=== PATIENT | male | born 1955 | race Caucasian/White ===

== ENCOUNTER 2021-04-14 18:17 | Inpatient (IN) | payer MEDICARE, SELFPAY ==
[2021-04-14] VITALS (7 sets, daily range): BP systolic 141–147; BP diastolic 74–88; PULSE 77–90; RESP 22–26; TEMP 36.5–37.1; O2SAT 83–94; BMI 32.3; BMI 31.9
--- NOTE | 2021-04-14 18:33 | ECG_ITS ---
APPROVED REPORT Exam: Resting ECG HR:87 bpm ECG Measurements Heart Rate 87 AXES RI 142 P 44 QRSd 100 QRS 6 QT 348 T -5 QTc 418 Conclusion Normal sinus rhythm Possible Left atrial enlargement T wave abnormality, consider inferior ischemia Abnormal ECG Electronically signed by : Cirilo Carrasquillo MD 04/18/2021 13:52:42
--- NOTE | 2021-04-14 18:51 | XR_ITS ---
PROCEDURE INFORMATION: Exam: XR Chest Exam date and time: 04/14/2021 6:51 PM Age: 65 years old Clinical indication: Cough and shortness of breath; Patient HX: Cough, congestion, shortness of breath, R/O covid 19. ; Additional info: SOA TECHNIQUE: Imaging protocol: XR of the chest. Views: 1 view. COMPARISON: No relevant prior studies available. FINDINGS: Lungs: Patchy left lung infiltrate peripherally, predominantly ground-glass, characteristic of COVID-19 pneumonitis. Pleural spaces: Unremarkable. No pleural effusion. No pneumothorax. Heart/Mediastinum: Unremarkable. No cardiomegaly. Bones/joints: Unremarkable. IMPRESSION: Patchy left lung infiltrate peripherally, predominantly ground-glass, characteristic of COVID-19 pneumonitis.
[2021-04-14 18:57] LABS: Influenza A, PCR Not Detected (NotDetected); Influenza B, PCR Not Detected (NotDetected)
--- NOTE | 2021-04-14 18:57 | HMH.EDGENADL ---
ED Disposition Clinical Impression: Pneumonia due to COVID-19 virus Respiratory failure with hypoxia Qualifiers: Chronicity: acute Qualified Code(s): J96.01 - Acute respiratory failure with hypoxia Pulmonary embolism Qualifiers: Pulmonary embolism type: single subsegmental (without acute cor pulmonale) Qualified Code(s): I26.93 - Single subsegmental pulmonary embolism without acute cor pulmonale Disposition: Admitted As Inpatient Condition on Discharge: Serious Referrals: Leroy Montero MD [Primary Care Provider] - - Critical Care Critical Care Time: Yes Attestation: On 04/14/21, the high probability of a clinically significant, sudden or life threatening deterioration of the following system(s) required my full and direct attention, intervention and personal management. The time I documented below is in addition to time spent performing reported procedures but includes the following listed in this critical care notation. Total Critical Care Time: 30 Vital system(s) involved:: Respiratory Failure My critical care processes included: Assessment & monitoring of V/S, Initial and Re-exams, Data Review/Interpretation, Coordinating Care, Medication Orders and management, Documentation Medical Decision Making - Joel Inquiry Pt receiving controlled substance: No Vital Signs: 04/14/21 18:18 04/14/21 18:19 04/14/21 18:22 Temperature 97.7 F Temperature Source Oral Pulse Rate Pulse Rate [Left Radial] 88 Respiratory Rate 26 H Blood Pressure [Right Arm] 142/74 H Blood Pressure Mean [Right Arm] 96 Blood Pressure Source [Right Arm] Automatic Cuff Blood Pressure Position [Right Arm] Sitting 02 Sat by Pulse Oximetry 83 L 86 L 91 L Oxygen Delivery Method Room Air Nasal Cannula Non-Rebreather Oxygen Flow Rate (LPM) 6 15 04/14/21 18:30 Temperature Temperature Source Pulse Rate 90 Pulse Rate [Left Radial] Respiratory Rate Blood Pressure [Right Arm] Blood Pressure Mean [Right Arm] Blood Pressure Source [Right Arm] Blood Pressure Position [Right Arm] 02 Sat by Pulse Oximetry 92 L Oxygen Delivery Method Oxygen Flow Rate (LPM) - Lab Data Lab Results 04/14/21 18:40: WBC 11.2 H, RBC 5.58, Hgb 17.2, Hct 51.5, MCV 92.4, MCH 30.7, MCHC 33.3, RDW 13.1, Plt Count 269, MPV 8.6, Neut % (Auto) 86.7 H, Lymph % (Auto) 10.6, [place] % (Auto) 1.9, Eos % (Auto) 0.0 L, Baso % (Auto) 0.8, Neut # (Auto) 9.7 H, Lymph # (Auto) 1.2, [place] # (Auto) 0.2, Eos # (Auto) 0.0, Baso # (Auto) 0.1, Total Counted 100, Neutrophils % (Manual) 82 H, Band Neutrophils % 8.0, Lymphocytes % (Manual) 10, Platelet Estimate Normal, RBC Morphology Normal 04/14/21 18:40: Sodium 133 L, Potassium 4.2, Chloride 94 L, Carbon Dioxide 30, Anion Gap 13.2, BUN 15, Creatinine 0.80, Estimated Creat Clear 113, Estimated GFR 96, Est GFR ( Amer) 117, Glucose 243 H, Calcium 8.8, Total Bilirubin 0.9, AST 74 H, ALT 66, Alkaline Phosphatase 89, Troponin I < 0.01, Total Protein 8.1, Albumin 3.9, Globulin 4.2 H, Albumin/Globulin Ratio 0.9 L 04/14/21 18:40: Lactate 2.2 H 04/14/21 18:40: SARS-CoV-2 (PCR) Detected A, Influenza A Untype (PCR) Not detected, Influenza Type B (PCR) Not detected 04/14/21 18:40: D-Dimer 0.92 H 04/14/21 18:40: ESR 7 04/14/21 18:40: Ferritin 305, C-Reactive Protein 140.5 H, Procalcitonin 0.243 04/14/21 19:11: Specimen Source R/r, O2 % 100, ABG pH 7.44, ABG pCO2 33.8 L, ABG pO2 67.7 L, ABG HCO3 22.3, ABG Total CO2 23.3, ABG O2 Saturation 95, ABG Base Excess -1.9, Willian Test Y Result diagrams: 04/14/21 18:40 04/14/21 18:40 Orders (Tests/Meds): ED MEDICATIONS Generic Name Dose Route Start Last Admin Trade Name Freq PRN Reason Stop Dose Admin Enoxaparin Sodium 110 mg 04/14/21 20:15 04/14/21 20:15 Enoxaparin 100mg/Ml Syringe 1 mg/kg (110 mg) 05/14/21 20:14 110 mg SQ Administration Q12H [facility] Ceftriaxone Sodium 1 gm/ 50 mls @ 100 mls/hr 04/14/21 19:15 04/14/21 20:00 Sodium Chloride IV 04/28/21 19:14 1
[2021-04-14 19:03] LABS: Basophils # 0.1 K/mm3 (0-0.2); Basophils % 0.8 % (0.1-2.0); Hematocrit 51.5 % (42.0-52.0); Hemoglobin 17.2 g/dL (14.1-18.0); Lymphocytes # 1.2 K/mm3 (0.7-4.5); Lymphocytes % 10.6 % (10-50); Mean Corpuscular HGB Conc 33.3 g/dL (31.8-35.4); Mean Corpuscular Hemoglobin 30.7 pg (27.0-31.2); Mean Corpuscular Volume 92.4 fl (80-94); Mean Platelet Volume 8.6 fl (7.4-10.4); Monocytes # 0.2 K/mm3 (0.1-1.0); Monocytes % 1.9 % (1.7-9.3); Neutrophils # 9.7 K/mm3 (1.8-7.8); Neutrophils % 86.7 % (37.0-80.0); Platelet Count 269 K/mm3 (142-424); Red Blood Count 5.58 M/mm3 (4.60-6.20); Red Cell Distribution Width 13.1 % (11.5-17.5); White Blood Count 11.2 K/mm3 (4.8-10.8)
[2021-04-14 19:05] LABS: MANUAL DIFFERENTIAL MANUAL DIFFERENTIAL (MANUAL DIFF)
[2021-04-14 19:09] LABS: Alanine Aminotransferase 66 U/L (12-78); Albumin Level 3.9 g/dl (3.5-5.0); Albumin/Globulin Ratio 0.9 (1.1-1.8); Alkaline Phosphatase 89 U/L (38-126); Anion Gap 13.2 mEq/L (5-15); Aspartate Amino Transferase 74 U/L (17-59); Bilirubin,Total 0.9 mg/dl (0.2-1.3); Blood Urea Nitrogen 15 mg/dl (9-20); Calcium 8.8 mg/dl (8.4-10.2); Carbon Dioxide 30 mmol/L (22.0-30.0); Chloride 94 mmol/L (98-107); Creatinine Clearance Estimated 113 mL/min (50-200); Estimated Glomerular Filt Rate 96 ml/min (>60); GFR (African American) 117 ML/MIN (>60); Globulin 4.2 g/dL (1.3-3.2); Glucose 243 mg/dl (74-100); Potassium 4.2 mmoL/L (3.5-5.1); Sodium 133 mmol/L (136-145); Total Protein,Serum 8.1 g/dl (6.3-8.2)
[2021-04-14 19:11] LABS: Lactic Acid 2.2 mmol/L (0.7-2.1)
--- NOTE | 2021-04-14 19:11 | CT_ITS ---
PROCEDURE INFORMATION: Exam: CTA Chest With Contrast Exam date and time: 04/14/2021 7:11 PM Age: 65 years old Clinical indication: Shortness of breath; Patient HX: Nonsmoker; Additional info: Covid, hypoxia TECHNIQUE: Imaging protocol: Computed tomographic angiography of the chest with contrast. 3D rendering (Not supervised by radiologist): MIP and/or 3D reconstructed images were created by the technologist. Radiation optimization: All CT scans at this facility use at least one of these dose optimization techniques: automated exposure control; mA and/or kV adjustment per patient size (includes targeted exams where dose is matched to clinical indication); or iterative reconstruction. Contrast material: ISO 370; Contrast volume: 70 ml; Contrast route: INTRAVENOUS (IV); COMPARISON: CR XR CHEST PORTABLE 04/14/2021 6:54 PM FINDINGS: Pulmonary arteries: Normal. No pulmonary emboli. Aorta: Unremarkable. No aortic aneurysm. No aortic dissection. Lungs: Posterior segment right lower lobe embolus. Bibasilar dependent atelectasis. Ground-glass peripheral infiltrates bilaterally characteristic of COVID-19 pneumonitis. Pleural spaces: Unremarkable. No pneumothorax. No pleural effusion. Heart: Unremarkable. No cardiomegaly. No pericardial effusion. Lymph nodes: Unremarkable. No enlarged lymph nodes. Liver: Fatty liver. Bones/joints: Unremarkable. No acute fracture. Soft tissues: Unremarkable. IMPRESSION: 1. Ground-glass peripheral infiltrates bilaterally characteristic of COVID-19 pneumonitis. 2. Posterior segment right lower lobe embolus. 3. Bibasilar dependent atelectasis. 4. Fatty liver.
[2021-04-14 19:14] LABS: Lymphocytes % 10 % (10-50); Neutrophils % 82 % (42-76); Platelet Estimate Normal; RBC Morphology Normal; Total Cells Counted 100
[2021-04-14 19:24] LABS: Coronavirus 19, PCR Detected (NotDetected)
[2021-04-14 19:25] LABS: C-Reactive Protein 140.5 mg/L (0-4)
[2021-04-14 19:28] LABS: D-Dimer 0.92 ug/mL (0.0-0.5)
[2021-04-14 19:29] LABS: Troponin I < 0.01 ng/ml (0.00-0.034)
[2021-04-14 19:39] LABS: Erythrocyte Sedimentation Rate 7 mm/hr (0-20)
[2021-04-14 19:57] LABS: Ferritin 305 ng/ml (17.9-464)
[2021-04-14 20:09] LABS: Procalcitonin 0.243 ng/mL (0.0-2.0)
[2021-04-14 20:09] LABS: ABG Base Excess -1.9 mmol/L (-2.4-2.3); ABG HCO3 22.3 mmhg (22.0-26.0); ABG Oxygen Saturation 95 % (90-100); ABG PCO2 33.8 mmhg (35.0-45.0); ABG PH 7.44 mmol/L (7.35-7.45); ABG PO2 67.7 mmhg (80-100); ABG TCO2 23.3 mmhg (23-27)
[2021-04-14 20:10] LABS: Allen's Test Y; Oxygen 100 %; Source R/R
--- NOTE | 2021-04-14 20:21 | PC.NURSE ---
pt states he does not see a family dr, cici Casey change pt pcp from Dr. Montero to Provider referral.
--- NOTE | 2021-04-14 20:24 | PC.NURSE ---
password setup as Oumar
--- NOTE | 2021-04-14 21:15 | PC.NURSE ---
patient up to floor via wheelchair @ this time.
[2021-04-14 21:30] LABS: Reflex Lactic Add Lactic Reflex
[2021-04-14 22:10] LABS: Lactate Dehydrogenase 435 U/L (313-618)
[2021-04-14 22:35] LABS: Lactic Acid Follow Up (RFLX 1) 1.2 mmol/L (0.7-2.1)
[2021-04-15] VITALS (8 sets, daily range): BP systolic 117–166; BP diastolic 58–86; PULSE 60–88; RESP 16–20; TEMP 36.5–36.9; O2SAT 90–96
--- NOTE | 2021-04-15 07:00 | CA_ITS ---
APPROVED REPORT EXAM: Comprehensive 2D, Doppler, and color-flow Echocardiogram [employer] Engineer: Rebecca Fong CRT Ht: 6 ft 0 in Wt: 241lbs BSA: 2.31 BP: 142/74 mmHg Indications: Covid 19 +, on vapotherm, PE 2D Dimensions LVOT 2.09 cm (M/F) 1.5-2.5 LA Volume 65.00 mL LA Volume Index 28.10 mL/m2 (M/F) 16-34 M-Mode Dimensions RVDd 2.71 cm (0.9-2.6) LA Diam 3.75 cm (1.9-4.0) LVDd 5.69 cm (3.5-5.7) Ao Diam 3.87 cm (2.0-3.7) LVDs 4.03 cm (3.5-5.7) IVSd 1.75 cm (0.6-1.1) PWd 1.08 cm (0.6-1.1) EF (Teich) 55.30% FS 29.20% EDV (Teich) 159.40 mL TAPSE 2.70 (<1.7) ESV (Teich) 71.30 mL LV Diastology E Decel Time 197.00 (160-240 msec) E/A Ratio 1.12 MED E' 3.90 (< 7 cm/sec) MED A' 6.80 cm/s E'/MED E' Ratio 29.82 (>14) LAT E' 12.30 (<10 cm/sec) LAT A' 5.20 cm/s E/LAT E' Ratio 9.46 (>14) Aortic Valve AO Peak GR. 8.10 mmHg Mitral Valve MV E Max Prashanth. 116.00 (40-130 cm/s) MV A Velocity 103.00 (40-130 cm/s) E/A Ratio 1.12 MV Decel. Time 197.00 (160-240 ms) MV PHT 58.00 ms Tricuspid Valve TR P. Velocity 110.00 cm/s RAP Estimate 10.00 mmHg RVSP 14.80 mmHg Left Ventricle Left atrium is mildly enlarged, left ventricle is normal size, there is no concentric left ventricular hypertrophy, visually estimated ejection fraction 55% with no regional wall motion abnormality, diastolic parameters are inconclusive. Right Ventricle Right atrium and right ventricle are mildly left with normal contractility. Aortic Valve Aortic valve is grossly normal, there is no aortic stenosis or aortic insufficiency. Mitral Valve Multiple leaflets are minimally thickened, there is mild-moderate regurgitation. Tricuspid Valve Tricuspid valve is grossly normal, there is trace tricuspid regurgitation, tricuspid regurgitation jet velocity is inadequate for calculation of the right ventricular systolic pressure. Pulmonic Valve Pulmonic valve is poorly visualized. Great Vessels Aortic root is normal size. Inferior vena cava is not well visualized. Pericardium No significant pericardial effusion noted. Conclusion 1. Mild biatrial enlargement, normal left ventricular size, visually estimated ejection fraction 55% with no regional wall motion abnormality, diastolic parameters are inconclusive. 2. Mildly enlarged right ventricle with normal contractility. 3. Trace mitral and tricuspid regurgitation. 4. No significant pericardial effusion noted. 5. Inferior vena cava is poorly visualized. Electronically signed by : Roger Miranda MD 04/15/2021 13:36:58
--- NOTE | 2021-04-15 07:40 | HMH.PHAVTE ---
[facility] Pharmacy VTE Monitoring - Patient Demographics Admission date: 04/15/21 Report Date: 04/15/21 Time: 07:40 Allergies/Adverse Reactions: Patient Allergies No Known Allergies Allergy (Verified 04/14/21 18:51) Height: 1.85 m Weight: 109.406 kg Patient Problems: Current Active Problems Pneumonia due to COVID-19 virus (Acute) Respiratory failure with hypoxia (Acute) Pulmonary embolism (Acute) - VTE Risk Labs: VTE Related Lab Results Hgb 17.2 g/dL (14.1-18.0) 04/14/21 18:40 Hct 51.5 % (42.0-52.0) 04/14/21 18:40 Plt Count 269 K/mm3 (142-424) 04/14/21 18:40 BUN 15 mg/dl (9-20) 04/14/21 18:40 Creatinine 0.80 mg/dl (0.66-1.25) 04/14/21 18:40 Estimated Creat Clear 113 mL/min (50-200) 04/14/21 18:40 VTE Score: 2 Clinical Trial Participant: No - Prophylaxis VTE Prophylaxis Ordered?: Yes Types of VTE Prophylaxis: TEDS Knee High, Pharmacological Pharmacologic Type: Enoxaparin
--- NOTE | 2021-04-15 08:38 | PC.NURSE ---
Pt has been pleasant and cooperative since arriving to floor. Pt is tolerating 30L, 100% O2 via Vapotherm well with sats >90%. No complaints have been voiced to staff. Call light within reach.
--- NOTE | 2021-04-15 09:17 | HMH.HP ---
*Admission Date: 04/15/21 *Chief complaint: Shortness of breath *History of present illness: 65-year-old male patient presents to the [facility] emergency department with reports of increasing shortness of breath, fatigue, nonproductive cough for approximately 11 days. He reports he has had fever/chills/body aches and Waiting to get better and shortness of breath to decrease when shortness of breath increased he decided to go to the emergency department. 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 He does not have a primary care provider denies any medication and does not have any chronic medical conditions, he also reports he is a non-smoker 04/14/21 CXR: FINDINGS: Lungs: Patchy left lung infiltrate peripherally, predominantly ground-glass, characteristic of COVID-19 pneumonitis. Pleural spaces: Unremarkable. No pleural effusion. No pneumothorax. Heart/Mediastinum: Unremarkable. No cardiomegaly. Bones/joints: Unremarkable. IMPRESSION: Patchy left lung infiltrate peripherally, predominantly ground-glass, characteristic of COVID-19 pneumonitis. Electronically signed by Tomas Lopez MD 04/14/21 Chest CTA: FINDINGS: Pulmonary arteries: Normal. No pulmonary emboli. Aorta: Unremarkable. No aortic aneurysm. No aortic dissection. Lungs: Posterior segment right lower lobe embolus. Bibasilar dependent atelectasis. Ground-glass peripheral infiltrates bilaterally characteristic of COVID-19 pneumonitis. Pleural spaces: Unremarkable. No pneumothorax. No pleural effusion. Heart: Unremarkable. No cardiomegaly. No pericardial effusion. Lymph nodes: Unremarkable. No enlarged lymph nodes. Liver: Fatty liver. Bones/joints: Unremarkable. No acute fracture. Soft tissues: Unremarkable. IMPRESSION: 1. Ground-glass peripheral infiltrates bilaterally characteristic of COVID-19 pneumonitis. 2. Posterior segment right lower lobe embolus. 3. Bibasilar dependent atelectasis. 4. Fatty liver. Addendum Dictated By: Tomas Lopez MD 65-year-old male patient resting in bed quietly denies any increased shortness of breath during the night current oxygenation 94% on 30 L 100% Vapotherm. [facility] History *Have you ever received a pneumonia vaccine?: No *Have you received a flu vaccine this season?: No - *Social History Last grade of school completed: Some college Smoking Status: Never smoker Alcohol Intake: never *Occupational Status:: employed Household Members: spouse *Travel in the last 8 weeks: None Family Hx:: No significant family history Review of Systems - Review of Systems Review of systems:: pertinent systems reviewed and negative unless documented below - Constitutional Reports body ache(s), Reports chills, Reports fatigue, Reports fever(s) - Eyes Denies change in vision, Denies double vision - ENT Denies difficulty swallowing, Denies headache(s) - *Cardiovascular Reports shortness of breath, Reports shortness of breath with activity, Denies chest pain - *Respiratory Reports chest congestion, Reports cough, Reports shortness of breath, Reports shortness of breath with activity, Denies coughing up blood - *Gastrointestinal Denies abdominal pain, Denies change in stools - *Musculoskeletal Denies abnormal walking, Denies back pain - Integumentary/Breasts Denies hair loss, Denies non-healing lesions - *Neurologic Reports weakness, Denies abnormal walking, Denies abnormal speech - Psychiatric Denies lack of enjoyment, Denies behavioral changes - Endocrine Denies cold intolerance, Denies excessive sweating - Hematologic/Lymphatic Denies easy bleeding, Denies easy bruising - Allergic/Immunologic Denies GI upset with certain foods, Denies itchy eyes Meds Home Medications Medication Instructions Recorded Confirmed Type No Known Home Medications 04/14/21 04/14/21 History
--- NOTE | 2021-04-15 09:30 | HMH.PULMCON ---
*Admission Date: 04/15/21 *Reason for consult:: Acute hypoxic respiratory failure, COVID-19 pneumonia *History of present illness: Mr. Donald is a 65-year-old no significant prior respiratory complaints, no smoking history, not yet vaccinated for COVID-19 pneumonia presented to the hospital with worsening respiratory status and found to be having Covid important was called for further management. 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 He is not sure where he has contracted COVID-19 from. [facility] History *Have you ever received a pneumonia vaccine?: No *Have you received a flu vaccine this season?: No - *Social History Last grade of school completed: Some college Smoking Status: Never smoker Alcohol Intake: never *Occupational Status:: employed Household Members: spouse *Travel in the last 8 weeks: None Family Hx:: No significant family history ROS - Cons Reports body ache(s), Reports chills, Reports lack of energy, Reports malaise - Eyes Denies change in vision - ENT Denies bleeding gums - Card Reports shortness of breath, Reports shortness of breath with activity - Resp Respiratory: Reports change in phlegm color, Reports chest congestion, Reports cough, Reports excessive phlegm production, Reports cough with sputum production, Denies wheezing - GI Gastrointestingal: Denies: abdominal pain - Psych Denies thoughts of hurting/killing others, Denies thoughts of hurting/killing yourself Meds Home Medications Medication Instructions Recorded Confirmed Type No Known Home Medications 04/14/21 04/14/21 History Allergies Allergy/AdvReac Type Severity Reaction Status Date / Time No Known Allergies Allergy Verified 04/14/21 18:51 Exam - Constitutional Constitutional:: Absent: no acute distress, comfortable - HENMT Exam HENMT: Present: normocephalic, atraumatic - Eye Exam Eyes:: Present: normal appearance both eyes and related structures - Neck Exam Neck:: Present: normal visual inspection - Respiratory Exam Respiratory:: Present: able to speak in complete sentences, respiratory distress, rales. Absent: accessory muscle use, wheezing - Cardiovascular Exam Cardiac:: Present: S1, S2 - GI Exam GI:: Present: soft - Skin Exam Skin: Present: warm, no rash - Neurological Exam Neurological: Present: alert, awake, normal cognition - Extremities Exam Extremities: Present: no cyanosis, no clubbing, no edema Internal Medicine - CN: Reslt - Labs CBC & Chem 7: 04/14/21 18:40 04/14/21 18:40 Labs: Short CBC 04/14/21 Range/Units 18:40 WBC 11.2 H (4.8-10.8) K/mm3 Hgb 17.2 (14.1-18.0) g/dL Hct 51.5 (42.0-52.0) % Plt Count 269 (142-424) K/mm3 BMP 04/14/21 18:40 Sodium 133 L Potassium 4.2 Chloride 94 L Carbon Dioxide 30 BUN 15 Creatinine 0.80 Glucose 243 H Calcium 8.8 Cardiac Enzymes 04/14/21 Range/Units 18:40 Troponin I < 0.01 (0.00-0.034) ng/ml Liver Function 04/14/21 Range/Units 18:40 Total Bilirubin 0.9 (0.2-1.3) mg/dl AST 74 H (17-59) U/L ALT 66 (12-78) U/L Alkaline Phosphatase 89 (38-126) U/L Albumin 3.9 (3.5-5.0) g/dl - ABG Interpretation ABG results: 04/14/21 19:11 ABG pH 7.44 ABG pCO2 33.8 L ABG pO2 67.7 L ABG HCO3 22.3 ABG Total CO2 23.3 ABG O2 Saturation 95 ABG Base Excess -1.9 Assessment and Plan - Assessment and plan all Dx Assessment and Plan for all problems:: #Acute hypoxic respiratory failure #COVID-19 pneumonia: 65-year-old male, no significant prior respiratory complaints, no significant smoking history. Not yet vaccinated for COVID-19 pneumonia. Present with worsening fatigue malaise and respiratory distress. CRP elevated at 140. D-dimer at 0.92. CTA revealed no pulmonary embolism showed bilateral diffuse groundglass opacities along with
--- NOTE | 2021-04-15 15:02 | PC.NURSE ---
RESP CARE NOTE: Pt expectorated moderate amount of thick yellow sputum, specimen sent to lab.
--- NOTE | 2021-04-15 19:15 | PC.NURSE ---
no acute changes this shift. remains on vapotherm 30\100. tolerating well. appetite fair. no c/o this shift.
[2021-04-16] VITALS (14 sets, daily range): BP systolic 115–158; BP diastolic 50–79; PULSE 48–64; RESP 18–22; TEMP 36.1–36.9; O2SAT 86–97; BMI 31.8
[2021-04-16 07:13] LABS: Alanine Aminotransferase 45 U/L (12-78); Albumin Level 3.3 g/dl (3.5-5.0); Albumin/Globulin Ratio 0.9 (1.1-1.8); Alkaline Phosphatase 79 U/L (38-126); Anion Gap 13.8 mEq/L (5-15); Aspartate Amino Transferase 52 U/L (17-59); Bilirubin,Total 0.6 mg/dl (0.2-1.3); Blood Urea Nitrogen 26 mg/dl (9-20); Calcium 8.2 mg/dl (8.4-10.2); Carbon Dioxide 25 mmol/L (22.0-30.0); Chloride 104 mmol/L (98-107); Creatinine Clearance Estimated 110 mL/min (50-200); Estimated Glomerular Filt Rate 112 ml/min (>60); GFR (African American) 136 ML/MIN (>60); Globulin 3.5 g/dL (1.3-3.2); Glucose 269 mg/dl (74-100); Potassium 3.8 mmoL/L (3.5-5.1); Sodium 139 mmol/L (136-145); Total Protein,Serum 6.8 g/dl (6.3-8.2)
--- NOTE | 2021-04-16 09:24 | P.PN_ITS ---
Internal Medicine - PN: Subj *Date: 04/16/21 *Time: 11:40 Interval history: Patient respiratory status remained relatively stable since yesterday. Denies any worsening respiratory symptoms. Exam - Constitutional Constitutional:: Present: no acute distress, comfortable - HENMT Exam HENMT: Present: normocephalic, atraumatic - Eye Exam Eyes:: Present: normal appearance both eyes and related structures - Neck Exam Neck:: Present: normal visual inspection - Respiratory Exam Respiratory:: Present: able to speak in complete sentences, respiratory distress, rales. Absent: accessory muscle use, wheezing - Cardiovascular Exam Cardiac:: Present: S1, S2 - GI Exam GI:: Present: soft - Skin Exam Skin: Present: warm, no rash - Neurological Exam Neurological: Present: alert, awake, normal cognition - Extremities Exam Extremities: Present: no cyanosis, no clubbing, no edema Assessment and Plan - Assessment and plan all Dx Assessment and Plan for all problems:: #Acute hypoxic respiratory failure #COVID-19 pneumonia: 65-year-old male, no significant prior respiratory complaints, no significant smoking history. Not yet vaccinated for COVID-19 pneumonia. Present with worsening fatigue malaise and respiratory distress. CRP elevated at 140. D-dimer at 0.92. CTA revealed no pulmonary embolism showed bilateral diffuse groundglass opacities along with lower lobe patchy consolidation/atelectasis. Interval update: Respiratory status remains stable. Sputum culture less than 10 WBC, gram- positive cocci, yeast and hyphae. Echocardiogram, normal EF with inconclusive diastolic parameters. Plan: -Initiate proning protocol, discussed with the nursing staff to ensure compliance -Continue high flow nasal cannula to maintain O2 saturation goal of 88% -Continue ceftriaxone azithromycin for total of 5 days, blood cultures pending. -Continue remdesivir, dexamethasone and baricitinib. -Combivent every 6 as needed. Thank for involving pulmonary in this patient care. We will continue to follow.
--- NOTE | 2021-04-16 09:26 | P.PN_ITS ---
Internal Medicine - PN: Subj *Date: 04/16/21 *Time: 09:26 Interval history: 65-year-old male patient lying in bed resting quietly, he denies any increased respiratory distress during the night and reports he feels slightly better today than yesterday. Oxygenation 93% on 30 L 100% Vapotherm Exam Vital signs and Labs for Last 24 Hours: Temp Pulse Resp BP Pulse Ox 97.9 F 50 L 19 141/56 H 97 04/16/21 08:00 04/16/21 08:00 04/16/21 08:00 04/16/21 08:00 04/16/21 08:00 Laboratory Results - last 24 hr 04/16/21 06:14: Sodium 139, Potassium 3.8, Chloride 104, Carbon Dioxide 25, Anion Gap 13.8, BUN 26 H D, Creatinine 0.70, Estimated Creat Clear 110, Estimated GFR 112, Est GFR ( Amer) 136, Glucose 269 H, Calcium 8.2 L, Tot al Bilirubin 0.6, AST 52 D, ALT 45 D, Alkaline Phosphatase 79, Total Protein 6.8, Albumin 3.3 L D, Globulin 3.5 H, Albumin/Globulin Ratio 0.9 L I & O for Last 24 hours: Intake & Output 04/13/21 04/14/21 04/15/21 04/16/21 23:59 23:59 23:59 23:59 Intake Total 360 / 360 Output Total 1800 / 2350 950 / 950 Balance -1440 / -1990 -950 / -950 Weight 241 lb 3.2 oz 240 lb 3.2 oz Microbiology Reports for the Last 24 Hours: Microbiology 04/15/21 09:18 Sputum - Expectorated Sputum Gram Stain - Final - Constitutional no acute distress - *Routine HEENT Exam Head: Present: normocephalic Eye: Present: EOMI ENT: Present: mucous membranes moist - *Routine Neck Exam Present: trachea midline. Absent: tracheal deviation - *Routine Respiratory Exam Present: crackles. Absent: accessory muscle use - *Routine Cardiovascular Exam Present: RRR - *Routine Abdominal Exam Present: soft, normoactive bowel sounds. Absent: tenderness, firm - *Routine Extremities Exam Present: full ROM, pulses intact. Absent: cyanosis, clubbing, calf tenderness - *Routine Skin Exam Present: intact, dry. Absent: cyanosis, erythema - *Routine Neurological Exam Present: alert, oriented X3. Absent: motor deficit - Routine Psychiatric Exam Present: normal affect, normal thought process. Absent: visual hallucinations Assessment and Plan - Assessment and plan all Dx Assessment and Plan for all problems:: Rounded with Dr. Maxwell, all orders per Dr. Recio: 1. Continue to wean oxygen as tolerated 2. Continue current medical regimen 3. Pulmonology following
--- NOTE | 2021-04-16 11:38 | PC.NURSE ---
spoke with dr peters who stated he wanted patient placed into stepdown. orders will be placed.
--- NOTE | 2021-04-16 12:38 | PC.NURSE ---
Report received from Ameya Glover RN
--- NOTE | 2021-04-16 12:59 | PC.NURSE ---
Pt just transferred to 216 per Kyle Morales, SRNA
--- NOTE | 2021-04-16 15:49 | PC.NURSE ---
Pt is alert and oriented x4. He remains on vapotherm 30L/100% with O2 sats mostly > 88%. It occasionally drops as low 84% but he rebounds fairly quickly. He's been sinus cristela on telemetry. He uses a urinal at the bedside independently. Appetite is OK. No complaints verbalized.
[2021-04-17] VITALS (14 sets, daily range): BP systolic 109–167; BP diastolic 54–80; PULSE 45–63; RESP 23–38; TEMP 36.3–36.9; O2SAT 88–97; BMI 31.4; BMI 31.5
--- NOTE | 2021-04-17 03:16 | PC.NURSE ---
1445 dr lynch was notified regarding pt with bradycardia on monitor, no heart block seen, pt arousable and b/p stable, pt with no complaints at this time, dr. lynch stated to continue to monitor, no orders or changes given at this time.
[2021-04-17 06:29] LABS: Basophils # 0.1 K/mm3 (0-0.2); Basophils % 0.4 % (0.1-2.0); Hematocrit 47.1 % (42.0-52.0); Hemoglobin 15.3 g/dL (14.1-18.0); Lymphocytes # 1.1 K/mm3 (0.7-4.5); Lymphocytes % 8.1 % (10-50); Mean Corpuscular HGB Conc 32.5 g/dL (31.8-35.4); Mean Corpuscular Hemoglobin 30.3 pg (27.0-31.2); Mean Corpuscular Volume 93.2 fl (80-94); Monocytes # 0.4 K/mm3 (0.1-1.0); Neutrophils # 12.6 K/mm3 (1.8-7.8); Neutrophils % 88.5 % (37.0-80.0); Platelet Count 360 K/mm3 (142-424); Red Blood Count 5.05 M/mm3 (4.60-6.20); Red Cell Distribution Width 13.2 % (11.5-17.5); White Blood Count 14.2 K/mm3 (4.8-10.8)
[2021-04-17 06:32] LABS: Alanine Aminotransferase 43 U/L (12-78); Albumin Level 3.2 g/dl (3.5-5.0); Albumin/Globulin Ratio 0.9 (1.1-1.8); Alkaline Phosphatase 82 U/L (38-126); Anion Gap 9.7 mEq/L (5-15); Aspartate Amino Transferase 54 U/L (17-59); Bilirubin,Total 0.4 mg/dl (0.2-1.3); Blood Urea Nitrogen 24 mg/dl (9-20); Calcium 7.8 mg/dl (8.4-10.2); Carbon Dioxide 26 mmol/L (22.0-30.0); Chloride 106 mmol/L (98-107); Creatinine Clearance Estimated 110 mL/min (50-200); Estimated Glomerular Filt Rate 112 ml/min (>60); GFR (African American) 136 ML/MIN (>60); Globulin 3.5 g/dL (1.3-3.2); Glucose 235 mg/dl (74-100); Potassium 3.7 mmoL/L (3.5-5.1); Sodium 138 mmol/L (136-145); Total Protein,Serum 6.7 g/dl (6.3-8.2)
[2021-04-17 06:51] LABS: MANUAL DIFFERENTIAL MANUAL DIFFERENTIAL (MANUAL DIFF)
--- NOTE | 2021-04-17 07:09 | PC.NURSE ---
pt noted with bradycardia through the night, HR 43 to 49, pt asymptomatic, pt has been on vapotherm most of night at 30/100; pt had episode when ambulating sats dropped to 78, pt wanted up in chair and non rebreather placed as it was taking more effort for sats to get to 88%. pt remains on non-rebreather with sats 88-90.
[2021-04-17 08:48] LABS: Lymphocytes % 8 % (10-50); Neutrophils % 92 % (42-76); Platelet Estimate Normal; Total Cells Counted 100
[2021-04-17 08:49] LABS: RBC Morphology Normal
--- NOTE | 2021-04-17 09:32 | P.PN_ITS ---
Internal Medicine - PN: Subj *Date: 04/17/21 *Time: 13:37 Interval history: No acute respiratory events overnight. Patient oxygenation requirements continue to worsen. He denies any worsening respiratory symptoms. Exam - Constitutional Constitutional:: Present: no acute distress, comfortable - HENMT Exam HENMT: Present: normocephalic, atraumatic - Eye Exam Eyes:: Present: normal appearance both eyes and related structures - Neck Exam Neck:: Present: normal visual inspection - Respiratory Exam Respiratory:: Present: able to speak in complete sentences, respiratory distress, rales - Cardiovascular Exam Cardiac:: Present: S1, S2 - GI Exam GI:: Present: soft - Skin Exam Skin: Present: warm, no rash - Neurological Exam Neurological: Present: alert, awake, normal cognition - Extremities Exam Extremities: Present: no cyanosis, no clubbing, no edema Assessment and Plan - Assessment and plan all Dx Assessment and Plan for all problems:: #Acute hypoxic respiratory failure #COVID-19 pneumonia: #Pulmonary embolus: 65-year-old male, no significant prior respiratory complaints, no significant smoking history. Not yet vaccinated for COVID-19 pneumonia. Present with worsening fatigue malaise and respiratory distress. CRP elevated at 140. D-dimer at 0.92. CTA showed right lower lobe pulmonary emboli showed bilateral diffuse groundglass opacities along with lower lobe patchy consolidation/atelectasis. Sputum culture less than 10 WBC, gram-positive cocci, yeast and hyphae. Echocardiogram, normal EF with inconclusive diastolic parameters. Interval update: Patient respiratory status remain critical needing high oxygen requirements. Patient saturating 89 to 90% on high flow nasal cannula this morning. He is not compliant with proning protocol. I have discussed with the patient regarding the importance of proning protocol. And also discussed with the family regarding the management options and possible outcomes along with associated mor bidity mortality Slight worsening leukocytosis. Renal function stable. Plan: -Continue proning protocol, patient reiterated the need for proning again today -Continue high flow nasal cannula to maintain O2 saturation goal of 88% -Continue ceftriaxone azithromycin for total of 5 days, blood cultures no growth 48 hours. Follow-up with nasal MRSA PCR -Continue remdesivir, dexamethasone and baricitinib. -Continue Lovenox twice daily for PE -Combivent every 6 as needed. Thank for involving pulmonary in this patient care. We will continue to follow.
--- NOTE | 2021-04-17 10:31 | HMH.ACPN2 ---
Internal Medicine - PN: Subj *Date: 04/17/21 *Time: 09:15 Interval history: pt states soa, has been moving around in room, states he did not eat breakfast but he has been eating snack cakes Exam Vital signs and Labs for Last 24 Hours: Temp Pulse Resp BP Pulse Ox 98.1 F 48 L 26 H 161/80 H 88 L 04/17/21 08:00 04/17/21 10:00 04/17/21 10:00 04/17/21 10:00 04/17/21 10:00 Laboratory Results - last 24 hr 04/17/21 05:39: WBC 14.2 H D, RBC 5.05, Hgb 15.3, Hct 47.1, MCV 93.2, MCH 30.3, MCHC 32.5, RDW 13.2, Plt Count 360 D, MPV 9.0, Neut % (Auto) 88.5 H, Lymph % (Auto) 8.1 L, [place] % (Auto) 3.0, Eos % (Auto) 0.0 L, Baso % (Auto) 0.4, Neut # (Auto) 12.6 H, Lymph # (Auto) 1.1, [place] # (Auto) 0.4, Eos # (Auto) 0.0, Baso # (Auto) 0.1, Total Counted 100, Neutrophils % (Manual) 92 H, Lymphocytes % (Manual) 8 L, Platelet Estimate Normal, RBC Morphology Normal 04/17/21 05:39: Sodium 138, Potassium 3.7, Chloride 106, Carbon Dioxide 26, Anion Gap 9.7, BUN 24 H, Creatinine 0.70, Estimated Creat Clear 110, Estimated GFR 112, Est GFR ( Amer) 136, Glucose 235 H, Calcium 7.8 L, Total Bilirubin 0.4, AST 54, ALT 43, Alkaline Phosphatase 82, Total Protein 6.7, Albumin 3.2 L, Globulin 3.5 H, Albumin/Globulin Ratio 0.9 L I & O for Last 24 hours: Intake & Output 04/14/21 04/15/21 04/16/21 04/17/21 11:59 11:59 11:59 11:59 Intake Total 240 / 240 120 / 120 2181 / 2181 Output Total 300 / 300 2450 / 2925 2575 / 2575 Balance -60 / -60 -2330 / -2805 -394 / -394 Weight 241 lb 3.2 oz 240 lb 3.2 oz 237 lb 3.2 oz Microbiology Reports for the Last 24 Hours: Microbiology 04/15/21 09:18 Sputum - Expectorated Sputum Gram Stain - Final 04/15/21 09:18 Sputum - Expectorated Sputum Sputum Culture - Preliminary 04/14/21 18:52 Blood Blood Culture - Preliminary NO GROWTH AFTER 48 HOURS 04/14/21 18:52 Blood Blood Culture - Preliminary NO GROWTH AFTER 48 HOURS - Constitutional no acute distress - *Routine HEENT Exam Head: Present: normocephalic Eye: Present: PERRL ENT: Present: mucous membranes moist - *Routine Neck Exam Present: supple. Absent: lymphadenopathy - *Routine Respiratory Exam Present: rhonchi, diminished air movement - *Routine Cardiovascular Exam Present: RRR - *Routine Abdominal Exam Present: soft, normoactive bowel sounds. Absent: tenderness - *Routine Extremities Exam Absent: cyanosis, clubbing, edema - *Routine Skin Exam Present: warm. Absent: rash - *Routine Neurological Exam Present: alert, oriented X3 Assessment and Plan (1) Pneumonia due to COVID-19 virus Status: Acute Category: Medical Code(s): U07.1 - COVID-19; J12.82 - Pneumonia due to coronavirus disease 2019 (2) Pulmonary embolism Status: Acute Qualifiers: Pulmonary embolism type: single subsegmental (without acute cor pulmonale) Qualified Code(s): I26.93 - Single subsegmental pulmonary embolism without acute cor pulmonale Category: Medical Code(s): I26.99 - Other pulmonary embolism without acute cor pulmonale (3) Respiratory failure with hypoxia Status: Acute Qualifiers: Chronicity: acute Qualified Code(s): J96.01 - Acute respiratory failure with hypoxia Category: Medical Code(s): J96.91 - Respiratory failure, unspecified with hypoxia - Assessment and plan all Dx Assessment and Plan for all problems:: rounded with dr zurita all orders per dr zurita pulm consult
--- NOTE | 2021-04-17 17:09 | PC.NURSE ---
Pt alert and oriented x 4. Lungs clear but diminished. He remains on 40L/100% vapotherm and NRB. O2 sats have been 82-88% but renee as high as 98% when pt laid on his side/stomach. He was unable to lay completely flat on his stomach but tolerated his side/stomach for 5 hours so far. Appetite has been poor today, he mainly wanted to sleep but was encouraged to get up to the chair and eat. He has been sinus cristela w/prolonged qt on telemetry. HR as low as 40's. I've spoken with multiple family members multiple times today and they have been updated on pt's condition and poc.
[2021-04-18] VITALS (14 sets, daily range): BP systolic 116–187; BP diastolic 61–117; PULSE 50–88; RESP 20–40; TEMP 36.3–36.7; O2SAT 90–99; BMI 31.5
--- NOTE | 2021-04-18 05:51 | PC.NURSE ---
pt resltless through the night, pt remains on vapotherm with use of non rebreather on occassion, pt sats 90-94%, pt would not completely prone through the night and would lay on side to side only, pt stated his back and hip hurt when he lays pronem VSS
[2021-04-18 06:37] LABS: Basophils # 0.1 K/mm3 (0-0.2); Basophils % 0.4 % (0.1-2.0); Eosinophils % 0.1 % (0.1-12.0); Hematocrit 44.3 % (42.0-52.0); Hemoglobin 14.8 g/dL (14.1-18.0); Lymphocytes # 0.7 K/mm3 (0.7-4.5); Mean Corpuscular HGB Conc 33.5 g/dL (31.8-35.4); Mean Corpuscular Hemoglobin 30.3 pg (27.0-31.2); Mean Corpuscular Volume 90.4 fl (80-94); Mean Platelet Volume 8.9 fl (7.4-10.4); Monocytes # 0.2 K/mm3 (0.1-1.0); Neutrophils % 91.5 % (37.0-80.0); Platelet Count 358 K/mm3 (142-424); Red Blood Count 4.89 M/mm3 (4.60-6.20); Red Cell Distribution Width 13.3 % (11.5-17.5)
[2021-04-18 06:45] LABS: MANUAL DIFFERENTIAL MANUAL DIFFERENTIAL (MANUAL DIFF)
[2021-04-18 06:52] LABS: Alanine Aminotransferase 42 U/L (12-78); Albumin Level 3.2 g/dl (3.5-5.0); Albumin/Globulin Ratio 0.9 (1.1-1.8); Alkaline Phosphatase 85 U/L (38-126); Anion Gap 12.6 mEq/L (5-15); Aspartate Amino Transferase 62 U/L (17-59); Bilirubin,Total 0.8 mg/dl (0.2-1.3); Blood Urea Nitrogen 15 mg/dl (9-20); Calcium 7.8 mg/dl (8.4-10.2); Carbon Dioxide 23 mmol/L (22.0-30.0); Chloride 105 mmol/L (98-107); Creatinine Clearance Estimated 110 mL/min (50-200); Estimated Glomerular Filt Rate 134 ml/min (>60); GFR (African American) 163 ML/MIN (>60); Globulin 3.5 g/dL (1.3-3.2); Glucose 178 mg/dl (74-100); Potassium 3.6 mmoL/L (3.5-5.1); Sodium 137 mmol/L (136-145); Total Protein,Serum 6.7 g/dl (6.3-8.2)
[2021-04-18 07:43] LABS: Lymphocytes % 6 % (10-50); Monocytes % 3 % (2-9); Neutrophils % 91 % (42-76); Platelet Estimate Normal; RBC Morphology Normal; Total Cells Counted 100
--- NOTE | 2021-04-18 09:18 | HMH.ACPN2 ---
Internal Medicine - PN: Subj *Date: 04/18/21 *Time: 09:18 Interval history: 65-year-old male patient sitting up in chair in no respiratory distress. Current oxygenation 92% on 30 L 100% Vapotherm with 100% nonrebreather occasionally. Explained importance of pronation the patient he verbalizes understanding and reports he does have a painful lower back, explained we will prescribe pain medicine and he will attempt to pronate more often. Long discussion with and 2 sons regarding patient medical condition all are in agreement with intubation. If necessary Exam Vital signs and Labs for Last 24 Hours: Temp Pulse Resp BP Pulse Ox 98.1 F 58 L 40 H 160/80 H 93 L 04/18/21 02:00 04/18/21 06:00 04/18/21 06:00 04/18/21 06:00 04/18/21 06:00 Laboratory Results - last 24 hr 04/18/21 05:34: WBC 12.0 H, RBC 4.89, Hgb 14.8, Hct 44.3, MCV 90.4, MCH 30.3, MCHC 33.5, RDW 13.3, Plt Count 358, MPV 8.9, Neut % (Auto) 91.5 H, Lymph % (Auto) 6.0 L, [place] % (Auto) 2.0, Eos % (Auto) 0.1, Baso % (Auto) 0.4, Neut # (Auto) 11.0 H, Lymph # (Auto) 0.7, [place] # (Auto) 0.2, Eos # (Auto) 0.0, Baso # (Auto) 0.1, Total Counted 100, Neutrophils % (Manual) 91 H, Lymphocytes % (Manual) 6 L, Monocytes % (Manual) 3, Platelet Estimate Normal, RBC Morphology Normal 04/18/21 05:34: Sodium 137, Potassium 3.6, Chloride 105, Carbon Dioxide 23, Anion Gap 12.6, BUN 15 D, Creatinine 0.60 L, Estimated Creat Clear 110, Estimated GFR 134, Est GFR ( Amer) 163, Glucose 178 H D, Calcium 7.8 L, Total Bilirubin 0.8, AST 62 H, ALT 42, Alkaline Phosphatase 85, Total Protein 6.7, Albumin 3.2 L, Globulin 3.5 H, Albumin/Globulin Ratio 0.9 L I & O for Last 24 hours: Intake & Output 01/10/22 01/11/22 01/12/22 01/13/22 23:59 23:59 23:59 23:59 Intake Total 360 / 360 600 / 600 2762 / 3744 982 / 982 Output Total 1800 / 2350 2650 / 3025 1375 / 1775 400 / 400 Balance -1440 / -1989 -0 / -2424 1387 / 1969 582 / 582 Weight 240 lb 3.2 oz 238 lb 1.588 oz 238 lb 1.588 oz Microbiology Reports for the Last 24 Hours: Microbiology 04/15/21 09:18 Sputum - Expectorated Sputum Gram Stain - Final 04/15/21 09:18 Sputum - Expectorated Sputum Sputum Culture - Preliminary - Constitutional no acute distress - *Routine HEENT Exam Head: Present: normocephalic Eye: Present: EOMI ENT: Present: mucous membranes moist - *Routine Neck Exam Present: trachea midline. Absent: tracheal deviation - *Routine Respiratory Exam Present: crackles. Absent: accessory muscle use - *Routine Cardiovascular Exam Present: RRR - *Routine Abdominal Exam Present: soft, normoactive bowel sounds. Absent: tenderness, firm - *Routine Extremities Exam Present: edema, full ROM, pulses intact. Absent: cyanosis, clubbing - *Routine Skin Exam Present: intact, dry. Absent: cyanosis, erythema - *Routine Neurological Exam Present: alert, oriented X3. Absent: motor deficit - Routine Psychiatric Exam Present: normal affect, normal thought process. Absent: visual hallucinations Assessment and Plan - Assessment and plan all Dx Assessment and Plan for all problems:: Rounded with Dr. Marcum, all orders per Dose: 1. Continue current medical regimen 2. Wean O2 as tolerated 3. Increased pronation 4. [place] 5 every 6 as needed pain
--- NOTE | 2021-04-18 09:21 | PC.NURSE ---
Addendum entered by Rena Dumont RN 04/18/21 09:27: Notified Nursing Staff, Dredge Pumper, and Case Management of visitation exception. Mikey Dumont RN, CNO Original Note: Notified per Case Management of family desire to visit patient. Chart reviewed per myself. Spoke to directly via phone. Notified (Lise) that she could visit patient daily for short interval, no greater than 3 hours. Educated in detail that she must remain at bedside with mask in use. Notified that if patient condition changed or deteriorated, would re-evaluate visitation restrictions. Notified in detail that non-compliance would result in forefiture of visitation exception. Will follow up as needed. Alfred Dumont RN, CNO
--- NOTE | 2021-04-18 09:32 | HMH.PULMPN ---
Internal Medicine - PN: Subj *Date: 04/18/21 *Time: 11:45 Interval history: No acute respiratory events overnight. Patient denies any improvement with symptoms. Exam - Constitutional Constitutional:: Present: no acute distress, comfortable - HENMT Exam HENMT: Present: normocephalic, atraumatic - Eye Exam Eyes:: Present: normal appearance both eyes and related structures - Neck Exam Neck:: Present: normal visual inspection - Respiratory Exam Respiratory:: Present: respiratory distress, rales. Absent: able to speak in complete sentences, wheezing - Cardiovascular Exam Cardiac:: Present: S1, S2 - GI Exam GI:: Present: soft, no hepatosplenomegaly - Skin Exam Skin: Present: warm, no rash - Neurological Exam Neurological: Present: alert, awake, normal cognition - Extremities Exam Extremities: Present: no cyanosis, no clubbing, no edema - Psychiatric Exam Psychiatric: Present: normal affect Assessment and Plan - Assessment and plan all Dx Assessment and Plan for all problems:: #Acute hypoxic respiratory failure #COVID-19 pneumonia: #Pulmonary embolus: 65-year-old male, no significant prior respiratory complaints, no significant smoking history. Not yet vaccinated for COVID-19 pneumonia. Present with worsening fatigue malaise and respiratory distress. CRP elevated at 140. D-dimer at 0.92. CTA showed right lower lobe pulmonary emboli showed bilateral diffuse groundglass opacities along with lower lobe patchy consolidation/atelectasis. Sputum culture less than 10 WBC, gram-positive cocci, yeast and hyphae, yeast ID request place on 04/18/21 Echocardiogram, normal EF with inconclusive diastolic parameters. Interval update: Stable leukocytosis. Renal function stable. No improvement in respiratory status. Remains critical on high O2 requirements. at bedside. Admits compliance with proning protocol. Saturating 89 to 92% while prone on 100% FiO2 Plan: -Continue proning protocol -Continue high flow nasal cannula to maintain O2 saturation goal of 88% -Continue ceftriaxone azithromycin for total of 5 days, blood cultures no growth 48 hours. Follow-up with nasal MRSA PCR -Continue remdesivir, dexamethasone and baricitinib. -Continue Lovenox twice daily for PE -Combivent every 6 as needed. Thank for involving pulmonary in this patient care. We will continue to follow.
--- NOTE | 2021-04-18 11:19 | P.PN_ITS ---
Internal Medicine - PN: Subj *Date: 04/18/21 *Time: 11:19 Exam Vital signs and Labs for Last 24 Hours: Temp Pulse Resp BP Pulse Ox 97.8 F 58 L 40 H 160/80 H 93 L 04/18/21 08:00 04/18/21 06:00 04/18/21 06:00 04/18/21 06:00 04/18/21 06:00 Laboratory Results - last 24 hr 04/18/21 05:34: WBC 12.0 H, RBC 4.89, Hgb 14.8, Hct 44.3, MCV 90.4, MCH 30.3, MCHC 33.5, RDW 13.3, Plt Count 358, MPV 8.9, Neut % (Auto) 91.5 H, Lymph % (Auto) 6.0 L, [place] % (Auto) 2.0, Eos % (Auto) 0.1, Baso % (Auto) 0.4, Neut # (Auto) 11.0 H, Lymph # (Auto) 0.7, [place] # (Auto) 0.2, Eos # (Auto) 0.0, Baso # (Auto) 0.1, Total Counted 100, Neutrophils % (Manual) 91 H, Lymphocytes % (Manual) 6 L, Monocytes % (Manual) 3, Platelet Estimate Normal, RBC Morphology Normal 04/18/21 05:34: Sodium 137, Potassium 3.6, Chloride 105, Carbon Dioxide 23, Anion Gap 12.6, BUN 15 D, Creatinine 0.60 L, Estimated Creat Clear 110, Estimated GFR 134, Est GFR ( Amer) 163, Glucose 178 H D, Calcium 7.8 L, Total Bilirubin 0.8, AST 62 H, ALT 42, Alkaline Phosphatase 85, Total Protein 6.7, Albumin 3.2 L, Globulin 3.5 H, Albumin/Globulin Ratio 0.9 L I & O for Last 24 hours: Intake & Output 04/15/21 04/16/21 04/17/21 04/18/21 23:59 23:59 23:59 23:59 Intake Total 360 / 360 600 / 600 2762 / 3744 1222 / 1222 Output Total 1800 / 2350 2650 / 3025 1375 / 1775 675 / 675 Balance -144 / -2049 / 1387 / 1969 547 / 547 Weight 108.953 kg 108 kg 108 kg Microbiology Reports for the Last 24 Hours: Microbiology 04/15/21 09:18 Sputum - Expectorated Sputum Gram Stain - Final 04/15/21 09:18 Sputum - Expectorated Sputum Sputum Culture - Final Yeast The patient's infection will respond to the chosen ABx?: Yes Is the patient receiving the right drug, dose, and route?: Yes Could a more targeted ABx be ordered?: No
--- NOTE | 2021-04-18 16:35 | PC.NURSE ---
PT IS SITTING UP IN THE CHAIR. ALERT AND ORIENTED X4. EATING AND DRINKING FAIR. 02 SATURATION HAS MAINTAINED 90-95% ON VAPOTHERM 40 L 100% FIO2. PT HAS PRONED OFF AND ON T/O THE SHIFT AND TOLERATED WELL. NOTIFIED CELIO ABOUT PT'S ELEVATED BP (CLONIDINE 0.1 ORDERED). LUNG SOUNDS DIMINISHED WITH BILATERAL CRACKLES. ABDOMEN SOFT/NON TENDER WITH ACTIVE BOWEL SOUNDS. PT STATED HE VOIDED A FEW TIMES WHILE HIS WAS HERE VISITING AND SHE EMPTIED HIS URINAL. WILL CONTINUE TO MONITOR.
[2021-04-19] VITALS (12 sets, daily range): BP systolic 156–182; BP diastolic 63–83; PULSE 50–70; RESP 20–30; TEMP 36.4–36.9; O2SAT 89–98; BMI 31.4
--- NOTE | 2021-04-19 04:34 | PC.NURSE ---
pt has rested well this shift, has remained on vapotherm 40L, 100%, no complaints of SOA or pain this shift, has remained on left side or prone t/o shift, O2 sats 90-97% this shift, using urinal independently
--- NOTE | 2021-04-19 06:00 | XR_ITS ---
PROCEDURE INFORMATION: Exam: XR Chest Exam date and time: 04/19/2021 6:00 AM Age: 65 years old Clinical indication: Condition or disease; Lung condition and disease; Pneumonia; Other: Covid; Additional info: Covid pna TECHNIQUE: Imaging protocol: XR of the chest. Views: 1 view. COMPARISON: CR XR CHEST PORTABLE 04/14/2021 6:54 PM FINDINGS: Lungs: There are increased diffuse ground-glass opacities with consolidation compared to the prior. Pleural spaces: No pleural effusion. No pneumothorax. Heart/Mediastinum: Stable. Bones/joints: Unremarkable. IMPRESSION: Increased bilateral lung opacities and consolidations consistent with diffuse pneumonia.
[2021-04-19 07:29] LABS: Basophils # 0.1 K/mm3 (0-0.2); Basophils % 0.4 % (0.1-2.0); Eosinophils # 0.1 K/mm3 (0.0-0.4); Eosinophils % 0.6 % (0.1-12.0); Hematocrit 44.6 % (42.0-52.0); Hemoglobin 14.6 g/dL (14.1-18.0); Lymphocytes % 8.4 % (10-50); Mean Corpuscular HGB Conc 32.8 g/dL (31.8-35.4); Mean Corpuscular Hemoglobin 30.4 pg (27.0-31.2); Mean Corpuscular Volume 92.9 fl (80-94); Mean Platelet Volume 8.5 fl (7.4-10.4); Monocytes # 0.2 K/mm3 (0.1-1.0); Monocytes % 1.9 % (1.7-9.3); Neutrophils # 10.5 K/mm3 (1.8-7.8); Neutrophils % 88.8 % (37.0-80.0); Platelet Count 397 K/mm3 (142-424); Red Cell Distribution Width 13.3 % (11.5-17.5); White Blood Count 11.9 K/mm3 (4.8-10.8)
[2021-04-19 07:31] LABS: MANUAL DIFFERENTIAL MANUAL DIFFERENTIAL (MANUAL DIFF)
[2021-04-19 07:36] LABS: Alanine Aminotransferase 38 U/L (12-78); Albumin Level 3.1 g/dl (3.5-5.0); Albumin/Globulin Ratio 0.9 (1.1-1.8); Alkaline Phosphatase 89 U/L (38-126); Anion Gap 9.6 mEq/L (5-15); Aspartate Amino Transferase 54 U/L (17-59); Bilirubin,Total 0.6 mg/dl (0.2-1.3); Blood Urea Nitrogen 14 mg/dl (9-20); Calcium 7.7 mg/dl (8.4-10.2); Carbon Dioxide 26 mmol/L (22.0-30.0); Chloride 104 mmol/L (98-107); Creatinine Clearance Estimated 109 mL/min (50-200); Estimated Glomerular Filt Rate 134 ml/min (>60); GFR (African American) 163 ML/MIN (>60); Globulin 3.6 g/dL (1.3-3.2); Glucose 136 mg/dl (74-100); Potassium 3.6 mmoL/L (3.5-5.1); Sodium 136 mmol/L (136-145); Total Protein,Serum 6.7 g/dl (6.3-8.2)
[2021-04-19 08:01] LABS: Lymphocytes % 8 % (10-50); Monocytes % 4 % (2-9); Neutrophils % 86 % (42-76); Platelet Estimate Normal; RBC Morphology Normal; Total Cells Counted 100
--- NOTE | 2021-04-19 09:20 | HMH.PULMPN ---
Internal Medicine - PN: Subj *Date: 04/19/21 *Time: 14:43 Interval history: No acute respiratory events overnight. Patient admits improvement in his status. Exam - Constitutional Constitutional:: Present: no acute distress, comfortable - HENMT Exam HENMT: Present: normocephalic, atraumatic - Eye Exam Eyes:: Present: normal appearance both eyes and related structures - Neck Exam Neck:: Present: normal visual inspection - Respiratory Exam Respiratory:: Present: able to speak in complete sentences, respiratory distress, rales - Cardiovascular Exam Cardiac:: Present: S1, S2 - GI Exam GI:: Present: soft - Skin Exam Skin: Present: warm, no rash - Neurological Exam Neurological: Present: alert, awake, normal cognition - Extremities Exam Extremities: Present: no cyanosis, no clubbing, no edema Assessment and Plan - Assessment and plan all Dx Assessment and Plan for all problems:: #Acute hypoxic respiratory failure #COVID-19 pneumonia: #Pulmonary embolus: 65-year-old male, no significant prior respiratory complaints, no significant smoking history. Not yet vaccinated for COVID-19 pneumonia. Present with worsening fatigue malaise and respiratory distress. CRP elevated at 140. D-dimer at 0.92. CTA showed right lower lobe pulmonary emboli showed bilateral diffuse groundglass opacities along with lower lobe patchy consolidation/atelectasis. Sputum culture less than 10 WBC, gram-positive cocci, yeast and hyphae, yeast ID request place on 04/18/21 Echocardiogram, normal EF with inconclusive diastolic parameters. Interval update: Stable leukocytosis. Renal function stable. Slight improvement in respiratory status. Saturating 95 to 98% on high flow. FiO2 decreased to 90%. We will continue to wean as tolerated. Compliant with proning protocol. Plan: -Continue proning protocol -Continue high flow nasal cannula to maintain O2 saturation goal of 88% -Continue ceftriaxone azithromycin for total of 5 days, blood cultures no growth 48 hours. Follow-up with nasal MRSA PCR -Continue remdesivir, dexamethasone and baricitinib. -Continue Lovenox twice daily for PE -Combivent every 6 as needed. -Hypertension management as per primary team. Thank for involving pulmonary in this patient care. We will continue to follow.
--- NOTE | 2021-04-19 09:56 | HMH.ACPN2 ---
Internal Medicine - PN: Subj *Date: 04/19/21 *Time: 08:50 Interval history: pt sitting up in chair, on vapertherm only, states he did not eat breakfast due to being proned states will eat snack. Exam Vital signs and Labs for Last 24 Hours: Temp Pulse Resp BP Pulse Ox 98 F 53 L 28 H 179/80 H 98 04/19/21 08:00 04/19/21 06:00 04/19/21 06:00 04/19/21 06:00 04/19/21 06:00 Laboratory Results - last 24 hr 04/19/21 06:50: Sodium 136, Potassium 3.6, Chloride 104, Carbon Dioxide 26, Anion Gap 9.6, BUN 14, Creatinine 0.60 L, Estimated Creat Clear 109, Estimated GFR 134, Est GFR ( Amer) 163, Glucose 136 H, Calcium 7.7 L, Total Bilirubin 0.6, AST 54, ALT 38, Alkaline Phosphatase 89, Total Protein 6.7, Albumin 3.1 L, Globulin 3.6 H, Albumin/Globulin Ratio 0.9 L 04/19/21 07:03: WBC 11.9 H, RBC 4.80, Hgb 14.6, Hct 44.6, MCV 92.9, MCH 30.4, MCHC 32.8, RDW 13.3, Plt Count 397, MPV 8.5, Neut % (Auto) 88.8 H, Lymph % (Auto) 8.4 L, [place] % (Auto) 1.9, Eos % (Auto) 0.6, Baso % (Auto) 0.4, Neut # (Auto) 10.5 H, Lymph # (Auto) 1.0, [place] # (Auto) 0.2, Eos # (Auto) 0.1, Baso # (Auto) 0.1, Total Counted 100, Neutrophils % (Manual) 86 H, Band Neutrophils % 2.0, Lymphocytes % (Manual) 8 L, Monocytes % (Manual) 4, Platelet Estimate Normal, RBC Morphology Normal I & O for Last 24 hours: Intake & Output 04/16/21 04/17/21 04/18/21 04/19/21 11:59 11:59 11:59 11:59 Intake Total 120 / 120 2181 / 2181 2403 / 2403 3112 / 3112 Output Total 2450 / 2925 2775 / 2775 975 / 975 1050 / 1050 Balance -2330 / -2805 -594 / -594 1428 / 1428 2062 / 2062 Weight 240 lb 3.2 oz 237 lb 3.2 oz 238 lb 1.588 oz 237 lb 6.582 oz Microbiology Reports for the Last 24 Hours: Microbiology 04/15/21 09:18 Sputum - Expectorated Sputum Gram Stain - Final 04/15/21 09:18 Sputum - Expectorated Sputum Sputum Culture - Final Yeast - Constitutional mild distress - *Routine HEENT Exam Head: Present: normocephalic Eye: Present: PERRL ENT: Present: mucous membranes moist - *Routine Neck Exam Present: supple. Absent: lymphadenopathy - *Routine Respiratory Exam Present: decreased breath sounds, rhonchi - *Routine Cardiovascular Exam Present: RRR - *Routine Abdominal Exam Present: soft, normoactive bowel sounds. Absent: tenderness - *Routine Extremities Exam Absent: cyanosis, clubbing, edema - *Routine Skin Exam Present: warm. Absent: rash - *Routine Neurological Exam Present: alert, oriented X3 Assessment and Plan (1) Pneumonia due to COVID-19 virus Status: Acute Category: Medical Code(s): U07.1 - COVID-19; J12.82 - Pneumonia due to coronavirus disease 2019 (2) Pulmonary embolism Status: Acute Qualifiers: Pulmonary embolism type: single subsegmental (without acute cor pulmonale) Qualified Code(s): I26.93 - Single subsegmental pulmonary embolism without acute cor pulmonale Category: Medical Code(s): I26.99 - Other pulmonary embolism without acute cor pulmonale (3) Respiratory failure with hypoxia Status: Acute Qualifiers: Chronicity: acute Qualified Code(s): J96.01 - Acute respiratory failure with hypoxia Category: Medical Code(s): J96.91 - Respiratory failure, unspecified with hypoxia - Assessment and plan all Dx Assessment and Plan for all problems:: rounded with neus all order per neus pulm consult labs xray
[2021-04-20] VITALS (14 sets, daily range): BP systolic 135–184; BP diastolic 71–85; PULSE 49–94; RESP 17–38; TEMP 36.4–36.8; O2SAT 88–96; BMI 31.5
--- NOTE | 2021-04-20 04:31 | PC.NURSE ---
pt has rested well t/o shift, has remained on vapotherm, is currently on 40l/80%, O2 sats have been 88-90% on this setting, no complaints of SOA, using urinal independently with 2700 mL out so far, has had very few episodes of desat
[2021-04-20 06:44] LABS: Basophils % 0.5 % (0.1-2.0); Eosinophils % 0.1 % (0.1-12.0); Hematocrit 45.4 % (42.0-52.0); Hemoglobin 14.7 g/dL (14.1-18.0); Lymphocytes # 0.5 K/mm3 (0.7-4.5); Lymphocytes % 5.7 % (10-50); Mean Corpuscular HGB Conc 32.4 g/dL (31.8-35.4); Mean Corpuscular Hemoglobin 30.3 pg (27.0-31.2); Mean Corpuscular Volume 93.5 fl (80-94); Mean Platelet Volume 8.8 fl (7.4-10.4); Monocytes # 0.3 K/mm3 (0.1-1.0); Monocytes % 3.4 % (1.7-9.3); Neutrophils # 8.1 K/mm3 (1.8-7.8); Neutrophils % 90.4 % (37.0-80.0); Platelet Count 440 K/mm3 (142-424); Red Blood Count 4.86 M/mm3 (4.60-6.20); Red Cell Distribution Width 13.4 % (11.5-17.5)
[2021-04-20 06:45] LABS: MANUAL DIFFERENTIAL MANUAL DIFFERENTIAL (MANUAL DIFF)
[2021-04-20 06:59] LABS: Lymphocytes % 6 % (10-50); Monocytes % 4 % (2-9); Neutrophils % 86 % (42-76); Platelet Estimate Slight Increase; RBC Morphology Normal; Total Cells Counted 100
[2021-04-20 07:51] LABS: Chloride 107 mmol/L (98-107); Potassium 4.4 mmoL/L (3.5-5.1); Sodium 139 mmol/L (136-145)
[2021-04-20 07:54] LABS: Alanine Aminotransferase 33 U/L (12-78); Albumin Level 2.9 g/dl (3.5-5.0); Albumin/Globulin Ratio 0.8 (1.1-1.8); Alkaline Phosphatase 121 U/L (38-126); Anion Gap 10.4 mEq/L (5-15); Aspartate Amino Transferase 52 U/L (17-59); Bilirubin,Total 0.5 mg/dl (0.2-1.3); Blood Urea Nitrogen 14 mg/dl (9-20); Carbon Dioxide 26 mmol/L (22.0-30.0); Creatinine Clearance Estimated 109 mL/min (50-200); Estimated Glomerular Filt Rate 134 ml/min (>60); GFR (African American) 163 ML/MIN (>60); Globulin 3.8 g/dL (1.3-3.2); Total Protein,Serum 6.7 g/dl (6.3-8.2)
[2021-04-20 07:55] LABS: Calcium 8.2 mg/dl (8.4-10.2); Glucose 187 mg/dl (74-100)
--- NOTE | 2021-04-20 14:06 | HMH.ACPN2 ---
Internal Medicine - PN: Subj *Date: 04/20/21 *Time: 14:11 Interval history: Patient has had a fairly uneventful night. He remains on Vapotherm at 40, saturations 88-94. X-ray shows increased opacities consistent with pneumonia. He remains on Rocephin azithromycin remdesivir dexamethasone and baricitinib. Pulmonary consultation notes are reviewed. His is present in the room at the time of exam, he is alert and bright eyed. Spoke with respiratory therapy she has no new concerns. Exam Vital signs and Labs for Last 24 Hours: Temp Pulse Resp BP Pulse Ox 97.7 F 75 26 H 172/85 H 94 L 04/20/21 04:00 04/20/21 06:00 04/20/21 06:00 04/20/21 06:00 04/20/21 06:00 Laboratory Results - last 24 hr 04/20/21 06:05: WBC 9.0, RBC 4.86, Hgb 14.7, Hct 45.4, MCV 93.5, MCH 30.3, MCHC 32.4, RDW 13.4, Plt Count 440 H, MPV 8.8, Neut % (Auto) 90.4 H, Lymph % (Auto) 5.7 L, [place] % (Auto) 3.4, Eos % (Auto) 0.1, Baso % (Auto) 0.5, Neut # (Auto) 8.1 H, Lymph # (Auto) 0.5 L, [place] # (Auto) 0.3, Eos # (Auto) 0.0, Baso # (Auto) 0.0, Total Counted 100, Neutrophils % (Manual) 86 H, Band Neutrophils % 4.0, Lymphocytes % (Manual) 6 L, Monocytes % (Manual) 4, Platelet Estimate Slight increase, RBC Morphology Normal 04/20/21 06:05: Sodium 139, Potassium 4.4 D, Chloride 107, Carbon Dioxide 26, Anion Gap 10.4, BUN 14, Creatinine 0.60 L, Estimated Creat Clear 109, Estimated GFR 134, Est GFR ( Amer) 163, Glucose 187 H D, Calcium 8.2 L, Total Bilirubin 0.5, AST 52, ALT 33, Alkaline Phosphatase 121, Total Protein 6.7, Albumin 2.9 L, Globulin 3.8 H, Albumin/Globulin Ratio 0.8 L I & O for Last 24 hours: Intake & Output 04/17/21 04/18/21 04/19/21 04/20/21 23:59 23:59 23:59 23:59 Intake Total 2762 / 3744 3001 / 3001 1573 / 1573 1564 / 1564 Output Total 1375 / 1775 1175 / 1425 2250 / 2250 1400 / 1400 Balance 1387 / 1969 1826 / 1576 -677 / -677 164 / 164 Weight 238 lb 1.588 oz 238 lb 1.588 oz 237 lb 6.582 oz 238 lb Microbiology Reports for the Last 24 Hours: Microbiology 04/14/21 18:52 Blood Blood Culture - Final NO GROWTH AFTER 5 DAYS 04/14/21 18:52 Blood Blood Culture - Final NO GROWTH AFTER 5 DAYS 04/15/21 09:18 Sputum - Expectorated Sputum - Final Not Reportable 04/15/21 09:18 Sputum - Expectorated Sputum Gram Stain - Final 04/15/21 09:18 Sputum - Expectorated Sputum Sputum Culture - Final Yeast 04/17/21 13:39 Nose - Nasal MRSA Culture - Final Negative - Constitutional no acute distress, disheveled, cooperative - *Routine HEENT Exam Head: Present: normocephalic Eye: Present: EOMI, PERRL ENT: Present: mucous membranes moist - *Routine Neck Exam Present: supple. Absent: lymphadenopathy - *Routine Respiratory Exam Present: crackles. Absent: accessory muscle use, wheezes - *Routine Cardiovascular Exam Present: RRR - *Routine Abdominal Exam Present: soft, normoactive bowel sounds. Absent: tenderness - *Routine Extremities Exam Absent: cyanosis, clubbing, edema - *Routine Skin Exam Present: warm. Absent: rash - *Routine Neurological Exam Present: alert, oriented X3, vision grossly intact. Absent: hearing grossly intact Assessment and Plan (1) Pneumonia due to COVID-19 virus Status: Acute Category: Medical Code(s): U07.1 - COVID-19; J12.82 - Pneumonia due to coronavirus disease 2019 (2) Respiratory failure with hypoxia Status: Acute Qualifiers: Chronicity: acute Qualified Code(s): J96.01 - Acute respiratory failure with hypoxia Category: Medical Code(s): J96.91 - Respiratory failure, unspecified with hypoxia (3) Pulmonary embolism Status: Acute Qualifiers: Pulmonary embolism type: single subsegmental (without acute cor pulmonale) Qualified Code(s): I26.93 - Single subsegmental pulmonary embolism without acute cor pul
--- NOTE | 2021-04-20 18:33 | PC.NURSE ---
Pt has been stable this shift. Pt has been up to the chair majority of the day, but if pt is in bed he is lying prone. Pt remains 40L/100% on vapotherm. No other acute changes.
[2021-04-21] VITALS (14 sets, daily range): BP systolic 153–191; BP diastolic 68–90; PULSE 53–80; RESP 22–40; TEMP 36.6–36.7; O2SAT 86–98; BMI 31.5; BMI 31.4
[2021-04-21 06:36] LABS: Basophils % 0.3 % (0.1-2.0); Eosinophils # 0.1 K/mm3 (0.0-0.4); Eosinophils % 0.6 % (0.1-12.0); Hematocrit 48.7 % (42.0-52.0); Lymphocytes # 0.7 K/mm3 (0.7-4.5); Lymphocytes % 5.5 % (10-50); Mean Corpuscular HGB Conc 32.8 g/dL (31.8-35.4); Mean Corpuscular Hemoglobin 30.4 pg (27.0-31.2); Mean Corpuscular Volume 92.6 fl (80-94); Mean Platelet Volume 8.9 fl (7.4-10.4); Monocytes # 0.3 K/mm3 (0.1-1.0); Monocytes % 2.1 % (1.7-9.3); Neutrophils # 11.3 K/mm3 (1.8-7.8); Neutrophils % 91.5 % (37.0-80.0); Platelet Count 517 K/mm3 (142-424); Red Blood Count 5.26 M/mm3 (4.60-6.20); Red Cell Distribution Width 13.3 % (11.5-17.5); White Blood Count 12.3 K/mm3 (4.8-10.8)
[2021-04-21 06:42] LABS: MANUAL DIFFERENTIAL MANUAL DIFFERENTIAL (MANUAL DIFF)
[2021-04-21 07:01] LABS: Lymphocytes % 5 % (10-50); Monocytes % 4 % (2-9); Neutrophils % 86 % (42-76); Platelet Estimate Slight Increase; RBC Morphology Normal; Total Cells Counted 100
[2021-04-21 07:11] LABS: Alanine Aminotransferase 47 U/L (12-78); Albumin Level 3.5 g/dl (3.5-5.0); Albumin/Globulin Ratio 0.8 (1.1-1.8); Alkaline Phosphatase 169 U/L (38-126); Anion Gap 11.9 mEq/L (5-15); Aspartate Amino Transferase 56 U/L (17-59); Bilirubin,Total 0.6 mg/dl (0.2-1.3); Blood Urea Nitrogen 14 mg/dl (9-20); Calcium 8.7 mg/dl (8.4-10.2); Carbon Dioxide 30 mmol/L (22.0-30.0); Chloride 101 mmol/L (98-107); Creatinine Clearance Estimated 109 mL/min (50-200); Estimated Glomerular Filt Rate 112 ml/min (>60); GFR (African American) 136 ML/MIN (>60); Globulin 4.3 g/dL (1.3-3.2); Glucose 187 mg/dl (74-100); Potassium 3.9 mmoL/L (3.5-5.1); Sodium 139 mmol/L (136-145); Total Protein,Serum 7.8 g/dl (6.3-8.2)
--- NOTE | 2021-04-21 13:45 | HMH.ACPN2 ---
Internal Medicine - PN: Subj *Date: 04/21/21 *Time: 13:45 Interval history: Nursing staff reports that patient has been stable overnight. Saturations have ranged between 86 and 93%. He is on Vapotherm at 40 with a nonrebreather. The nonrebreather is often not in place. Patient is hard of hearing voices no new complaints. His is present at the time of exam Exam Vital signs and Labs for Last 24 Hours: Temp Pulse Resp BP Pulse Ox 98.1 F 73 22 153/86 H 93 L 04/21/21 12:00 04/21/21 12:00 04/21/21 12:00 04/21/21 12:00 04/21/21 12:00 Laboratory Results - last 24 hr 04/21/21 05:43: WBC 12.3 H D, RBC 5.26, Hgb 16.0, Hct 48.7, MCV 92.6, MCH 30.4, MCHC 32.8, RDW 13.3, Plt Count 517 H, MPV 8.9, Neut % (Auto) 91.5 H, Lymph % (Auto) 5.5 L, [place] % (Auto) 2.1, Eos % (Auto) 0.6, Baso % (Auto) 0.3, Neut # (Auto) 11.3 H, Lymph # (Auto) 0.7, [place] # (Auto) 0.3, Eos # (Auto) 0.1, Baso # (Auto) 0.0, Total Counted 100, Neutrophils % (Manual) 86 H, Band Neutrophils % 5.0, Lymphocytes % (Manual) 5 L, Monocytes % (Manual) 4, Platelet Estimate Slight increase, RBC Morphology Normal 04/21/21 05:43: Sodium 139, Potassium 3.9, Chloride 101, Carbon Dioxide 30, Anion Gap 11.9, BUN 14, Creatinine 0.70, Estimated Creat Clear 109, Estimated GFR 112, Est GFR ( Amer) 136, Glucose 187 H, Calcium 8.7, Total Bilirubin 0.6, AST 56, ALT 47 D, Alkaline Phosphatase 169 H, Total Protein 7.8, Albumin 3.5 D, Globulin 4.3 H, Albumin/Globulin Ratio 0.8 L I & O for Last 24 hours: Intake & Output 04/18/21 04/19/21 04/20/21 04/21/21 23:59 23:59 23:59 23:59 Intake Total 3001 / 3001 1573 / 1573 2164 / 2925 761 / 761 Output Total 1175 / 1425 2250 / 2250 1400 / 1900 500 / 500 Balance 1826 / 1576 -677 / -677 764 / 1025 261 / 261 Weight 238 lb 1.588 oz 237 lb 6.582 oz 238 lb 237 lb 9.6 oz - Constitutional no acute distress, cooperative - *Routine HEENT Exam Head: Present: normocephalic Eye: Present: EOMI, PERRL ENT: Present: mucous membranes moist - *Routine Neck Exam Present: supple. Absent: lymphadenopathy - *Routine Respiratory Exam Present: crackles. Absent: accessory muscle use, respiratory distress, wheezes - *Routine Cardiovascular Exam Present: RRR - *Routine Abdominal Exam Present: soft, normoactive bowel sounds. Absent: tenderness - *Routine Extremities Exam Absent: cyanosis, clubbing, edema - *Routine Skin Exam Present: warm. Absent: rash - *Routine Neurological Exam Present: alert, oriented X3, vision grossly intact. Absent: hearing grossly intact Assessment and Plan (1) Pneumonia due to COVID-19 virus Status: Acute Category: Medical Code(s): U07.1 - COVID-19; J12.82 - Pneumonia due to coronavirus disease 2019 (2) Respiratory failure with hypoxia Status: Acute Qualifiers: Chronicity: acute Qualified Code(s): J96.01 - Acute respiratory failure with hypoxia Category: Medical Code(s): J96.91 - Respiratory failure, unspecified with hypoxia (3) Pulmonary embolism Status: Acute Qualifiers: Pulmonary embolism type: single subsegmental (without acute cor pulmonale) Qualified Code(s): I26.93 - Single subsegmental pulmonary embolism without acute cor pulmonale Category: Medical Code(s): I26.99 - Other pulmonary embolism without acute cor pulmonale - Assessment and plan all Dx Assessment and Plan for all problems:: We will continue current course. Following with the pulmonary service. Urged the patient to keep Therm and nonrebreather in place, up in the chair and mobilize.
--- NOTE | 2021-04-21 14:23 | PC.NURSE ---
Spoke to transfer center, no beds available at this time
--- NOTE | 2021-04-21 18:27 | PC.NURSE ---
Pt has rested majority of this shift. Pt has required NRB on top of vapotherm for the greater part of the shift. Pt states that he feels the best (he) has felt since admission . Pt has remained side-lying or prone majority of the shift. Active bowel sounds in all 4 quads, no BM noted. IV remains patent and is infusing NS @ 100mL/hr. All other VSS. No other acute changes or complaints, will continue to monitor.
[2021-04-22] VITALS (15 sets, daily range): BP systolic 132–202; BP diastolic 58–92; PULSE 60–90; RESP 26–38; TEMP 36.6–37.6; O2SAT 89–96; BMI 31.1
--- NOTE | 2021-04-22 03:17 | PC.NURSE ---
dr moreno called at 225am for pt b/p noted to be elevated at 2400 197/96 with recheck 187/90, b/p now 198/96 with manual check of 202/80, order for clonidine 0.1mg po given x1 dose. will continue to monitor.
[2021-04-22 05:42] LABS: Basophils # 0.1 K/mm3 (0-0.2); Basophils % 0.6 % (0.1-2.0); Eosinophils # 0.1 K/mm3 (0.0-0.4); Eosinophils % 0.8 % (0.1-12.0); Hematocrit 48.1 % (42.0-52.0); Hemoglobin 15.3 g/dL (14.1-18.0); Lymphocytes # 0.5 K/mm3 (0.7-4.5); Lymphocytes % 3.4 % (10-50); Mean Corpuscular HGB Conc 31.8 g/dL (31.8-35.4); Mean Corpuscular Hemoglobin 29.7 pg (27.0-31.2); Mean Corpuscular Volume 93.3 fl (80-94); Mean Platelet Volume 8.8 fl (7.4-10.4); Monocytes # 0.6 K/mm3 (0.1-1.0); Neutrophils # 12.9 K/mm3 (1.8-7.8); Neutrophils % 91.1 % (37.0-80.0); Platelet Count 448 K/mm3 (142-424); Red Blood Count 5.16 M/mm3 (4.60-6.20); Red Cell Distribution Width 13.4 % (11.5-17.5); White Blood Count 14.1 K/mm3 (4.8-10.8)
[2021-04-22 05:43] LABS: MANUAL DIFFERENTIAL MANUAL DIFFERENTIAL (MANUAL DIFF)
[2021-04-22 05:52] LABS: Alanine Aminotransferase 37 U/L (12-78); Albumin Level 3.2 g/dl (3.5-5.0); Albumin/Globulin Ratio 0.8 (1.1-1.8); Alkaline Phosphatase 171 U/L (38-126); Anion Gap 7.9 mEq/L (5-15); Aspartate Amino Transferase 49 U/L (17-59); Bilirubin,Total 0.7 mg/dl (0.2-1.3); Blood Urea Nitrogen 11 mg/dl (9-20); Calcium 7.9 mg/dl (8.4-10.2); Carbon Dioxide 30 mmol/L (22.0-30.0); Chloride 100 mmol/L (98-107); Creatinine Clearance Estimated 108 mL/min (50-200); Estimated Glomerular Filt Rate 112 ml/min (>60); GFR (African American) 136 ML/MIN (>60); Globulin 3.9 g/dL (1.3-3.2); Glucose 158 mg/dl (74-100); Potassium 3.9 mmoL/L (3.5-5.1); Sodium 134 mmol/L (136-145); Total Protein,Serum 7.1 g/dl (6.3-8.2)
[2021-04-22 05:59] LABS: Hypochromasia 1+; Lymphocytes % 5 % (10-50); Neutrophils % 85 % (42-76); Platelet Estimate Slight Increase; Total Cells Counted 100
--- NOTE | 2021-04-22 06:00 | XR_ITS ---
FINAL REPORT CLINICAL HISTORY: covid COMPARISON: April 19, 2021 FINDINGS: The heart size is normal. The mediastinum is normal. There are persistent bilateral pulmonary opacities consistent with bilateral pneumonia with slight improvement in the aeration. There are no pleural effusions. There is no pneumothorax. There is no osseous abnormality. IMPRESSION: Bilateral pneumonia with slight improved aeration. Reviewed, Interpreted and Dictated by Damian Valdovinos III, MD Transcribed by Rosalio Muñoz Authenticated by Damian Valdovinos III, MD on 04/22/2021 07:24:48 AM [facility]
--- NOTE | 2021-04-22 09:40 | P.PN_ITS ---
Internal Medicine - PN: Subj *Date: 04/22/21 *Time: 13:58 Interval history: No acute respiratory events over the weekend. Denies any worsening respiratory symptoms Exam - Constitutional Constitutional:: Present: no acute distress, comfortable - HENMT Exam HENMT: Present: normocephalic, atraumatic - Eye Exam Eyes:: Present: normal appearance both eyes and related structures - Neck Exam Neck:: Present: normal visual inspection - Respiratory Exam Respiratory:: Present: able to speak in complete sentences, respiratory distress, rales. Absent: accessory muscle use, wheezing - Cardiovascular Exam Cardiac:: Present: S1, S2 - GI Exam GI:: Present: soft, no hepatosplenomegaly - Skin Exam Skin: Present: warm - Neurological Exam Neurological: Present: alert, awake, normal cognition - Extremities Exam Extremities: Present: no cyanosis, no clubbing, edema - Psychiatric Exam Psychiatric: Present: normal affect Assessment and Plan (1) Pneumonia due to COVID-19 virus Status: Acute Category: Medical Code(s): U07.1 - COVID-19; J12.82 - Pneumonia due to coronavirus disease 2019 (2) Respiratory failure with hypoxia Status: Acute Qualifiers: Chronicity: acute Qualified Code(s): J96.01 - Acute respiratory failure with hypoxia Category: Medical Code(s): J96.91 - Respiratory failure, unspecified with hypoxia (3) Pulmonary embolism Status: Acute Qualifiers: Pulmonary embolism type: single subsegmental (without acute cor pulmonale) Qualified Code(s): I26.93 - Single subsegmental pulmonary embolism without acute cor pulmonale Category: Medical Code(s): I26.99 - Other pulmonary embolism without acute cor pulmonale - Assessment and plan all Dx Assessment and Plan for all problems:: #Acute hypoxic respiratory failure #COVID-19 pneumonia: #Pulmonary embolus: 65-year-old male, no significant prior respiratory complaints, no significant smoking history. Not yet vaccinated for COVID-19 pneumonia. Present with worsening fatigue malaise and respiratory distress. CRP elevated at 140. D-dimer at 0.92. CTA showed right lower lobe pulmonary emboli showed bilateral diffuse groundglass opacities along with lower lobe patchy consolidation/atelectasis. Sputum culture less than 10 WBC, gram-positive cocci, yeast and hyphae, yeast ID request place on 04/18/21 Echocardiogram, normal EF with inconclusive diastolic parameters. Interval update: Slight worsening leukocytosis. Renal function stable. Chest x-ray relatively stable with slight improvement. Patient denies any worsening respiratory symptoms however patient's oxygen saturations worsen from Thursday, he currently needing high flow nasal cannula along with nonrebreather to maintain his saturations at 90% and above. His clinical status remain critical with guarded prognosis, will closely watch his clinical status. Plan: - Lasix 40mg IV once -Continue proning protocol -Continue high flow nasal cannula to maintain O2 saturation goal of 88% -He is on day 7 for ceftriaxone (will discontinue after 7 days). Completed 5- day course of azithromycin. Sputum cultures no growth along with blood cultures. Nasal MRSA PCR negative. -Continue remdesivirx 10 days , dexamethasonex 10 days and [id number] days -Continue Lovenox twice daily for PE -Combivent every 6 as needed. -Hypertension management as per primary team. Thank for involving pulmonary in this patient care. We will continue to follow.
--- NOTE | 2021-04-22 09:43 | HMH.ACPN2 ---
Internal Medicine - PN: Subj *Date: 04/22/21 *Time: 09:15 Interval history: pt states he is feeling better Exam Vital signs and Labs for Last 24 Hours: Temp Pulse Resp BP Pulse Ox 98.6 F 90 30 H 178/92 H 89 L 04/22/21 08:00 04/22/21 08:00 04/22/21 08:00 04/22/21 08:00 04/22/21 08:00 Laboratory Results - last 24 hr 04/22/21 05:25: WBC 14.1 H, RBC 5.16, Hgb 15.3, Hct 48.1, MCV 93.3, MCH 29.7, MCHC 31.8, RDW 13.4, Plt Count 448 H, MPV 8.8, Neut % (Auto) 91.1 H, Lymph % (Auto) 3.4 L, [place] % (Auto) 4.0, Eos % (Auto) 0.8, Baso % (Auto) 0.6, Neut # (Auto) 12.9 H, Lymph # (Auto) 0.5 L, [place] # (Auto) 0.6, Eos # (Auto) 0.1, Baso # (Auto) 0.1, Total Counted 100, Neutrophils % (Manual) 85 H, Band Neutrophils % 10.0 H, Lymphocytes % (Manual) 5 L, Platelet Estimate Slight increase, Hypochromasia 1+ 04/22/21 05:25: Sodium 134 L, Potassium 3.9, Chloride 100, Carbon Dioxide 30, Anion Gap 7.9, BUN 11, Creatinine 0.70, Estimated Creat Clear 108, Estimated GFR 112, Est GFR ( Amer) 136, Glucose 158 H, Calcium 7.9 L, Total Bilirubin 0.7, AST 49, ALT 37, Alkaline Phosphatase 171 H, Total Protein 7.1, Albumin 3.2 L, Globulin 3.9 H, Albumin/Globulin Ratio 0.8 L I & O for Last 24 hours: Intake & Output 04/19/21 04/20/21 04/21/21 04/22/21 11:59 11:59 11:59 11:59 Intake Total 3112 / 3112 1804 / 1804 1361 / 1361 2505 / 2505 Output Total 1450 / 1450 2700 / 2700 500 / 500 600 / 600 Balance 1662 / 1662 -896 / -896 861 / 861 1905 / 1905 Weight 237 lb 6.582 oz 238 lb 237 lb 9.6 oz 235 lb 8 oz - Constitutional no acute distress - *Routine HEENT Exam Head: Present: normocephalic Eye: Present: PERRL ENT: Present: mucous membranes moist - *Routine Neck Exam Present: supple. Absent: lymphadenopathy - *Routine Respiratory Exam Present: decreased breath sounds, rhonchi - *Routine Cardiovascular Exam Present: RRR - *Routine Abdominal Exam Present: soft, normoactive bowel sounds. Absent: tenderness - *Routine Extremities Exam Absent: cyanosis, clubbing, edema - *Routine Skin Exam Present: warm. Absent: rash - *Routine Neurological Exam Present: alert, oriented X3 Assessment and Plan (1) Pneumonia due to COVID-19 virus Status: Acute Category: Medical Code(s): U07.1 - COVID-19; J12.82 - Pneumonia due to coronavirus disease 2019 (2) Respiratory failure with hypoxia Status: Acute Qualifiers: Chronicity: acute Qualified Code(s): J96.01 - Acute respiratory failure with hypoxia Category: Medical Code(s): J96.91 - Respiratory failure, unspecified with hypoxia (3) Pulmonary embolism Status: Acute Qualifiers: Pulmonary embolism type: single subsegmental (without acute cor pulmonale) Qualified Code(s): I26.93 - Single subsegmental pulmonary embolism without acute cor pulmonale Category: Medical Code(s): I26.99 - Other pulmonary embolism without acute cor pulmonale - Assessment and plan all Dx Assessment and Plan for all problems:: rounded with dr lynch all orders per dr lynch continue all care follow with pulm
--- NOTE | 2021-04-22 10:58 | HMH.PTEV ---
Physical Therapy Evaluation Rehab PT IP Evaluation Start: 04/21/21 13:52 Freq: ONCE Status: Active Protocol: Document 04/22/21 10:51 MAKSIM (Rec: 04/22/21 10:58 MAKSIM [id number]) Subjective/History History History Patient is a 65 year old male admitted to [facility] 04/15/21 secondary to shortness of breath. Diagnosed with COVID pneumonia. Patient previously lived at home with his . Fully independent with transfers and ambulation. Patient did not previously require eric AD's prior to admittance. Subjective Subjective I feel alright. I just get real short of breath still. Rehab PT IP Eval Objective Appearance Patient Behavior Appropriate,Cooperative Patient Orientation Person,Place,Birthday Difficulty following instructions none Speech Pattern Clear,Appropriate Ambulation Patient Able to Ambulate Yes Ambulation Observation Ambulation Distance (feet) 5 Ambulation Assistive Device None Ambulation Ability Contact Guard/Hand Hold Balance Ability to Arise Able, uses arms to help Sitting Balance Steady, safe Standing Balance Steady, wide stance Dynamic Sitting Balance Ability Normal Dynamic Standing Balance Ability Normal Transfers Bed Transfer Ability Independent Chair Transfer Ability Independent Sit to Stand Bed Transfer Ability Independent ROM All Extremities PT ROM Status WFL MMT All Extremities PT MMT WFL Rehab PT IP prob,goals,plan Problems Date of Evaluation: 04/22/20 PT IP Problems Gait,Balance,Self care,Safety Rehab Potential Rehab Potential Fair Equipment Needs Assistive Devices None / NA Plan PT Intervention Plan Gait,Balance,Self care,Safety, Therapeutic Exercise PT Plan Frequency BID Duration LOS Discharge Goals Bed Transfer Ability Independent Sit to Stand Chair Transfer Ability Independent Ambulation Assistive Device None Ambulation Distance (feet) 20 Discharge Plan PT Discharge Plan PT to see patient BID LOS to improve standing/ambulatory endurance. Patient to discharge home with once MD deems medically stable. Anjel
--- NOTE | 2021-04-22 19:05 | PC.NURSE ---
0.1 mg po clonidine given at 1900. Verified with Kylah Vogel RN
--- NOTE | 2021-04-22 19:20 | PC.NURSE ---
Have also requested swish and swallow for pt, as he appears to have bharat on tongue. Awaiting response at this time. Will make primary RN cheo aware.
[2021-04-23] VITALS (21 sets, daily range): BP systolic 119–190; BP diastolic 51–94; PULSE 70–130; RESP 24–36; TEMP 36.5–37.3; O2SAT 87–99; BMI 30.8
[2021-04-23 06:15] LABS: Basophils # 0.1 K/mm3 (0-0.2); Basophils % 0.4 % (0.1-2.0); Eosinophils # 0.1 K/mm3 (0.0-0.4); Eosinophils % 0.2 % (0.1-12.0); Hematocrit 48.2 % (42.0-52.0); Hemoglobin 15.8 g/dL (14.1-18.0); Lymphocytes # 0.5 K/mm3 (0.7-4.5); Lymphocytes % 2.4 % (10-50); Mean Corpuscular HGB Conc 32.8 g/dL (31.8-35.4); Mean Corpuscular Hemoglobin 30.8 pg (27.0-31.2); Mean Platelet Volume 9.1 fl (7.4-10.4); Monocytes # 0.4 K/mm3 (0.1-1.0); Monocytes % 2.1 % (1.7-9.3); Neutrophils # 18.8 K/mm3 (1.8-7.8); Neutrophils % 94.8 % (37.0-80.0); Platelet Count 446 K/mm3 (142-424); Red Blood Count 5.13 M/mm3 (4.60-6.20); Red Cell Distribution Width 13.7 % (11.5-17.5); White Blood Count 19.8 K/mm3 (4.8-10.8)
--- NOTE | 2021-04-23 06:17 | PC.NURSE ---
pt has been prone or on side t/o shift, vaportherm 40L, 100% with non rebreather, does desat with any exertion, drops to high 70's, O2 while resting is 89-93%, takes several minutes for recovery, has been using urinal independently with 1400 mL out so far this shift, HR has remained 62-82
[2021-04-23 06:24] LABS: Alanine Aminotransferase 36 U/L (12-78); Albumin Level 3.4 g/dl (3.5-5.0); Albumin/Globulin Ratio 0.8 (1.1-1.8); Alkaline Phosphatase 231 U/L (38-126); Anion Gap 12.9 mEq/L (5-15); Aspartate Amino Transferase 54 U/L (17-59); Bilirubin,Total 0.9 mg/dl (0.2-1.3); Blood Urea Nitrogen 13 mg/dl (9-20); Calcium 8.4 mg/dl (8.4-10.2); Carbon Dioxide 30 mmol/L (22.0-30.0); Chloride 95 mmol/L (98-107); Creatinine Clearance Estimated 107 mL/min (50-200); Estimated Glomerular Filt Rate 134 ml/min (>60); GFR (African American) 163 ML/MIN (>60); Globulin 4.2 g/dL (1.3-3.2); Glucose 166 mg/dl (74-100); Potassium 3.9 mmoL/L (3.5-5.1); Sodium 134 mmol/L (136-145); Total Protein,Serum 7.6 g/dl (6.3-8.2)
[2021-04-23 06:37] LABS: MANUAL DIFFERENTIAL MANUAL DIFFERENTIAL (MANUAL DIFF)
--- NOTE | 2021-04-23 08:33 | HMH.ACPN2 ---
Internal Medicine - PN: Subj *Date: 04/23/21 *Time: 08:58 Interval history: 65-year-old male patient lying in bed resting quietly awakens to verbal stimuli. Current oxygenation 90% on 40 L per Vapotherm and nonrebreather. He reports he is pronating and using I-S per instruction, encouraged to pronate more often. Exam Vital signs and Labs for Last 24 Hours: Temp Pulse Resp BP Pulse Ox 99.2 F 82 26 H 139/82 90 L 04/23/21 04:00 04/23/21 06:00 04/23/21 06:00 04/23/21 06:00 04/23/21 06:00 Laboratory Results - last 24 hr 04/23/21 05:10: WBC 19.8 H D, RBC 5.13, Hgb 15.8, Hct 48.2, MCV 94.0, MCH 30.8, MCHC 32.8, RDW 13.7, Plt Count 446 H, MPV 9.1, Neut % (Auto) 94.8 H, Lymph % (Auto) 2.4 L, [place] % (Auto) 2.1, Eos % (Auto) 0.2, Baso % (Auto) 0.4, Neut # (Auto) 18.8 H, Lymph # (Auto) 0.5 L, [place] # (Auto) 0.4, Eos # (Auto) 0.1, Baso # (Auto) 0.1 04/23/21 05:10: Sodium 134 L, Potassium 3.9, Chloride 95 L, Carbon Dioxide 30, Anion Gap 12.9, BUN 13, Creatinine 0.60 L, Estimated Creat Clear 107, Estimated GFR 134, Est GFR ( Amer) 163, Glucose 166 H, Calcium 8.4, Total Bilirubin 0.9, AST 54, ALT 36, Alkaline Phosphatase 231 H, Total Protein 7.6, Albumin 3.4 L, Globulin 4.2 H, Albumin/Globulin Ratio 0.8 L I & O for Last 24 hours: Intake & Output 04/20/21 04/21/21 04/22/21 04/23/21 23:59 23:59 23:59 23:59 Intake Total 2164 / 2925 2417 / 2417 1509 / 1509 290 / 290 Output Total 1400 / 1900 500 / 500 1500 / 2500 1400 / 1400 Balance 764 / 1025 1917 / 1917 9 / -991 -1110 / -1110 Weight 238 lb 237 lb 9.6 oz 235 lb 8 oz 232 lb 7 oz - Constitutional no acute distress - *Routine HEENT Exam Head: Present: normocephalic Eye: Present: EOMI ENT: Present: mucous membranes moist - *Routine Neck Exam Present: trachea midline. Absent: tracheal deviation - *Routine Respiratory Exam Present: crackles. Absent: accessory muscle use - *Routine Cardiovascular Exam Present: RRR - *Routine Abdominal Exam Present: soft, normoactive bowel sounds. Absent: tenderness, firm - *Routine Extremities Exam Present: full ROM, pulses intact. Absent: cyanosis, clubbing, edema - *Routine Skin Exam Present: intact, dry. Absent: cyanosis, erythema - *Routine Neurological Exam Present: alert, oriented X3. Absent: motor deficit, altered mental status - Routine Psychiatric Exam Present: normal affect, normal thought process. Absent: visual hallucinations Assessment and Plan (1) Pneumonia due to COVID-19 virus Status: Acute Category: Medical Code(s): U07.1 - COVID-19; J12.82 - Pneumonia due to coronavirus disease 2019 (2) Respiratory failure with hypoxia Status: Acute Qualifiers: Chronicity: acute Qualified Code(s): J96.01 - Acute respiratory failure with hypoxia Category: Medical Code(s): J96.91 - Respiratory failure, unspecified with hypoxia (3) Pulmonary embolism Status: Acute Qualifiers: Pulmonary embolism type: single subsegmental (without acute cor pulmonale) Qualified Code(s): I26.93 - Single subsegmental pulmonary embolism without acute cor pulmonale Category: Medical Code(s): I26.99 - Other pulmonary embolism without acute cor pulmonale - Assessment and plan all Dx Assessment and Plan for all problems:: Rounded with Dr. Recio, all orders per Dr. Recio: 1. Continue current medical regimen 2. Wean O2 as tolerated 3. Pulmonology following
[2021-04-23 08:40] LABS: Lymphocytes % 5 % (10-50); Monocytes % 1 % (2-9); Neutrophils % 89 % (42-76); Total Cells Counted 100
[2021-04-23 08:41] LABS: Platelet Estimate Slight Increase; RBC Morphology Normal
--- NOTE | 2021-04-23 09:31 | HMH.PULMPN ---
Internal Medicine - PN: Subj *Date: 04/23/21 *Time: 11:30 Interval history: Worsening respiratory distress. Patient admits worsening respiratory symptoms Exam - Constitutional Constitutional:: Absent: no acute distress, comfortable - HENMT Exam HENMT: Present: normocephalic - Eye Exam Eyes:: Present: normal appearance both eyes and related structures - Neck Exam Neck:: Present: normal visual inspection - Respiratory Exam Respiratory:: Present: respiratory distress, rales. Absent: able to speak in complete sentences, wheezing - Cardiovascular Exam Cardiac:: Present: S1, S2 - GI Exam GI:: Present: soft - Skin Exam Skin: Present: warm, no rash - Neurological Exam Neurological: Present: alert, awake, normal cognition - Extremities Exam Extremities: Present: no cyanosis, no clubbing, no edema Assessment and Plan (1) Pneumonia due to COVID-19 virus Status: Acute Category: Medical Code(s): U07.1 - COVID-19; J12.82 - Pneumonia due to coronavirus disease 2019 (2) Respiratory failure with hypoxia Status: Acute Qualifiers: Chronicity: acute Qualified Code(s): J96.01 - Acute respiratory failure with hypoxia Category: Medical Code(s): J96.91 - Respiratory failure, unspecified with hypoxia (3) Pulmonary embolism Status: Acute Qualifiers: Pulmonary embolism type: single subsegmental (without acute cor pulmonale) Qualified Code(s): I26.93 - Single subsegmental pulmonary embolism without acute cor pulmonale Category: Medical Code(s): I26.99 - Other pulmonary embolism without acute cor pulmonale - Assessment and plan all Dx Assessment and Plan for all problems:: #Acute hypoxic respiratory failure #COVID-19 pneumonia: #Pulmonary embolus: 65-year-old male, no significant prior respiratory complaints, no significant smoking history. Not yet vaccinated for COVID-19 pneumonia. Present with worsening fatigue malaise and respiratory distress. CRP elevated at 140. D-dimer at 0.92. CTA showed right lower lobe pulmonary emboli showed bilateral diffuse groundglass opacities along with lower lobe patchy consolidation/atelectasis. Sputum culture less than 10 WBC, gram-positive cocci, yeast and hyphae, yeast ID request place on 04/18/21 Echocardiogram, normal EF with inconclusive diastolic parameters. Interval update: Received 40 IV Lasix yesterday. Lower extremity edema improved. Respiratory status continued to worsen patient barely saturating 88% on high flow & nonrebreather. Appeared to be tachypneic. Blood gas showed worsening hypoxic respiratory failure. Given his worsening respiratory status and impending respiratory failure the plan was made to proceed with intubation and mechanical ventilatory support. Discussed with the patient and the patient's . Low-grade febrile episodes. Worsening leukocytosis. Completed 7 days of ceftriaxone and 5 days of azithromycin. Sputum cultures no growth along with blood cultures. Nasal MRSA PCR negative. Plan: -Continue proning protocol -Intubation and mechanical ventilatory support -Continue remdesivirx 10 days , dexamethasonex 10 days and [id number] days -Continue Lovenox twice daily for PE -Combivent every 6 as needed. -Hypertension management as per primary team. Thank for involving pulmonary in this patient care. We will continue to follow.
--- NOTE | 2021-04-23 09:32 | XR_ITS ---
FINAL REPORT CLINICAL HISTORY: hypxoia COMPARISON: April 22, 2021 FINDINGS: The heart size is normal. The mediastinum is normal. There are persistent, diffuse bilateral pulmonary opacities consistent with bilateral pneumonia. There are no pleural effusions. There is no pneumothorax. There is no osseous abnormality. IMPRESSION: Persistent bilateral pneumonia, stable. Reviewed, Interpreted and Dictated by Damian Valdovinos III, MD Transcribed by Rosalio Muñoz Authenticated by Damian Valdovinos III, MD on 04/23/2021 11:29:12 AM [facility]
[2021-04-23 10:14] LABS: ABG Base Excess -11.2 mmol/L (-2.4-2.3); ABG HCO3 13.6 mmhg (22.0-26.0); ABG Oxygen Saturation 88 % (90-100); ABG PCO2 22.6 mmhg (35.0-45.0); ABG PO2 52.7 mmhg (80-100); ABG TCO2 14.3 mmhg (23-27)
[2021-04-23 10:20] LABS: Allen's Test ACCEPTABLE; Oxygen 100 %; Source Right Radial
[2021-04-23 10:21] LABS: Lactate Arterial 2.4 mmol/L (0.4-2.0)
--- NOTE | 2021-04-23 10:54 | DIET.NUTRFU ---
Chart review inidcated possible thrush with nystatin started, showing slight decline in meal intake. Will start Ensure BID to help meet nutritional needs.
--- NOTE | 2021-04-23 12:15 | XR_ITS ---
FINAL REPORT CLINICAL HISTORY: post intubation stat covid pneumonia og tube also FINDINGS: SINGLE VIEW CHEST. There is a new endotracheal tube with the tip in the midthoracic trachea. A nasogastric tube is present with the tip not well visualized but appears to be below the diaphragm. The heart is normal in size. The mediastinum is unremarkable. There are persistent, diffuse pulmonary opacities consistent with pneumonia. There is no pneumothorax. IMPRESSION: New endotracheal tube with tip in the midthoracic trachea. Persistent diffuse pulmonary opacities consistent with pneumonia. Reviewed, Interpreted and Dictated by Damian Valdovinos III, MD Transcribed by Dana Gillespie Authenticated by Damian Valdovinos III, MD on 04/23/2021 01:07:09 PM [facility]
[2021-04-23 14:50] LABS: Microscopic, Urine URINE MICROSCOPIC (MICROSCOPIC)
[2021-04-23 15:16] LABS: Appearance,Urine CLEAR (Clear); Bilirubin,Urine Negative (Negative); Blood, Urine 2+ (Negative); Color,Urine YELLOW (Yellow); Glucose,Urine (UA) 3+ (Negative); Ketones,Urine 3+ (Negative); Leukocyte Esterase,Urine Negative (Negative); Nitrate,Urine Negative (Negative); PH,Urine 5.5 (5.0-8.5); Protein,Urine 2+ (Negative); Specific Gravity, Urine >= 1.030 (1.005-1.030); Urobilinogen,Urine 0.2 EU/dl (0.2)
--- NOTE | 2021-04-23 15:16 | PC.WOUNDNOTE ---
Initial skin assessment post intubation
[2021-04-23 16:06] LABS: WBC,Urine Occasional #/hpf (0-3)
--- NOTE | 2021-04-23 17:14 | PC.NURSE ---
1200- Patient intubated at this time per anesthesiology with 8.0 ETT 21@lip, 16F OG placed @70, placement of ETT and OG tube confirmed via cxr.
--- NOTE | 2021-04-23 17:59 | PC.NURSE ---
Notified Dr Rosado that patient has had a fair amount of bloody residual from his OG tube. Received new order for CBC, PT/PTT, D-dimer, Fibrinogen, orders placed at this time.
--- NOTE | 2021-04-23 18:07 | PC.NURSE ---
Patient intubated this shift after being unable to maintain o2 saturations greater than 85% despite being on vapotherm at 100% with NRB in place, was intubated with 8.0 ETT 22@lip midline, current vent settings AC mode, FiO2 100%, RR 26, Peep 14, TV 440. Patient is sedated with versed and fentanyl with a goal of deep sedation, NSR/ST per telemetry, lung sounds diminished t/o, HR reg, abd soft with hypoactive bowel sounds in all quads, OG tube in place, placed to suction after getting bloody residual, MD notified awaiting results of stat labwork ordered per MD, FC patent and draining clear yellow urine at bedside, peripheral pulses 2+, no edema noted, perrla, RASS -3, CPOT 0, no s/s of distress noted, vss.
[2021-04-23 18:51] LABS: Basophils # 0.1 K/mm3 (0-0.2); Basophils % 0.3 % (0.1-2.0); Hematocrit 44.6 % (42.0-52.0); Hemoglobin 14.6 g/dL (14.1-18.0); Lymphocytes # 0.4 K/mm3 (0.7-4.5); Lymphocytes % 1.7 % (10-50); MANUAL DIFFERENTIAL MANUAL DIFFERENTIAL (MANUAL DIFF); Mean Corpuscular HGB Conc 32.7 g/dL (31.8-35.4); Mean Corpuscular Volume 91.9 fl (80-94); Mean Platelet Volume 8.7 fl (7.4-10.4); Monocytes # 0.6 K/mm3 (0.1-1.0); Monocytes % 2.4 % (1.7-9.3); Neutrophils % 95.5 % (37.0-80.0); Platelet Count 361 K/mm3 (142-424); Red Blood Count 4.85 M/mm3 (4.60-6.20); Red Cell Distribution Width 13.4 % (11.5-17.5)
[2021-04-23 19:11] LABS: Activated Partial Thrombo Time 32.5 seconds (22.8-30.6); INR 1.13 (0.9-1.1); Prothrombin Time 12.7 seconds (10.1-12.5)
--- NOTE | 2021-04-23 19:24 | PC.NURSE ---
1345- Spoke with Rena LYLES about visitation, patient is allowed to have visit for 30 minutes per day during visiting hours, visitation with only no other family members. Spoke with patients family about visitation and they verbalized understanding and were agreeable.
[2021-04-23 19:25] LABS: Lymphocytes % 5 % (10-50); Monocytes % 1 % (2-9); Neutrophils % 93 % (42-76); Platelet Estimate Normal; RBC Morphology Normal; Total Cells Counted 100
[2021-04-23 21:00] LABS: Fibrinogen 860 mg/dL (229.9-363.5)
--- NOTE | 2021-04-23 21:15 | PC.NURSE ---
Lab values reported to MD Rosado.
[2021-04-24] VITALS (27 sets, daily range): BP systolic 115–163; BP diastolic 68–92; PULSE 86–112; RESP 14–33; TEMP 36.6–37.5; O2SAT 94–99; BMI 31.0
--- NOTE | 2021-04-24 00:55 | PC.NURSE ---
Spoke with [facility] and updated on them on pt status. No bed available at this time.
--- NOTE | 2021-04-24 05:22 | PC.NURSE ---
Vent settings are as follows: AC, FiO2 100%, TV 440, R 26, PEEP 14. Pt has been over breathing vent at times this shift. Pt is moderately to deeply sedated. VSS. Versed gtt is infusing @ 0.15 mg/kg/hr. Fentanyl @ 100 mcg/hr. F/C draining to bedside with clear, yellow urine. Output has been good this shift. OG noted to have blood tinged drainage. Placement confirmed. No BM this shift. Oral care provided. Pt turned Q2 hr. Bed bath provided this shift. Will continue to monitor.
--- NOTE | 2021-04-24 06:00 | XR_ITS ---
PROCEDURE INFORMATION: Exam: XR Chest Exam date and time: 04/24/2021 6:00 AM Age: 65 years old Clinical indication: Device placement; Ett placement (vent status); Patient HX: Covid +; Additional info: Follow up intubation TECHNIQUE: Imaging protocol: XR of the chest. Views: 1 view. COMPARISON: CR XR CHEST PORTABLE 04/23/2021 12:29 PM FINDINGS: Tubes, catheters and devices: Nasogastric tube extending below the diaphragm. Endotracheal tube at the level of clavicular heads, approximately 7.7 cm above the tami. Lungs: Bilateral scattered heterogeneous pulmonary opacities, infectious/inflammatory and/or pulmonary edema. Pleural spaces: No pleural effusion. No pneumothorax. Heart/Mediastinum: Unremarkable cardiomediastinal silhouette. Bones/joints: No acute osseous findings. IMPRESSION: Bilateral scattered heterogeneous pulmonary opacities, infectious/inflammatory and/or pulmonary edema. Recommend imaging follow-up until complete resolution.
[2021-04-24 06:49] LABS: Alanine Aminotransferase 29 U/L (12-78); Albumin/Globulin Ratio 0.8 (1.1-1.8); Alkaline Phosphatase 215 U/L (38-126); Anion Gap 9.9 mEq/L (5-15); Aspartate Amino Transferase 44 U/L (17-59); Bilirubin,Total 0.4 mg/dl (0.2-1.3); Blood Urea Nitrogen 22 mg/dl (9-20); Calcium 8.1 mg/dl (8.4-10.2); Carbon Dioxide 28 mmol/L (22.0-30.0); Chloride 100 mmol/L (98-107); Creatinine Clearance Estimated 108 mL/min (50-200); Estimated Glomerular Filt Rate 96 ml/min (>60); GFR (African American) 117 ML/MIN (>60); Globulin 3.9 g/dL (1.3-3.2); Glucose 180 mg/dl (74-100); Potassium 3.9 mmoL/L (3.5-5.1); Sodium 134 mmol/L (136-145); Total Protein,Serum 6.9 g/dl (6.3-8.2)
[2021-04-24 06:52] LABS: C-Reactive Protein 142.8 mg/L (0-4)
[2021-04-24 07:00] LABS: Basophils % 0.1 % (0.1-2.0); Hematocrit 44.3 % (42.0-52.0); Hemoglobin 14.4 g/dL (14.1-18.0); Lymphocytes # 0.5 K/mm3 (0.7-4.5); Lymphocytes % 2.3 % (10-50); Mean Corpuscular HGB Conc 32.5 g/dL (31.8-35.4); Mean Corpuscular Hemoglobin 30.9 pg (27.0-31.2); Mean Corpuscular Volume 94.9 fl (80-94); Monocytes # 0.6 K/mm3 (0.1-1.0); Monocytes % 2.9 % (1.7-9.3); Neutrophils # 21.1 K/mm3 (1.8-7.8); Neutrophils % 94.7 % (37.0-80.0); Platelet Count 371 K/mm3 (142-424); Red Blood Count 4.66 M/mm3 (4.60-6.20); Red Cell Distribution Width 13.5 % (11.5-17.5); White Blood Count 22.3 K/mm3 (4.8-10.8)
[2021-04-24 07:12] LABS: MANUAL DIFFERENTIAL MANUAL DIFFERENTIAL (MANUAL DIFF)
[2021-04-24 07:46] LABS: Lactate Arterial 1.7 mmol/L (0.4-2.0)
[2021-04-24 07:49] LABS: ABG Base Excess -2.9 mmol/L (-2.4-2.3); ABG HCO3 23.6 mmhg (22.0-26.0); ABG Oxygen Saturation 94 % (90-100); ABG PCO2 49.5 mmhg (35.0-45.0); ABG TCO2 25.1 mmhg (23-27); Allen's Test ACCEPTABLE; Oxygen 100 %; PEEP 14; Source R RADIAL; Tidal Volume 440; Vent Rate 26
[2021-04-24 09:13] LABS: Lymphocytes % 1 % (10-50); Monocytes % 1 % (2-9); Neutrophils % 98 % (42-76); Platelet Estimate Normal; Total Cells Counted 100
[2021-04-24 09:14] LABS: RBC Morphology Normal
--- NOTE | 2021-04-24 10:01 | XR_ITS ---
FINAL REPORT CLINICAL HISTORY: subcu air noted to neck and upper chest COMPARISON: One day prior FINDINGS: ET and NG tubes remain in place. The heart size is normal. There is pneumomediastinum, new from prior. Soft tissue air is again seen in the neck bilaterally. There are persistent bilateral pulmonary opacities consistent with bilateral pneumonia. IMPRESSION: Bilateral pneumonia. Soft tissue air in the neck bilaterally with new pneumomediastinum. Reviewed, Interpreted and Dictated by Damian Valdovinos III, MD Transcribed by Rosalio Muñoz Authenticated by Damian Valdovinos III, MD on 04/24/2021 11:52:54 AM [facility]
--- NOTE | 2021-04-24 10:07 | DIET.NUTRFU ---
RD rounded with physicians this morning. Pt NPO, NG tube in place and intubated. TF is needed but not appropriate d/t pt having coffee ground black emesis. When appropriate to start TF, goal rate of Pulmocare will provide 1767 kcals, 110 g protein, and 1390 mL h2o. Flush with
--- NOTE | 2021-04-24 10:14 | DIET.NUTRFU ---
RD rounded with physicians this morning. Pt NPO, NG tube in place and intubated. TF is needed but not appropriate d/t pt having coffee ground black emesis. When appropriate to start TF, goal rate of 80 mL/hr of Pulmocare will provide 2790 kcals, 115 g protein, and 1444 mL h2o. Flush with 150 cc q4h = 2290 cc in order to meet pt fluid needs. Pt receiving some fluid through IVF sodium chloride. Used current bw of 106kg. Reviewed labs today, Na 134L, K 3.9, BUN 22H, Cr 0.80, glucose 180H, Alk phos 215H. Propofol has been DIC.
--- NOTE | 2021-04-24 10:34 | HMH.PHAHEP ---
[facility] Heparin Dosing - Demographic Data Admission date:: 04/14/21 Date: 04/24/21 Time: 10:35 Allergies/Adverse Reactions: Allergies Allergy/AdvReac Type Severity Reaction Status Date / Time No Known Allergies Allergy Verified 04/14/21 18:51 Height: 1.85 m Weight: 106.2 kg - Indication Medication therapy:: Heparin Patient Problems: Current Active Problems Pneumonia due to COVID-19 virus (Acute) Respiratory failure with hypoxia (Acute) Pulmonary embolism (Acute) Subcutaneous air (Acute) Pneumothorax (Acute) Tachycardia (Acute) Abnormal chest x-ray (Acute) CVA?: No Bleeding problem?: No Kidney disease?: No MO?: No Desired PTT range:: Other (50-75) - Labs Anticoagulation Lab Results:: 04/23/21 04/24/21 18:30 05:39 Hgb 14.6 14.4 Hct 44.6 44.3 Plt Count 361 371 - Monitoring Dose Monitor 1 Date: 04/24/21 Time: 10:30 Infusion Rate:: 38 ML/HR (1,900 UNITS/HR) Comment:: 8,500 UNIT HEPARIN BOLUS Dose Monitor 2 Date: 04/24/21 Time: 15:00 PTT Result:: 82.6 Infusion Rate:: 1,900 UNITS/HR Dose Monitor 3 Date: 04/24/21 Time: 17:00 PTT Result:: 74.0 Infusion Rate:: 1,900 UNITS/HR Dose Monitor 4 Date: 04/25/21 Time: 00:27 PTT Result:: 59.2 Infusion Rate:: 1,900 UNITS/HR Dose Monitor 5 Date: 04/25/21 Time: 07:45 PTT Result:: 60.9 Infusion Rate:: 1,900 UNITS/HR Comment:: [id number] Dose Monitor 6 Date: 04/25/21 Time: 15:00 PTT Result:: 42.2 Infusion Rate:: INCREASE RATE TO 2,100 UNITS/HR Comment:: 3,000 UNIT BOLUS Dose Monitor 7 Date: 04/25/21 Time: 22:30 PTT Result:: 74.8 Infusion Rate:: 2,100 UNITS/HR Dose Monitor 8 Date: 04/26/21 Time: 05:30 PTT Result:: 54.1 Infusion Rate:: 2,100 UNITS/HR Comment:: [id number] Dose Monitor 9 Date: 04/26/21 Time: 14:00 PTT Result:: 52.5 Infusion Rate:: 2,100 UNITS/HR Dose Monitor 10 Date: 04/26/21 Time: 21:00 PTT Result:: 61.1 Infusion Rate:: 2,100 UNITS/HR Dose Monitor 11 Date: 04/27/21 Time: 06:00 PTT Result:: 78.7 Infusion Rate:: DECREASE RATE TO 2,000 UNITS/HR Comment:: [id number] Dose Monitor 12 Date: 04/27/21 Time: 13:00 PTT Result:: 83.1 Infusion Rate:: DECREASE RATE TO 1,900 UNITS/HR Dose Monitor 13 Date: 04/27/21 Time: 20:30 PTT Result:: 65.6 Infusion Rate:: 1,900 UNITS/HR Dose Monitor 14 Date: 04/28/21 Time: 04:22 PTT Result:: 68.3 Infusion Rate:: 1,900 UNITS/HR Comment:: [id number] Dose Monitor 15 Date: 04/29/21 Time: 06:00 PTT Result:: 49.0 Infusion Rate:: INCREASE RATE TO 2,100 UNITS/HR Comment:: 3,000 UNIT BOLUS [id number] Dose Monitor 16 Date: 04/29/21 Time: 15:00 PTT Result:: 100.5 Infusion Rate:: DECREASE RATE TO 2,000 UNITS/HR Dose Monitor 17 Date: 04/29/21 Time: 21:00 PTT Result:: 105 Infusion Rate:: DECREASE RATE TO 1,700 UNITS/HR Dose Monitor 18 Date: 04/30/21 Time: 03:30 PTT Result:: 88.0 Infusion Rate:: DECREASE RATE TO 1,500 UNITS/HR Comment:: [id number] Dose Monitor 19 Date: 04/30/21 Time: 10:20 PTT Result:: 67.3 Infusion Rate:: 1,500 UNITS/HR Comment:: [id number] Dose Monitor 20 Date: 04/30/21 Time: 18:00 PTT Result:: 57.8 Infusion Rate:: 1,500 UNITS/HR Dose Monitor 21 Date: 05/01/21 Time: 06:50 PTT Result:: 47.9 Infusion Rate:: INCREASE RATE TO 1,700 UNITS/HR Comment:: [id number] 3,000 UNIT BOLUS Dose Monitor 22 Date: 05/01/21 Time: 14:10 PTT Result:: 80.9 Infusion Rate:: DECREASE RATE TO 1,600 UNITS/HR Dose Monitor 23 Date: 05/01/21 Time: 21:00 PTT Result:: 85.2 Infusion Rate:: DECREASE RATE TO 1,500 UNITS/HR Dose Monitor 24 Date: 05/02/21 Time: 05:40 PTT Result:: 98.9 Infusion Rate:: DECREASE RATE TO 1,350 UNITS/HR Dose Monitor 25 Date: 05/02/21 Time: 18:51 PTT Result:: 64.3
--- NOTE | 2021-04-24 10:54 | HMH.ACPN2 ---
Internal Medicine - PN: Subj *Date: 04/24/21 *Time: 09:00 Interval history: intubated, sq air present, coffee ground emisis in suction Exam Vital signs and Labs for Last 24 Hours: Temp Pulse Resp BP Pulse Ox 98.7 F 104 H 28 H 137/78 94 L 04/24/21 08:00 04/24/21 10:00 04/24/21 10:00 04/24/21 10:00 04/24/21 10:00 Laboratory Results - last 24 hr 04/23/21 12:30: Urine Color Yellow, Urine Appearance Clear, Urine pH 5.5, Ur Specific [place] >= 1.030, Urine Protein 2+, Urine Glucose (UA) 3+, Urine Ketones 3+, Urine Blood 2+, Urine Nitrate Negative, Urine Bilirubin Negative, Urine Urobilinogen 0.2, Ur Leukocyte Esterase Negative, Urine RBC 5-10, Urine WBC Occasional, Ur Squamous Epith Cells 3-5, Urine Bacteria None 04/23/21 18:30: WBC 23.0 H*, RBC 4.85, Hgb 14.6, Hct 44.6, MCV 91.9, MCH 30.0, MCHC 32.7, RDW 13.4, Plt Count 361, MPV 8.7, Neut % (Auto) 95.5 H, Lymph % (Auto) 1.7 L, [place] % (Auto) 2.4, Eos % (Auto) 0.0 L, Baso % (Auto) 0.3, Neut # (Auto) 22.0 H, Lymph # (Auto) 0.4 L, [place] # (Auto) 0.6, Eos # (Auto) 0.0, Baso # (Auto) 0.1, Total Counted 100, Neutrophils % (Manual) 93 H, Band Neutrophils % 1.0, Lymphocytes % (Manual) 5 L, Monocytes % (Manual) 1 L, Platelet Estimate Normal, RBC Morphology Normal 04/23/21 18:30: D-Dimer 2.60 H 04/23/21 18:30: PT 12.7 H, INR 1.13 H, APTT 32.5 H 04/23/21 18:30: Fibrinogen 860 H 04/24/21 05:39: WBC 22.3 H*, RBC 4.66, Hgb 14.4, Hct 44.3, MCV 94.9 H, MCH 30.9, MCHC 32.5, RDW 13.5, Plt Count 371, MPV 9.0, Neut % (Auto) 94.7 H, Lymph % (Auto) 2.3 L, [place] % (Auto) 2.9, Eos % (Auto) 0.0 L, Baso % (Auto) 0.1, Neut # (Auto) 21.1 H, Lymph # (Auto) 0.5 L, [place] # (Auto) 0.6, Eos # (Auto) 0.0, Baso # (Auto) 0.0, Total Counted 100, Neutrophils % (Manual) 98 H, Lymphocytes % (Manual) 1 L, Monocytes % (Manual) 1 L, Platelet Estimate Normal, RBC Morphology Normal 04/24/21 05:39: C-Reactive Protein 142.8 H 04/24/21 05:39: Sodium 134 L, Potassium 3.9, Chloride 100, Carbon Dioxide 28, Anion Gap 9.9, BUN 22 H D, Creatinine 0.80 D, Estimated Creat Clear 108, Estimated GFR 96, Est GFR ( Amer) 117 D, Glucose 180 H, Calcium 8.1 L, Total Bilirubin 0.4, AST 44, ALT 29, Alkaline Phosphatase 215 H, Total Protein 6.9, Albumin 3.0 L D, Globulin 3.9 H, Albumin/Globulin Ratio 0.8 L 04/24/21 06:00: ABG Lactate 1.7 04/24/21 07:48: Specimen Source R radial, O2 % 100, ABG pH 7.30 L, ABG pCO2 49.5 H, ABG pO2 74.0 L, ABG HCO3 23.6, ABG Total CO2 25.1, ABG O2 Saturation 94, ABG Base Excess -2.9 L, [place] Test Acceptable, Vent Rate 26, Tidal Volume 440, PEEP 14 I & O for Last 24 hours: Intake & Output 04/21/21 04/22/21 04/23/21 04/24/21 11:59 11:59 11:59 11:59 Intake Total 1361 / 1361 2745 / 2745 830 / 830 1543.625 / 1543.625 Output Total 500 / 500 600 / 600 2300 / 2300 2240 / 2240 Balance 861 / 861 2145 / 2145 -1470 / -1470 -696.375 / -696.375 Weight 237 lb 9.6 oz 235 lb 8 oz 232 lb 7 oz 234 lb 2.095 oz Microbiology Reports for the Last 24 Hours: Microbiology 04/23/21 12:20 Sputum - Endotracheal Tube Aspirate Gram Stain - Final - Constitutional no acute distress - *Routine HEENT Exam Head: Present: normocephalic Eye: Present: PERRL ENT: Present: mucous membranes moist - *Routine Neck Exam Present: supple. Absent: lymphadenopathy Comments: sq air in neck and upper shoulders - *Routine Respiratory Exam Present: patient mechanically ventilated - *Routine Cardiovascular Exam Present: RRR - *Routine Abdominal Exam Present: soft, normoactive bowel sounds. Absent: tenderness - *Routine Extremities Exam Absent: cyanosis, clubbing, edema - *Routine Skin Exam Present: warm. Absent: rash - *Routine Neurological Exam sedated Assessment and Plan (1) Pneumonia due to COVID-19 virus Status: Acute Category: Medical Code(s): U07.1 - COVID-19; J12.82 - Pneumonia due to coronavirus disease 2019 (2) Respiratory failure with hypoxia Status: Acute Qualifiers: Chronicity: acu
[2021-04-24 11:09] LABS: PTT Heparin (inpatient only) 28.8 Seconds (23.6-34.0)
--- NOTE | 2021-04-24 13:34 | HMH.GSCON ---
*Admission Date: 04/14/21 *Reason for consult:: Bloody nasogastric tube aspirate *History of present illness: This is a 65-year-old gentleman with severe hypoxic respiratory failure secondary to COVID-pneumonia. What was described as coffee ground bloody nasogastric aspirate has been noted per nursing. Review of Systems - Review of Systems Review of systems:: unable to obtain - *Neurologic Reports weakness, Denies abnormal walking, Denies abnormal speech, Denies behavioral changes, Denies headache(s) [facility] History *Have you ever received a pneumonia vaccine?: No *Have you received a flu vaccine this season?: No - *Social History Last grade of school completed: Some college Smoking Status: Never smoker Alcohol Intake: never *Occupational Status:: employed Household Members: spouse *Travel in the last 8 weeks: None Family Hx:: No significant family history Meds Home Medications Medication Instructions Recorded Confirmed Type No Known Home Medications 04/14/21 04/14/21 History Allergies Allergy/AdvReac Type Severity Reaction Status Date / Time No Known Allergies Allergy Verified 04/14/21 18:51 Exam Vital signs and Labs for Last 24 Hours: Temp Pulse Resp BP Pulse Ox 99.3 F 110 H 28 H 124/74 95 04/24/21 12:00 04/24/21 12:00 04/24/21 12:00 04/24/21 12:00 04/24/21 12:00 Laboratory Results - last 24 hr 04/23/21 12:30: Urine Color Yellow, Urine Appearance Clear, Urine pH 5.5, Ur Specific [place] >= 1.030, Urine Protein 2+, Urine Glucose (UA) 3+, Urine Ketones 3+, Urine Blood 2+, Urine Nitrate Negative, Urine Bilirubin Negative, Urine Urobilinogen 0.2, Ur Leukocyte Esterase Negative, Urine RBC 5-10, Urine WBC Occasional, Ur Squamous Epith Cells 3-5, Urine Bacteria None 04/23/21 18:30: WBC 23.0 H*, RBC 4.85, Hgb 14.6, Hct 44.6, MCV 91.9, MCH 30.0, MCHC 32.7, RDW 13.4, Plt Count 361, MPV 8.7, Neut % (Auto) 95.5 H, Lymph % (Auto) 1.7 L, [place] % (Auto) 2.4, Eos % (Auto) 0.0 L, Baso % (Auto) 0.3, Neut # (Auto) 22.0 H, Lymph # (Auto) 0.4 L, [place] # (Auto) 0.6, Eos # (Auto) 0.0, Baso # (Auto) 0.1, Total Counted 100, Neutrophils % (Manual) 93 H, Band Neutrophils % 1.0, Lymphocytes % (Manual) 5 L, Monocytes % (Manual) 1 L, Platelet Estimate Normal, RBC Morphology Normal 04/23/21 18:30: D-Dimer 2.60 H 04/23/21 18:30: PT 12.7 H, INR 1.13 H, APTT 32.5 H 04/23/21 18:30: Fibrinogen 860 H 04/24/21 05:39: WBC 22.3 H*, RBC 4.66, Hgb 14.4, Hct 44.3, MCV 94.9 H, MCH 30.9, MCHC 32.5, RDW 13.5, Plt Count 371, MPV 9.0, Neut % (Auto) 94.7 H, Lymph % (Auto) 2.3 L, [place] % (Auto) 2.9, Eos % (Auto) 0.0 L, Baso % (Auto) 0.1, Neut # (Auto) 21.1 H, Lymph # (Auto) 0.5 L, [place] # (Auto) 0.6, Eos # (Auto) 0.0, Baso # (Auto) 0.0, Total Counted 100, Neutrophils % (Manual) 98 H, Lymphocytes % (Manual) 1 L, Monocytes % (Manual) 1 L, Platelet Estimate Normal, RBC Morphology Normal 04/24/21 05:39: C-Reactive Protein 142.8 H 04/24/21 05:39: Sodium 134 L, Potassium 3.9, Chloride 100, Carbon Dioxide 28, Anion Gap 9.9, BUN 22 H D, Creatinine 0.80 D, Estimated Creat Clear 108, Estimated GFR 96, Est GFR ( Amer) 117 D, Glucose 180 H, Calcium 8.1 L, Total Bilirubin 0.4, AST 44, ALT 29, Alkaline Phosphatase 215 H, Total Protein 6.9, Albumin 3.0 L D, Globulin 3.9 H, Albumin/Globulin Ratio 0.8 L 04/24/21 06:00: ABG Lactate 1.7 04/24/21 07:48: Specimen Source R radial, O2 % 100, ABG pH 7.30 L, ABG pCO2 49.5 H, ABG pO2 74.0 L, ABG HCO3 23.6, ABG Total CO2 25.1, ABG O2 Saturation 94, ABG Base Excess -2.9 L, [place] Test Acceptable, Vent Rate 26, Tidal Volume 440, PEEP 14 04/24/21 10:45: APTT 28.8 I & O for Last 24 hours: Intake & Output 04/22/21 04/23/21 04/24/21 04/25/21 11:59 11:59 11:59 11:59 Intake Total 2745 / 2745 830 / 830 1582.625 / 1618.625 36 / 36 Output Total 600 / 600 2300 / 2300 2315 / 2365 50 / 50 Balance 2145 / 2145 -1470 / -1470 -732.375 / -746.375 -14 / -14 Weight 235 lb 8 oz 232 lb 7 oz 234 lb 2.095 oz Microbiology Reports for t
--- NOTE | 2021-04-24 14:55 | HMH.PULMPN ---
Internal Medicine - PN: Subj *Date: 04/24/21 *Time: 14:55 Interval history: No acute respiratory events overnight. Patient can remain on high ventilator settings. Exam - Constitutional Constitutional:: Absent: no acute distress, comfortable - HENMT Exam HENMT: Present: normocephalic - Eye Exam Eyes:: Present: normal appearance both eyes and related structures - Neck Exam Comments: Worsening subcutaneous emphysema. - Respiratory Exam Respiratory:: Present: no respiratory distress, rales - Cardiovascular Exam Cardiac:: Present: S1, S2 - GI Exam GI:: Present: soft - Skin Exam Skin: Present: warm, no rash - Neurological Exam Neurological: Absent: alert, awake, normal cognition Intubated and sedated - Extremities Exam Extremities: Present: no cyanosis, no clubbing, edema Assessment and Plan (1) Pneumonia due to COVID-19 virus Status: Acute Category: Medical Code(s): U07.1 - COVID-19; J12.82 - Pneumonia due to coronavirus disease 2019 (2) Respiratory failure with hypoxia Status: Acute Qualifiers: Chronicity: acute Qualified Code(s): J96.01 - Acute respiratory failure with hypoxia Category: Medical Code(s): J96.91 - Respiratory failure, unspecified with hypoxia (3) Pulmonary embolism Status: Acute Qualifiers: Pulmonary embolism type: single subsegmental (without acute cor pulmonale) Qualified Code(s): I26.93 - Single subsegmental pulmonary embolism without acute cor pulmonale Category: Medical Code(s): I26.99 - Other pulmonary embolism without acute cor pulmonale - Assessment and plan all Dx Assessment and Plan for all problems:: #Acute hypoxic respiratory failure #COVID-19 pneumonia: #Pulmonary embolus: 65-year-old male, no significant prior respiratory complaints, no significant smoking history. Not yet vaccinated for COVID-19 pneumonia. Present with worsening fatigue malaise and respiratory distress. CRP elevated at 140. D-dimer at 0.92. CTA showed right lower lobe pulmonary emboli showed bilateral diffuse groundglass opacities along with lower lobe patchy consolidation/atelectasis. Sputum culture less than 10 WBC, gram-positive cocci, yeast and hyphae, yeast ID request place on 04/18/21 Echocardiogram, normal EF with inconclusive diastolic parameters. Completed 7 days of ceftriaxone and 5 days of azithromycin. Sputum cultures no growth along with blood cultures. Nasal MRSA PCR negative. Respiratory status continued to worsen and eventually intubated for mechanical ventilatory support on 04/23/2021. Interval update:- Respiratory status remained relatively stable post ex intubation. Continue to remain critical on high ventilator settings. Slight improvement in oxygenation. Noted to have upper GI bleeding. Subcutaneous emphysema noted, progressively getting worse. No obvious evidence of pneumothorax on chest x-ray. Plan: -Intubated and sedated. Continue Versed and fentanyl. Deep sedation. -Continue mechanical ventilatory support. X-ray from this morning relatively stable airspace disease. Worsening subcutaneous emphysema. No obvious evidence of pneumothorax. We will closely monitor. ET tube advanced by 2 cm. Blood gas improved, pH is 7.3, PCO2 49.5 and PO2 of 74. Continue to remain on PEEP of 14, 100% FiO2 and a rate of 26. Deeply sedated, intermittent asynchronous breathing. Tidal volume increased to 460. Flow decreased 2.7. Plateau pressure ranging around 30. Tracheal aspirate growing gram-positive cocci. Initiate Zosyn. Continue dexamethasone and baricitinib. Continue heparin drip for acute pulmonary embolism. Duo nebs Every 6 hours scheduled -Worsening leukocytosis. Initiated on Zosyn. Continue to monitor. -Hemodynamically stable. Not on any pressors. -Abdomen soft nontender. Will help hold off on initiating tube feeds. Bloody secretions from NG tube. Consult GI or surgery. We will change Lovenox to heparin drip. Hemoglobin stable. -Renal
[2021-04-24 15:50] LABS: PTT Heparin (inpatient only) 82.6 Seconds (23.6-34.0)
--- NOTE | 2021-04-24 17:34 | CT_ITS ---
PROCEDURE INFORMATION: Exam: CT Chest Without Contrast; Diagnostic Exam date and time: 04/24/2021 5:34 PM Age: 65 years old Clinical indication: Other: Possible pneumonthorax; Additional info: Subcutaneous air, possible pneumothorax TECHNIQUE: Imaging protocol: Diagnostic computed tomography of the chest without contrast. Radiation optimization: All CT scans at this facility use at least one of these dose optimization techniques: automated exposure control; mA and/or kV adjustment per patient size (includes targeted exams where dose is matched to clinical indication); or iterative reconstruction. COMPARISON: CT ANGIO CHEST PE PROTOCOL 04/14/2021 7:31 PM FINDINGS: Tubes, catheters and devices: NG tube in the stomach. ET tube in good position. Lungs: Bilateral lower lobe consolidation. Peripheral predominant ground-glass infiltrates characteristic of COVID-19 pneumonitis. Pleural spaces: Unremarkable. No pneumothorax. No pleural effusion. Heart: Unremarkable. No cardiomegaly. No pericardial effusion. Mediastinal space: Pneumomediastinum. Aorta: Unremarkable. No aortic aneurysm. Lymph nodes: Unremarkable. No enlarged lymph nodes. Bones/joints: Unremarkable. No acute fracture. Soft tissues: Extensive subcutaneous emphysema. IMPRESSION: 1. Pneumomediastinum. No pneumothorax. 2. Bilateral lower lobe consolidation. 3. Peripheral predominant ground-glass infiltrates characteristic of COVID-19 pneumonitis. 4. Extensive subcutaneous emphysema.
--- NOTE | 2021-04-24 20:27 | PC.NURSE ---
SPOKE WITH JARON DAVISON AND BARBRA DAVISON TO INFORM THEM I HAD SPOKE WITH [facility] AND TO NOTIFY THEM OF CHANGE IN PATIENT STATUS. INFORMED THEM ALL HOSPITAL CONTINUE TO HAVE HIM ON A WAITLIST WITH NO PROMISE OF TRANSFER ANYTIME SOON. FAMILY STATED THEY WOULD LIKE TO TRY [facility] OR [place] OR ANY [facility] THEY FEEL PATIENT WOULD BE BETTER SERVED WITH GREATER RESOURCES THAN WE CAN OFFER AT [facility]. PRIYA, DIESEL LOC[employer]IVE CRANE OPERATOR TO NOTIFY DR. VIVAR OF FAMILY WISHES. I ALSO NOTIFIED FAMILY TO BE HERE ON AM ROUNDS TO SPEAK TO PRIMARY CARE DOCTOR. FAMILY VERBALIZED UNDERSTANDING.
[2021-04-25] VITALS (35 sets, daily range): BP systolic 111–135; BP diastolic 62–78; PULSE 70–94; RESP 3–32; TEMP 36.7–37.2; O2SAT 96–100; BMI 30.7
[2021-04-25 00:47] LABS: PTT Heparin (inpatient only) 59.2 Seconds (23.6-34.0)
--- NOTE | 2021-04-25 00:56 | PC.NURSE ---
Addendum entered by Kiarra Alonso RN 04/25/21 02:07: nursing skin note/nursing wound note Original Note:
--- NOTE | 2021-04-25 01:53 | PC.NURSE ---
spoke with night watch about pt's aPTT of 59.2, no changes to heparin drip at this time (1900units/hr), night watch placing order for next aPTT in 6 hours
--- NOTE | 2021-04-25 06:00 | XR_ITS ---
PROCEDURE INFORMATION: Exam: XR Chest Exam date and time: 04/25/2021 6:00 AM Age: 65 years old Clinical indication: Device placement; Ett placement (vent status); Patient HX: Covid +; Additional info: Follow up intubation TECHNIQUE: Imaging protocol: XR of the chest. Views: 1 view. COMPARISON: CT CHEST WO CON 04/24/2021 5:53 PM FINDINGS: Tubes, catheters and devices: Endotracheal tube 4.8 cm above the tami. Lungs: Bilateral scattered heterogeneous pulmonary opacities, infectious/inflammatory and/or pulmonary edema. Pleural spaces: No pleural effusion. No pneumothorax. Heart/Mediastinum: Known pneumomediastinum and soft tissue emphysema. Bones/joints: No acute osseous findings. IMPRESSION: 1. Bilateral scattered heterogeneous pulmonary opacities, infectious/inflammatory and/or pulmonary edema. Recommend imaging follow-up until complete resolution. 2. Known pneumomediastinum and soft tissue emphysema.
[2021-04-25 06:35] LABS: Basophils % 0.1 % (0.1-2.0); Hematocrit 39.6 % (42.0-52.0); Hemoglobin 12.7 g/dL (14.1-18.0); Lymphocytes # 0.4 K/mm3 (0.7-4.5); Lymphocytes % 2.1 % (10-50); Mean Corpuscular HGB Conc 32.2 g/dL (31.8-35.4); Mean Corpuscular Hemoglobin 30.5 pg (27.0-31.2); Mean Platelet Volume 9.1 fl (7.4-10.4); Monocytes # 0.4 K/mm3 (0.1-1.0); Monocytes % 2.3 % (1.7-9.3); Neutrophils # 17.6 K/mm3 (1.8-7.8); Neutrophils % 95.4 % (37.0-80.0); Platelet Count 310 K/mm3 (142-424); Red Blood Count 4.17 M/mm3 (4.60-6.20); Red Cell Distribution Width 13.9 % (11.5-17.5); White Blood Count 18.5 K/mm3 (4.8-10.8)
--- NOTE | 2021-04-25 06:44 | HMH.GSPN ---
Subjective Narrative: Per nursing staff, the patient's SQ emphysema has improved dramatically overnight. Nursing also reports that his gastric aspirate has also cleared significantly over the last 12 hours. Progress Note: A&P (1) Pneumonia due to COVID-19 virus Status: Acute (2) Respiratory failure with hypoxia Status: Acute (3) Pulmonary embolism Status: Acute Assessment and Plan for All Diagnoses:: Bloody nasogastric aspirate appears to be clearing. SQ emphysema improving. No pneumothorax noted on CT scan or chest x-ray. Continue management as per Primary Care and the Critical Care Service. Exam Vital signs and Labs for Last 24 Hours: Temp Pulse Resp BP Pulse Ox 98.6 F 90 3 L 121/73 100 04/25/21 04:00 04/25/21 06:34 04/25/21 06:34 04/25/21 06:00 04/25/21 06:34 Laboratory Results - last 24 hr 04/24/21 05:39: WBC 22.3 H*, RBC 4.66, Hgb 14.4, Hct 44.3, MCV 94.9 H, MCH 30.9, MCHC 32.5, RDW 13.5, Plt Count 371, MPV 9.0, Neut % (Auto) 94.7 H, Lymph % (Auto) 2.3 L, [place] % (Auto) 2.9, Eos % (Auto) 0.0 L, Baso % (Auto) 0.1, Neut # (Auto) 21.1 H, Lymph # (Auto) 0.5 L, [place] # (Auto) 0.6, Eos # (Auto) 0.0, Baso # (Auto) 0.0, Total Counted 100, Neutrophils % (Manual) 98 H, Lymphocytes % (Manual) 1 L, Monocytes % (Manual) 1 L, Platelet Estimate Normal, RBC Morphology Normal 04/24/21 05:39: C-Reactive Protein 142.8 H 04/24/21 05:39: Sodium 134 L, Potassium 3.9, Chloride 100, Carbon Dioxide 28, Anion Gap 9.9, BUN 22 H D, Creatinine 0.80 D, Estimated Creat Clear 108, Estimated GFR 96, Est GFR ( Amer) 117 D, Glucose 180 H, Calcium 8.1 L, Total Bilirubin 0.4, AST 44, ALT 29, Alkaline Phosphatase 215 H, Total Protein 6.9, Albumin 3.0 L D, Globulin 3.9 H, Albumin/Globulin Ratio 0.8 L 04/24/21 06:00: ABG Lactate 1.7 04/24/21 07:48: Specimen Source R radial, O2 % 100, ABG pH 7.30 L, ABG pCO2 49.5 H, ABG pO2 74.0 L, ABG HCO3 23.6, ABG Total CO2 25.1, ABG O2 Saturation 94, ABG Base Excess -2.9 L, Willian Test Acceptable, Vent Rate 26, Tidal Volume 440, PEEP 14 04/24/21 10:45: APTT 28.8 04/24/21 14:54: APTT 82.6 H* 04/24/21 17:01: APTT 74.0 H* 04/25/21 00:27: APTT 59.2 H* I & O for Last 24 hours: Intake & Output 04/22/21 04/23/21 04/24/21 04/25/21 11:59 11:59 11:59 11:59 Intake Total 2745 / 2745 830 / 830 1582.625 / 5656.403 5607 / 1880 Output Total 600 / 600 2300 / 2300 2315 / 2365 2020 / 2020 Balance 2145 / 2145 -1470 / -1470 -732.375 / -746.375 -140 / -140 Weight 235 lb 8 oz 232 lb 7 oz 234 lb 2.095 oz 232 lb 2.348 oz Microbiology Reports for the Last 24 Hours: Microbiology 04/23/21 12:20 Sputum - Endotracheal Tube Aspirate Gram Stain - Final - Constitutional Comments: sadated - *Routine Respiratory Exam Present: patient mechanically ventilated
[2021-04-25 06:59] LABS: Anion Gap 7.1 mEq/L (5-15); Blood Urea Nitrogen 28 mg/dl (9-20); Calcium 7.8 mg/dl (8.4-10.2); Carbon Dioxide 31 mmol/L (22.0-30.0); Chloride 103 mmol/L (98-107); Creatinine Clearance Estimated 107 mL/min (50-200); Estimated Glomerular Filt Rate 75 ml/min (>60); GFR (African American) 90 ML/MIN (>60); Glucose 253 mg/dl (74-100); Potassium 4.1 mmoL/L (3.5-5.1); Sodium 137 mmol/L (136-145)
[2021-04-25 07:06] LABS: MANUAL DIFFERENTIAL MANUAL DIFFERENTIAL (MANUAL DIFF)
[2021-04-25 08:07] LABS: ABG Base Excess 1.6 mmol/L (-2.4-2.3); ABG HCO3 27.4 mmhg (22.0-26.0); ABG Oxygen Saturation 97 % (90-100); ABG PH 7.34 mmol/L (7.35-7.45); ABG PO2 87.8 mmhg (80-100); Allen's Test acceptable; Oxygen 100 %; PEEP 14; Source Left Radial; Tidal Volume 460; Vent Rate 26
[2021-04-25 08:08] LABS: ABG PCO2 52.1 mmhg (35.0-45.0)
[2021-04-25 08:10] LABS: Lactate Arterial 1.8 mmol/L (0.4-2.0)
--- NOTE | 2021-04-25 08:15 | PC.NURSE ---
received call from lab reporting PTT 60.9. Name and verified. Heparin gtt currently infusing @ 1900 units/hr. Notified pharmacy (Jessica Brenner). No new orders at this time.
[2021-04-25 08:16] LABS: PTT Heparin (inpatient only) 60.9 Seconds (23.6-34.0)
[2021-04-25 09:00] LABS: Lymphocytes % 3 % (10-50); Neutrophils % 97 % (42-76); Platelet Estimate Normal; Total Cells Counted 100
[2021-04-25 09:01] LABS: RBC Morphology Normal
--- NOTE | 2021-04-25 09:19 | HMH.PULMPN ---
Internal Medicine - PN: Subj *Date: 04/25/21 *Time: 11:27 Interval history: No acute respiratory events overnight Exam - Constitutional Constitutional:: Absent: no acute distress, comfortable - HENMT Exam HENMT: Present: normocephalic - Eye Exam Eyes:: Present: normal appearance both eyes and related structures - Neck Exam Comments: Subcutaneous emphysema noted, appeared to be slightly improved from yesterday. - Respiratory Exam Respiratory:: Present: respiratory distress, decreased breath sounds, rales. Absent: wheezing - Cardiovascular Exam Cardiac:: Present: S1, S2 - GI Exam GI:: Present: soft - Skin Exam Skin: Present: warm - Neurological Exam Neurological: Absent: alert, awake, normal cognition - Extremities Exam Extremities: Absent: no cyanosis, no clubbing, no edema Assessment and Plan (1) Pneumonia due to COVID-19 virus Status: Acute Category: Medical Code(s): U07.1 - COVID-19; J12.82 - Pneumonia due to coronavirus disease 2019 (2) Respiratory failure with hypoxia Status: Acute Qualifiers: Chronicity: acute Qualified Code(s): J96.01 - Acute respiratory failure with hypoxia Category: Medical Code(s): J96.91 - Respiratory failure, unspecified with hypoxia (3) Pulmonary embolism Status: Acute Qualifiers: Pulmonary embolism type: single subsegmental (without acute cor pulmonale) Qualified Code(s): I26.93 - Single subsegmental pulmonary embolism without acute cor pulmonale Category: Medical Code(s): I26.99 - Other pulmonary embolism without acute cor pulmonale - Assessment and plan all Dx Assessment and Plan for all problems:: #Acute hypoxic respiratory failure #COVID-19 pneumonia: #Pulmonary embolus: 65-year-old male, no significant prior respiratory complaints, no significant smoking history. Not yet vaccinated for COVID-19 pneumonia. Present with worsening fatigue malaise and respiratory distress. CRP elevated at 140. D-dimer at 0.92. CTA showed right lower lobe pulmonary emboli showed bilateral diffuse groundglass opacities along with lower lobe patchy consolidation/atelectasis. Sputum culture less than 10 WBC, gram-positive cocci, yeast and hyphae, yeast ID request place on 04/18/21 Echocardiogram, normal EF with inconclusive diastolic parameters. Completed 7 days of ceftriaxone and 5 days of azithromycin. Sputum cultures no growth along with blood cultures. Nasal MRSA PCR negative. Respiratory status continued to worsen and eventually intubated for mechanical ventilatory support on 04/23/2021. Interval update:- Respiratory status remained relatively stable post ex intubation. Continue to remain critical on high ventilator settings. Slight improvement in oxygenation. Noted to have upper GI bleeding. Subcutaneous emphysema noted, progressively getting worse. No obvious evidence of pneumothorax on chest x-ray. Plan: -Intubated and sedated. Continue Versed and fentanyl. Deep sedation. -Continue mechanical ventilatory support. Improvement in oxygenation. Continue to remain on PEEP of 14, tidal volume of 4 6100% FiO2. Plateau pressures remain stable 28-30. Will wean FiO2 as tolerated. CT chest from yesterday showed signs of subcutaneous emphysema along with pneumomediastinum and dense bilateral lower lobe consolidation also noted. No pneumothorax noted. Tracheal aspirate growing gram-positive cocci. Continue Zosyn. Continue dexamethasone and baricitinib. Continue heparin drip for acute pulmonary embolism. Duo nebs Every 6 hours scheduled -Stable leukocytosis, slight improvement. Continue Zosyn. Continue to monitor. -Hemodynamically stable. Not on any pressors. -Abdomen soft nontender. Slight drop in hemoglobin. No acute intervention needed at this point of time. Continue PPI drip and heparin drip. -Renal function stable. We will closely monitor. - Continue mechanical ventilatory support - Continue AnalgoSedation with Versed and Fentanyl w
--- NOTE | 2021-04-25 09:52 | DIET.NUTRFU ---
Pt able to begin TF. TF at goal rate of 80 mL/hr of [facility] will provide 2790 kcals, 115 g protein, and 1444 mL h2o. Flush with 150 cc q4h = 900 cc in order to meet pt fluid needs. Hydration WNL as of 04/25.
--- NOTE | 2021-04-25 10:39 | HMH.ACPN2 ---
Internal Medicine - PN: Subj *Date: 04/25/21 *Time: 19:02 Interval history: 65-year-old male patient resting in bed quietly mechanically ventilated and sedated. No respiratory distress noted last night and patient appears comfortable today. Family discussion with and 2 other family members regarding patient transfer to under the care of Dr. Haley. states bed is available at if physician will call and speak to Dr. Haley. Call placed to Dr. Haley through Nevaeh Fine reports there is a long extended waiting list for [facility] and talking to Dr. Haley will not make a difference and Rody verbalizes Mr. Donald is on waiting list already. Situation explained to and other family members that even after Dr. Rodriguez attempted to talk to Dr. Haley, Rody states there are no open beds available at [facility] and there is a lengthy waiting list. Rody states that [facility] will do daily updates and check for medical status changes daily. Family then requests Mr. Donald be transferred to [facility] for the [facility] in [facility]. Call placed to Sinan at [facility] he reports [facility] does not have a waiting list and are not excepting patients except for cerebral aneurysms, aortic aneurysms, possible PCI's, or extensive traumas. Call then placed to the [facility], spoke with Ella who reports the [facility] is not excepting any COVID patients at this time due to lack of beds and lack of staffing. Family was updated of calls to [facility] and at the [facility] and lack of beds and verbalized understanding. Exam Vital signs and Labs for Last 24 Hours: Temp Pulse Resp BP Pulse Ox 98.6 F 89 31 H 126/69 98 04/25/21 04:00 04/25/21 08:00 04/25/21 09:36 04/25/21 07:00 04/25/21 09:36 Laboratory Results - last 24 hr 04/24/21 10:45: APTT 28.8 04/24/21 14:54: APTT 82.6 H* 04/24/21 17:01: APTT 74.0 H* 04/25/21 00:27: APTT 59.2 H* 04/25/21 05:45: WBC 18.5 H, RBC 4.17 L, Hgb 12.7 L, Hct 39.6 L, MCV 95.0 H, MCH 30.5, MCHC 32.2, RDW 13.9, Plt Count 310, MPV 9.1, Neut % (Auto) 95.4 H, Lymph % (Auto) 2.1 L, [place] % (Auto) 2.3, Eos % (Auto) 0.0 L, Baso % (Auto) 0.1, Neut # (Auto) 17.6 H, Lymph # (Auto) 0.4 L, [place] # (Auto) 0.4, Eos # (Auto) 0.0, Baso # (Auto) 0.0, Total Counted 100, Neutrophils % (Manual) 97 H, Lymphocytes % (Manual) 3 L, Platelet Estimate Normal, RBC Morphology Normal 04/25/21 05:45: Sodium 137, Potassium 4.1, Chloride 103, Carbon Dioxide 31 H, Anion Gap 7.1, BUN 28 H D, Creatinine 1.00 D, Estimated Creat Clear 107, Estimated GFR 75, Est GFR ( Amer) 90 D, Glucose 253 H, Calcium 7.8 L 04/25/21 06:00: ABG Lactate 1.8 04/25/21 07:43: Specimen Source Left radial, O2 % 100, ABG pH 7.34 L, ABG pCO2 52.1 H, ABG pO2 87.8, ABG HCO3 27.4 H, ABG Total CO2 29.0 H, ABG O2 Saturation 97, ABG Base Excess 1.6, Willian Test acceptable, Vent Rate 26, Tidal Volume 460, PEEP 14 04/25/21 07:45: APTT 60.9 H* I & O for Last 24 hours: Intake & Output 04/22/21 04/23/21 04/24/21 04/25/21 23:59 23:59 23:59 23:59 Intake Total 1509 / 1509 1549.625 / 4286.913 5753 / 1787 615 / 615 Output Total 1500 / 2500 2887 / 3000 2022 / 217 1150 / 1150 Balance 9 / -991 -1337.375 / -1427.375 -315 / -386 -535 / -535 Weight 235 lb 8 oz 232 lb 5.875 oz 234 lb 2.095 oz 232 lb 2.348 oz Microbiology Reports for the Last 24 Hours: Microbiology 04/23/21 12:20 Sputum - Endotracheal Tube Aspirate Gram Stain - Final 04/23/21 12:20 Sputum - Endotracheal Tube Aspirate Sputum Culture - Preliminary - Constitutional no acute distress - *Routine HEENT Exam Head: Present: normocephalic Eye: Present: EOMI ENT: Present: mucous membranes moist - *Routine Neck Exam Present: trachea midline. Absent: tracheal deviation - *Routine Respiratory Exam Present: patient mechanically ventilated, rhonchi,
--- NOTE | 2021-04-25 14:00 | PC.NURSE ---
tubefeeds started @ 20mL/hr with goal of 80mL/hr.
[2021-04-25 15:34] LABS: PTT Heparin (inpatient only) 42.2 Seconds (23.6-34.0)
--- NOTE | 2021-04-25 16:12 | PC.NURSE ---
notified pharmacy that PTT is 42.2.
[2021-04-25 23:04] LABS: PTT Heparin (inpatient only) 74.8 Seconds (23.6-34.0)
--- NOTE | 2021-04-25 23:07 | PC.NURSE ---
Addendum entered by Kiarra Alonso RN 04/25/21 23:08: heparin drip currently running at 2100units/hr Original Note: notified night watch of pt's aptt result of 74.8, no change to heparin drip needed at this time, night watch will put in next aptt order as aptt's have been therapeutic
[2021-04-26] VITALS (28 sets, daily range): BP systolic 118–154; BP diastolic 62–86; PULSE 78–116; RESP 26–33; TEMP 37–37.2; O2SAT 95–99; BMI 31.0
--- NOTE | 2021-04-26 06:00 | XR_ITS ---
PROCEDURE INFORMATION: Exam: XR Chest Exam date and time: 04/26/2021 6:00 AM Age: 65 years old Clinical indication: Device placement; Ett placement (vent status); Patient HX: Covid +; Additional info: Follow up intubation TECHNIQUE: Imaging protocol: XR of the chest. Views: 1 view. COMPARISON: CR XR CHEST PORTABLE 04/25/2021 4:51 AM FINDINGS: Tubes, catheters and devices: The ET tube nasogastric tube are in good position. Lungs: Patchy bilateral predominantly peripheral airspace disease is noted not significantly changed. Pleural spaces: Unremarkable. No pleural effusion. No pneumothorax. Heart/Mediastinum: Unremarkable. No cardiomegaly. Bones/joints: Unremarkable. Soft tissues: Extensive subcutaneous emphysema is again noted. IMPRESSION: Stable bilateral peripheral infiltrates. Stable lines and tubes.
[2021-04-26 06:27] LABS: Basophils % 0.3 % (0.1-2.0); Hemoglobin 12.3 g/dL (14.1-18.0); Lymphocytes # 0.4 K/mm3 (0.7-4.5); Lymphocytes % 3.2 % (10-50); Mean Corpuscular HGB Conc 31.6 g/dL (31.8-35.4); Mean Corpuscular Hemoglobin 30.4 pg (27.0-31.2); Mean Corpuscular Volume 96.2 fl (80-94); Mean Platelet Volume 9.3 fl (7.4-10.4); Monocytes # 0.4 K/mm3 (0.1-1.0); Monocytes % 2.9 % (1.7-9.3); Neutrophils # 12.7 K/mm3 (1.8-7.8); Neutrophils % 93.6 % (37.0-80.0); Platelet Count 314 K/mm3 (142-424); Red Blood Count 4.06 M/mm3 (4.60-6.20); Red Cell Distribution Width 13.7 % (11.5-17.5); White Blood Count 13.6 K/mm3 (4.8-10.8)
[2021-04-26 06:34] LABS: Alanine Aminotransferase 24 U/L (12-78); Albumin Level 2.7 g/dl (3.5-5.0); Albumin/Globulin Ratio 0.7 (1.1-1.8); Alkaline Phosphatase 166 U/L (38-126); Anion Gap 7.4 mEq/L (5-15); Aspartate Amino Transferase 39 U/L (17-59); Bilirubin,Total 0.4 mg/dl (0.2-1.3); Blood Urea Nitrogen 32 mg/dl (9-20); Carbon Dioxide 33 mmol/L (22.0-30.0); Chloride 104 mmol/L (98-107); Creatinine Clearance Estimated 108 mL/min (50-200); Estimated Glomerular Filt Rate 75 ml/min (>60); GFR (African American) 90 ML/MIN (>60); Globulin 3.7 g/dL (1.3-3.2); Glucose 307 mg/dl (74-100); Potassium 4.4 mmoL/L (3.5-5.1); Sodium 140 mmol/L (136-145); Total Protein,Serum 6.4 g/dl (6.3-8.2)
[2021-04-26 06:35] LABS: MANUAL DIFFERENTIAL MANUAL DIFFERENTIAL (MANUAL DIFF)
--- NOTE | 2021-04-26 06:48 | HMH.GSPN ---
Subjective Narrative: Per nursing, the patient has had no sign of significant blood loss via NG tube and his subcutaneous emphysema has not worsened. Progress Note: A&P (1) Pneumonia due to COVID-19 virus Status: Acute (2) Respiratory failure with hypoxia Status: Acute (3) Pulmonary embolism Status: Acute (4) Subcutaneous air Status: Acute Assessment and plan: No pneumothorax per chest x-ray or chest CT Assessment and Plan for All Diagnoses:: Continue management as per primary service and the critical care service. No urgent need for endoscopic evaluation with regard to recent nasogastric tube bloody aspirate As he does not have a pneumothorax the benefit of thoracostomy tube(s) would likely be very limited Exam Vital signs and Labs for Last 24 Hours: Temp Pulse Resp BP Pulse Ox 99.0 F 81 31 H 135/64 97 04/26/21 03:00 04/26/21 06:34 04/26/21 06:34 04/26/21 06:00 04/26/21 06:34 Laboratory Results - last 24 hr 04/25/21 05:45: WBC 18.5 H, RBC 4.17 L, Hgb 12.7 L, Hct 39.6 L, MCV 95.0 H, MCH 30.5, MCHC 32.2, RDW 13.9, Plt Count 310, MPV 9.1, Neut % (Auto) 95.4 H, Lymph % (Auto) 2.1 L, [place] % (Auto) 2.3, Eos % (Auto) 0.0 L, Baso % (Auto) 0.1, Neut # (Auto) 17.6 H, Lymph # (Auto) 0.4 L, [place] # (Auto) 0.4, Eos # (Auto) 0.0, Baso # (Auto) 0.0, Total Counted 100, Neutrophils % (Manual) 97 H, Lymphocytes % (Manual) 3 L, Platelet Estimate Normal, RBC Morphology Normal 04/25/21 05:45: Sodium 137, Potassium 4.1, Chloride 103, Carbon Dioxide 31 H, Anion Gap 7.1, BUN 28 H D, Creatinine 1.00 D, Estimated Creat Clear 107, Estimated GFR 75, Est GFR ( Amer) 90 D, Glucose 253 H, Calcium 7.8 L 04/25/21 06:00: ABG Lactate 1.8 04/25/21 07:43: Specimen Source Left radial, O2 % 100, ABG pH 7.34 L, ABG pCO2 52.1 H, ABG pO2 87.8, ABG HCO3 27.4 H, ABG Total CO2 29.0 H, ABG O2 Saturation 97, ABG Base Excess 1.6, Willian Test acceptable, Vent Rate 26, Tidal Volume 460, PEEP 14 04/25/21 07:45: APTT 60.9 H* 04/25/21 15:10: APTT 42.2 H 04/25/21 22:25: APTT 74.8 H* 04/26/21 05:30: WBC 13.6 H D, RBC 4.06 L, Hgb 12.3 L, Hct 39.0 L, MCV 96.2 H, MCH 30.4, MCHC 31.6 L, RDW 13.7, Plt Count 314, MPV 9.3, Neut % (Auto) 93.6 H, Lymph % (Auto) 3.2 L, [place] % (Auto) 2.9, Eos % (Auto) 0.0 L, Baso % (Auto) 0.3, Neut # (Auto) 12.7 H, Lymph # (Auto) 0.4 L, [place] # (Auto) 0.4, Eos # (Auto) 0.0, Baso # (Auto) 0.0 04/26/21 05:30: Sodium 140, Potassium 4.4, Chloride 104, Carbon Dioxide 33 H, Anion Gap 7.4, BUN 32 H, Creatinine 1.00, Estimated Creat Clear 108, Estimated GFR 75, Est GFR ( Amer) 90, Glucose 307 H D, Calcium 8.0 L, Total Bilirubin 0.4, AST 39, ALT 24, Alkaline Phosphatase 166 H, Total Protein 6.4, Albumin 2.7 L, Globulin 3.7 H, Albumin/Globulin Ratio 0.7 L I & O for Last 24 hours: Intake & Output 04/23/21 04/24/21 04/25/21 04/26/21 11:59 11:59 11:59 11:59 Intake Total 830 / 830 1582.625 / 8680.896 8915 / 2200 2913.167 / 2913.167 Output Total 2300 / 2300 2315 / 2365 2620 / 2745 2665 / 2665 Balance -1470 / -1470 -732.375 / -746.375 -420 / -545 248.167 / 248.167 Weight 232 lb 7 oz 234 lb 2.095 oz 232 lb 2.348 oz 234 lb 2.095 oz Microbiology Reports for the Last 24 Hours: Microbiology 04/23/21 12:20 Sputum - Endotracheal Tube Aspirate Gram Stain - Final 04/23/21 12:20 Sputum - Endotracheal Tube Aspirate Sputum Culture - Preliminary - Constitutional Comments: Sedated - *Routine Respiratory Exam Present: patient mechanically ventilated - *Routine Cardiovascular Exam Absent: tachycardia
[2021-04-26 07:19] LABS: PTT Heparin (inpatient only) 54.1 Seconds (23.6-34.0)
[2021-04-26 07:46] LABS: ABG Base Excess 2.4 mmol/L (-2.4-2.3); ABG HCO3 28.2 mmhg (22.0-26.0); ABG Oxygen Saturation 92 % (90-100); ABG PH 7.34 mmol/L (7.35-7.45); ABG TCO2 29.8 mmhg (23-27); Oxygen 80 %
[2021-04-26 07:47] LABS: Allen's Test acceptable; PEEP 14; Source Right Radial; Tidal Volume 460; Vent Rate 26
--- NOTE | 2021-04-26 07:47 | PC.NURSE ---
notified Dr. [place] [facility]
[2021-04-26 07:51] LABS: ABG PCO2 53.3 mmhg (35.0-45.0)
--- NOTE | 2021-04-26 07:57 | PC.NURSE ---
notified pharmacy (Angel) of PTT 54.1. He ordered to continue Heparin @ 2100units/hr.
[2021-04-26 08:57] LABS: Lymphocytes % 5 % (10-50); Neutrophils % 95 % (42-76); Platelet Estimate Normal; RBC Morphology Normal; Total Cells Counted 100
--- NOTE | 2021-04-26 09:32 | HMH.PULMPN ---
Internal Medicine - PN: Subj *Date: 04/26/21 *Time: 13:15 Interval history: No acute respiratory events overnight. Patient continued to be needing high ventilator support. Exam - Constitutional Constitutional:: Present: no acute distress, comfortable - HENMT Exam HENMT: Present: normocephalic, atraumatic - Eye Exam Eyes:: Present: normal appearance both eyes and related structures - Neck Exam Neck:: Present: normal visual inspection - Respiratory Exam Respiratory:: Present: respiratory distress, decreased breath sounds, rhonchi. Absent: wheezing - Cardiovascular Exam Cardiac:: Present: S1, S2 - GI Exam GI:: Present: soft - Skin Exam Skin: Present: warm, no rash - Neurological Exam Neurological: Absent: alert, awake, normal cognition - Extremities Exam Extremities: Present: no cyanosis, no clubbing, no edema Assessment and Plan (1) Pneumonia due to COVID-19 virus Status: Acute Category: Medical Code(s): U07.1 - COVID-19; J12.82 - Pneumonia due to coronavirus disease 2019 (2) Respiratory failure with hypoxia Status: Acute Qualifiers: Chronicity: acute Qualified Code(s): J96.01 - Acute respiratory failure with hypoxia Category: Medical Code(s): J96.91 - Respiratory failure, unspecified with hypoxia (3) Pulmonary embolism Status: Acute Qualifiers: Pulmonary embolism type: single subsegmental (without acute cor pulmonale) Qualified Code(s): I26.93 - Single subsegmental pulmonary embolism without acute cor pulmonale Category: Medical Code(s): I26.99 - Other pulmonary embolism without acute cor pulmonale (4) Subcutaneous air Status: Acute Category: Medical Code(s): T79.7XXA - Traumatic subcutaneous emphysema, initial encounter - Assessment and plan all Dx Assessment and Plan for all problems:: #Acute hypoxic respiratory failure #COVID-19 pneumonia: #Pulmonary embolus: 65-year-old male, no significant prior respiratory complaints, no significant smoking history. Not yet vaccinated for COVID-19 pneumonia. Present with worsening fatigue malaise and respiratory distress. CRP elevated at 140. D-dimer at 0.92. CTA showed right lower lobe pulmonary emboli showed bilateral diffuse groundglass opacities along with lower lobe patchy consolidation/atelectasis. Sputum culture less than 10 WBC, gram-positive cocci, yeast and hyphae, yeast ID request place on 04/18/21 Echocardiogram, normal EF with inconclusive diastolic parameters. Completed 7 days of ceftriaxone and 5 days of azithromycin. Sputum cultures no growth along with blood cultures. Nasal MRSA PCR negative. Respiratory status continued to worsen and eventually intubated for mechanical ventilatory support on 04/23/2021. Interval update:- Respiratory status remained relatively stable and critical post intubation. Continue to remain critical on high ventilator settings. Plan: -Intubated and sedated. Continue Versed and fentanyl. Deep sedation. -Continue mechanical ventilatory support. Continue to remain on PEEP of 14, tidal volume of 460, 80% FiO2. Plateau pressures remain stable 28-30. Will initiate proning protocol. X-ray stable. Physical examination worsening subcutaneous emphysema around neck. No evidence of pneumothorax on x-ray. Continue Zosyn. Nasal MRS PCR negative Continue dexamethasone and baricitinib. Continue heparin drip for acute pulmonary embolism. Duo nebs Every 6 hours scheduled -Improving leukocytosis. Continue Zosyn. -Hemodynamically stable. Not on any pressors. -Abdomen soft nontender. Stable Hb No acute intervention needed at this point of time. Continue heparin drip and continue PPI drip -Renal function stable. We will closely monitor. - Continue mechanical ventilatory support - Continue AnalgoSedation with Versed and Fentanyl with CPOT gal less than or euqal to 2 and RASS goal of 0 (Deep sedation) - VAP bundle Elevate head of the bed at 30 to 45 degrees Oral car
--- NOTE | 2021-04-26 09:40 | HMH.ACPN2 ---
Internal Medicine - PN: Subj *Date: 04/26/21 *Time: 08:20 Interval history: pt sedated. vent setting PEEP of 14, tidal volume of 460, 100% FiO2. Plateau pressures remain stable 28-30. tube feeding infusing Exam Vital signs and Labs for Last 24 Hours: Temp Pulse Resp BP Pulse Ox 98.8 F 90 33 H 136/75 96 04/26/21 08:00 04/26/21 08:00 04/26/21 08:00 04/26/21 08:00 04/26/21 08:00 Laboratory Results - last 24 hr 04/25/21 15:10: APTT 42.2 H 04/25/21 22:25: APTT 74.8 H* 04/26/21 05:30: WBC 13.6 H D, RBC 4.06 L, Hgb 12.3 L, Hct 39.0 L, MCV 96.2 H, MCH 30.4, MCHC 31.6 L, RDW 13.7, Plt Count 314, MPV 9.3, Neut % (Auto) 93.6 H, Lymph % (Auto) 3.2 L, [place] % (Auto) 2.9, Eos % (Auto) 0.0 L, Baso % (Auto) 0.3, Neut # (Auto) 12.7 H, Lymph # (Auto) 0.4 L, [place] # (Auto) 0.4, Eos # (Auto) 0.0, Baso # (Auto) 0.0, Total Counted 100, Neutrophils % (Manual) 95 H, Lymphocytes % (Manual) 5 L, Platelet Estimate Normal, RBC Morphology Normal 04/26/21 05:30: Sodium 140, Potassium 4.4, Chloride 104, Carbon Dioxide 33 H, Anion Gap 7.4, BUN 32 H, Creatinine 1.00, Estimated Creat Clear 108, Estimated GFR 75, Est GFR ( Amer) 90, Glucose 307 H D, Calcium 8.0 L, Total Bilirubin 0.4, AST 39, ALT 24, Alkaline Phosphatase 166 H, Total Protein 6.4, Albumin 2.7 L, Globulin 3.7 H, Albumin/Globulin Ratio 0.7 L 04/26/21 05:30: APTT 54.1 H* 04/26/21 07:15: Specimen Source Right radial, O2 % 80, ABG pH 7.34 L, ABG pCO2 53.3 H, ABG pO2 67.0 L, ABG HCO3 28.2 H, ABG Total CO2 29.8 H, ABG O2 Saturation 92, ABG Base Excess 2.4 H, Willian Test acceptable, Vent Rate 26, Tidal Volume 460, PEEP 14 I & O for Last 24 hours: Intake & Output 04/23/21 04/24/21 04/25/21 04/26/21 11:59 11:59 11:59 11:59 Intake Total 830 / 830 1582.625 / 7772.266 2653 / 2200 2913.167 / 2913.167 Output Total 2300 / 2300 2315 / 2365 2620 / 2745 2965 / 2965 Balance -1470 / -1470 -732.375 / -746.375 -420 / -545 -51.833 / -51.833 Weight 232 lb 7 oz 234 lb 2.095 oz 232 lb 2.348 oz 234 lb 2.095 oz Microbiology Reports for the Last 24 Hours: Microbiology 04/23/21 12:20 Sputum - Endotracheal Tube Aspirate Gram Stain - Final 04/23/21 12:20 Sputum - Endotracheal Tube Aspirate Sputum Culture - Preliminary - Constitutional no acute distress, chronically ill appearing - *Routine HEENT Exam Head: Present: normocephalic Eye: Present: PERRL ENT: Present: mucous membranes moist - *Routine Neck Exam Present: supple. Absent: lymphadenopathy Comments: sq air - *Routine Respiratory Exam Present: patient mechanically ventilated - *Routine Cardiovascular Exam Present: RRR - *Routine Abdominal Exam Present: soft, normoactive bowel sounds. Absent: tenderness - *Routine Extremities Exam Absent: cyanosis, clubbing, edema - *Routine Skin Exam Present: warm. Absent: rash - *Routine Neurological Exam sedated Assessment and Plan (1) Pneumonia due to COVID-19 virus Status: Acute Category: Medical Code(s): U07.1 - COVID-19; J12.82 - Pneumonia due to coronavirus disease 2019 (2) Respiratory failure with hypoxia Status: Acute Qualifiers: Chronicity: acute Qualified Code(s): J96.01 - Acute respiratory failure with hypoxia Category: Medical Code(s): J96.91 - Respiratory failure, unspecified with hypoxia (3) Pulmonary embolism Status: Acute Qualifiers: Pulmonary embolism type: single subsegmental (without acute cor pulmonale) Qualified Code(s): I26.93 - Single subsegmental pulmonary embolism without acute cor pulmonale Category: Medical Code(s): I26.99 - Other pulmonary embolism without acute cor pulmonale (4) Subcutaneous air Status: Acute Category: Medical Code(s): T79.7XXA - Traumatic subcutaneous emphysema, initial encounter - Assessment and plan all Dx Assessment and Plan for all problems:: Will wean FiO2 as tolerated. rounded with dr zurita all orders per dr zurita pulm consult still waiting on bed for
--- NOTE | 2021-04-26 11:41 | DIET.NUTRFU ---
RD spoke to nursing today, he is tolerating TF and plan to increase to 50ml/hr to provide 1725kcal and 72gm protein. Goal rate 80ml/hr to meet 100% needs with flush of Flush with 150cc q4h = 900cc. Reviewed Labs: Na 140, K 4.4, BUN 32H, Cr 1.0 and glucose at 307H. He is receiving steroid tx and dextrose mixed with his heparin which maybe affecting glucose levels. Will continue to monitor
[2021-04-26 11:50] LABS: POC Glucose,Bedside 309 (70-110)
[2021-04-26 13:11] LABS: ABG Base Excess 2.5 mmol/L (-2.4-2.3); ABG HCO3 28.3 mmhg (22.0-26.0); ABG Oxygen Saturation 96 % (90-100); ABG PH 7.34 mmol/L (7.35-7.45); ABG PO2 85.2 mmhg (80-100)
[2021-04-26 13:12] LABS: Oxygen 80 %; PEEP 14; Source A LINE; Tidal Volume 460; Vent Rate 26
[2021-04-26 13:13] LABS: ABG PCO2 54.2 mmhg (35.0-45.0)
--- NOTE | 2021-04-26 14:00 | PC.NURSE ---
pt now in prone position until tomorrow morning. Head and arms are to be repositioned Q4 hrs per Dr. Rosado. Pt tolerating prone position well.
[2021-04-26 15:21] LABS: PTT Heparin (inpatient only) 52.5 Seconds (23.6-34.0)
--- NOTE | 2021-04-26 15:35 | PC.NURSE ---
notified pharmacy ([facility]) that PTT 52.5. No new orders received. Will continue Heparin gtt @ 2100 units/hr
[2021-04-26 16:44] LABS: ABG Base Excess 6.6 mmol/L (-2.4-2.3); ABG HCO3 32.2 mmhg (22.0-26.0); ABG Oxygen Saturation 97 % (90-100); ABG PH 7.35 mmol/L (7.35-7.45); ABG PO2 101.6 mmhg (80-100)
[2021-04-26 16:46] LABS: ABG PCO2 59.3 mmhg (35.0-45.0); Allen's Test Patient Unable; Oxygen 80 %; PEEP 14; Tidal Volume 460; Vent Rate 26
--- NOTE | 2021-04-26 16:50 | PC.NURSE ---
notified Dr. Rosado of pCO2 59.
--- NOTE | 2021-04-26 18:54 | PC.NURSE ---
med surg camera is missing. I am unable to take a picture of pt's coccyx.
[2021-04-26 20:47] LABS: POC Glucose,Bedside 289 (70-110)
[2021-04-26 20:47] LABS: POC Glucose,Bedside 294 (70-110)
[2021-04-26 21:48] LABS: PTT Heparin (inpatient only) 61.1 Seconds (23.6-34.0)
--- NOTE | 2021-04-26 21:51 | PC.NURSE ---
[facility] contacted for PTT. No changes to heparin gtt. [facility] states they will put order in for PTT in AM.
--- NOTE | 2021-04-26 22:10 | PC.NURSE ---
RESP CARE NOTE: Pt repositioned while maintaining patency of the ET tube. Tube placement at 24 cm at the teeth on the right side.
[2021-04-27] VITALS (34 sets, daily range): BP systolic 112–197; BP diastolic 65–101; PULSE 65–93; RESP 26–29; TEMP 36.4–37.1; O2SAT 92–97; BMI 31.0
--- NOTE | 2021-04-27 02:28 | PC.NURSE ---
RESP CARE NOTE: Pt swimming repositioned, tube patency maintained and verified, all circuits and tubes stabilized. Tube resting on left and placement confirmed at 24cm at the teeth.
--- NOTE | 2021-04-27 04:23 | PC.NURSE ---
Spoke with [facility]. Updated on pt status. No bed available at this time.
--- NOTE | 2021-04-27 04:48 | PC.NURSE ---
Pt has been in prone position this shift per MD orders. Repositioning of extremities and head performed with RT assistance. Vent settings are as follows: AC, FiO2 80%, TV 460, R 26, PEEP 14. Pt has tolerated well this shift. VSS. Pt deeply sedated. Versed infusing @ 0.2 mcg/kg/hr. Fentanyl @ 100 mcg/hr, Heparin @ 2100 units/hr, Protonix @ 10 ml/hr. OG in place. F/C draining to bedside. Will continue to monitor.
--- NOTE | 2021-04-27 06:00 | XR_ITS ---
PROCEDURE INFORMATION: Exam: XR Chest Exam date and time: 04/27/2021 6:00 AM Age: 65 years old Clinical indication: Shortness of breath; Additional info: Follow up intubation// covid positive TECHNIQUE: Imaging protocol: XR of the chest. Views: 1 view. COMPARISON: CR XR CHEST PORTABLE 04/26/2021 3:35 AM FINDINGS: Tubes, catheters and devices: Tip of ET tube lies 5.3 cm from the tami. NG tube unchanged. Lungs: Scattered pulmonary opacities appear similar. Pleural spaces: No obvious pneumothorax or pleural effusion. Heart/Mediastinum: Pneumomediastinum again noted. Bones/joints: Degenerative changes of the spine. Soft tissues: Diffuse soft tissue emphysema is increasing throughout the chest bilaterally, again extending into the lower neck. IMPRESSION: Worsening soft tissue emphysema bilateral chest otherwise no significant change.
[2021-04-27 06:17] LABS: Basophils # 0.1 K/mm3 (0-0.2); Basophils % 0.9 % (0.1-2.0); Eosinophils % 0.1 % (0.1-12.0); Hematocrit 41.9 % (42.0-52.0); Hemoglobin 12.9 g/dL (14.1-18.0); Lymphocytes # 0.4 K/mm3 (0.7-4.5); Lymphocytes % 3.5 % (10-50); Mean Corpuscular HGB Conc 30.8 g/dL (31.8-35.4); Mean Corpuscular Hemoglobin 30.2 pg (27.0-31.2); Mean Corpuscular Volume 98.1 fl (80-94); Mean Platelet Volume 9.2 fl (7.4-10.4); Monocytes # 0.3 K/mm3 (0.1-1.0); Monocytes % 2.7 % (1.7-9.3); Neutrophils # 11.6 K/mm3 (1.8-7.8); Neutrophils % 92.8 % (37.0-80.0); Platelet Count 365 K/mm3 (142-424); Red Blood Count 4.27 M/mm3 (4.60-6.20); Red Cell Distribution Width 13.5 % (11.5-17.5); White Blood Count 12.5 K/mm3 (4.8-10.8)
[2021-04-27 06:21] LABS: MANUAL DIFFERENTIAL MANUAL DIFFERENTIAL (MANUAL DIFF)
[2021-04-27 06:26] LABS: Alanine Aminotransferase 26 U/L (12-78); Albumin/Globulin Ratio 0.7 (1.1-1.8); Alkaline Phosphatase 140 U/L (38-126); Anion Gap 7.4 mEq/L (5-15); Aspartate Amino Transferase 33 U/L (17-59); Bilirubin,Total 0.4 mg/dl (0.2-1.3); Blood Urea Nitrogen 41 mg/dl (9-20); Calcium 8.2 mg/dl (8.4-10.2); Carbon Dioxide 35 mmol/L (22.0-30.0); Chloride 105 mmol/L (98-107); Creatinine Clearance Estimated 108 mL/min (50-200); Estimated Glomerular Filt Rate 75 ml/min (>60); GFR (African American) 90 ML/MIN (>60); Globulin 4.2 g/dL (1.3-3.2); Glucose 282 mg/dl (74-100); Potassium 4.4 mmoL/L (3.5-5.1); Sodium 143 mmol/L (136-145); Total Protein,Serum 7.2 g/dl (6.3-8.2)
[2021-04-27 06:27] LABS: Lymphocytes % 5 % (10-50); Monocytes % 1 % (2-9); Neutrophils % 88 % (42-76); Total Cells Counted 100
[2021-04-27 06:28] LABS: Hypochromasia 1+; Macrocytosis 1+; Platelet Estimate Normal
[2021-04-27 06:47] LABS: PTT Heparin (inpatient only) 78.7 Seconds (23.6-34.0)
--- NOTE | 2021-04-27 06:57 | PC.NURSE ---
Contacted [facility] about PTT this AM. 78.7. Decrease to 2000 units/hr. [facility] states they will put in order for next PTT.
[2021-04-27 08:14] LABS: ABG Base Excess 6.1 mmol/L (-2.4-2.3); ABG HCO3 32.2 mmhg (22.0-26.0); ABG Oxygen Saturation 99 % (90-100); ABG PH 7.32 mmol/L (7.35-7.45); ABG PO2 131.3 mmhg (80-100); ABG TCO2 34.1 mmhg (23-27)
[2021-04-27 08:16] LABS: Oxygen 80 %; PEEP 14; Tidal Volume 460; Vent Rate 26
[2021-04-27 08:17] LABS: ABG PCO2 63.9 mmhg (35.0-45.0); Lactate Arterial 1.4 mmol/L (0.4-2.0)
--- NOTE | 2021-04-27 08:40 | PC.NURSE ---
Patient placed on his back at this time, tolerated well, will prone again this afternoon per MD order.
--- NOTE | 2021-04-27 10:01 | HMH.GSPN ---
Subjective Narrative: Per nursing staff patient has no significant blood per NG. Persistent subcutaneous emphysema. Progress Note: A&P (1) Pneumonia due to COVID-19 virus Status: Acute (2) Respiratory failure with hypoxia Status: Acute (3) Pulmonary embolism Status: Acute (4) Subcutaneous air Status: Acute Assessment and plan: Chest x-ray reveals subcutaneous emphysema without pneumothorax. No need for chest tube at this time. Assessment and Plan for All Diagnoses:: Hemoglobin stable. No appreciable evidence of blood per NG. Exam Vital signs and Labs for Last 24 Hours: Temp Pulse Resp BP Pulse Ox 97.6 F 71 26 H 141/89 H 95 04/27/21 04:00 04/27/21 08:00 04/27/21 08:00 04/27/21 08:00 04/27/21 08:00 Laboratory Results - last 24 hr 04/26/21 11:21: POC Glucose 309 H* 04/26/21 13:08: Specimen Source A line, O2 % 80, ABG pH 7.34 L, ABG pCO2 54.2 H, ABG pO2 85.2, ABG HCO3 28.3 H, ABG Total CO2 30.0 H, ABG O2 Saturation 96, ABG Base Excess 2.5 H, Willian Test N/a, Vent Rate 26, Tidal Volume 460, PEEP 14 04/26/21 14:37: APTT 52.5 H* 04/26/21 16:41: Specimen Source A line, O2 % 80, ABG pH 7.35, ABG pCO2 59.3 H, ABG pO2 101.6 H, ABG HCO3 32.2 H, ABG Total CO2 34.0 H, ABG O2 Saturation 97, ABG Base Excess 6.6 H, Willian Test Patient unable, Vent Rate 26, Tidal Volume 460, PEEP 14 04/26/21 16:50: POC Glucose 289 H 04/26/21 20:34: POC Glucose 294 H 04/26/21 21:10: APTT 61.1 H* 04/27/21 06:00: WBC 12.5 H, RBC 4.27 L, Hgb 12.9 L, Hct 41.9 L, MCV 98.1 H, MCH 30.2, MCHC 30.8 L, RDW 13.5, Plt Count 365, MPV 9.2, Neut % (Auto) 92.8 H, Lymph % (Auto) 3.5 L, [place] % (Auto) 2.7, Eos % (Auto) 0.1, Baso % (Auto) 0.9, Neut # (Auto) 11.6 H, Lymph # (Auto) 0.4 L, [place] # (Auto) 0.3, Eos # (Auto) 0.0, Baso # (Auto) 0.1, Total Counted 100, Neutrophils % (Manual) 88 H, Band Neutrophils % 6.0, Lymphocytes % (Manual) 5 L, Monocytes % (Manual) 1 L, Platelet Estimate Normal, Hypochromasia 1+, Macrocytosis 1+ 04/27/21 06:00: Sodium 143, Potassium 4.4, Chloride 105, Carbon Dioxide 35 H, Anion Gap 7.4, BUN 41 H D, Creatinine 1.00, Estimated Creat Clear 108, Estimated GFR 75, Est GFR ( Amer) 90, Glucose 282 H, Calcium 8.2 L, Total Bilirubin 0.4, AST 33, ALT 26, Alkaline Phosphatase 140 H, Total Protein 7.2, Albumin 3.0 L D, Globulin 4.2 H, Albumin/Globulin Ratio 0.7 L 04/27/21 06:00: APTT 78.7 H* 04/27/21 06:00: Specimen Source a line, O2 % 80, ABG pH 7.32 L, ABG pCO2 63.9 H, ABG pO2 131.3 H, ABG HCO3 32.2 H, ABG Total CO2 34.1 H, ABG O2 Saturation 99, ABG Base Excess 6.1 H, ABG Lactate 1.4, Vent Rate 26, Tidal Volume 460, PEEP 14 I & O for Last 24 hours: Intake & Output 04/24/21 04/25/21 04/26/21 04/27/21 11:59 11:59 11:59 11:59 Intake Total 1582.625 / 5229.444 9427 / 2200 3133.167 / 3133.167 3015.5 / 3015.5 Output Total 2315 / 2365 2620 / 2745 3300 / 3400 1954 / 1954 Balance -732.375 / -746.375 -420 / -545 -166.833 / -752.253 3517.5 / 1060.5 Weight 234 lb 2.095 oz 232 lb 2.348 oz 234 lb 2.095 oz 234 lb Microbiology Reports for the Last 24 Hours: Microbiology 04/23/21 12:20 Sputum - Endotracheal Tube Aspirate Gram Stain - Final 04/23/21 12:20 Sputum - Endotracheal Tube Aspirate Sputum Culture - Preliminary
--- NOTE | 2021-04-27 10:06 | HMH.ACPN2 ---
Internal Medicine - PN: Subj *Date: 04/27/21 *Time: 10:06 Interval history: Staff relays a fairly uneventful night. Patient has been proning successfully. His regimen remains unchanged, he remains on a heparin drip. Vent settings are reviewed and managed per Dr. Cora Hobbs. Chest imaging shows increased subcu air. Patient remains heavily sedated appears comfortable is present in the room. He remains on a waiting list at several [facility]. So far there is no bed availability Exam Vital signs and Labs for Last 24 Hours: Temp Pulse Resp BP Pulse Ox 97.6 F 71 26 H 141/89 H 95 04/27/21 04:00 04/27/21 08:00 04/27/21 08:00 04/27/21 08:00 04/27/21 08:00 Laboratory Results - last 24 hr 04/26/21 11:21: POC Glucose 309 H* 04/26/21 13:08: Specimen Source A line, O2 % 80, ABG pH 7.34 L, ABG pCO2 54.2 H, ABG pO2 85.2, ABG HCO3 28.3 H, ABG Total CO2 30.0 H, ABG O2 Saturation 96, ABG Base Excess 2.5 H, Willian Test N/a, Vent Rate 26, Tidal Volume 460, PEEP 14 04/26/21 14:37: APTT 52.5 H* 04/26/21 16:41: Specimen Source A line, O2 % 80, ABG pH 7.35, ABG pCO2 59.3 H, ABG pO2 101.6 H, ABG HCO3 32.2 H, ABG Total CO2 34.0 H, ABG O2 Saturation 97, ABG Base Excess 6.6 H, Willian Test Patient unable, Vent Rate 26, Tidal Volume 460, PEEP 14 04/26/21 16:50: POC Glucose 289 H 04/26/21 20:34: POC Glucose 294 H 04/26/21 21:10: APTT 61.1 H* 04/27/21 06:00: WBC 12.5 H, RBC 4.27 L, Hgb 12.9 L, Hct 41.9 L, MCV 98.1 H, MCH 30.2, MCHC 30.8 L, RDW 13.5, Plt Count 365, MPV 9.2, Neut % (Auto) 92.8 H, Lymph % (Auto) 3.5 L, [place] % (Auto) 2.7, Eos % (Auto) 0.1, Baso % (Auto) 0.9, Neut # (Auto) 11.6 H, Lymph # (Auto) 0.4 L, [place] # (Auto) 0.3, Eos # (Auto) 0.0, Baso # (Auto) 0.1, Total Counted 100, Neutrophils % (Manual) 88 H, Band Neutrophils % 6.0, Lymphocytes % (Manual) 5 L, Monocytes % (Manual) 1 L, Platelet Estimate Normal, Hypochromasia 1+, Macrocytosis 1+ 04/27/21 06:00: Sodium 143, Potassium 4.4, Chloride 105, Carbon Dioxide 35 H, Anion Gap 7.4, BUN 41 H D, Creatinine 1.00, Estimated Creat Clear 108, Estimated GFR 75, Est GFR ( Amer) 90, Glucose 282 H, Calcium 8.2 L, Total Bilirubin 0.4, AST 33, ALT 26, Alkaline Phosphatase 140 H, Total Protein 7.2, Albumin 3.0 L D, Globulin 4.2 H, Albumin/Globulin Ratio 0.7 L 04/27/21 06:00: APTT 78.7 H* 04/27/21 06:00: Specimen Source a line, O2 % 80, ABG pH 7.32 L, ABG pCO2 63.9 H, ABG pO2 131.3 H, ABG HCO3 32.2 H, ABG Total CO2 34.1 H, ABG O2 Saturation 99, ABG Base Excess 6.1 H, ABG Lactate 1.4, Vent Rate 26, Tidal Volume 460, PEEP 14 I & O for Last 24 hours: Intake & Output 04/24/21 04/25/21 04/26/21 04/27/21 23:59 23:59 23:59 23:59 Intake Total 1708 / 1787 2664.167 / 2664.167 3607 / 3705 812.5 / 812.5 Output Total 2022 3005 / 3180 3175 / 3265 500 / 500 Balance -315 / -386 -340.833 / -515.833 432 / 440 312.5 / 312.5 Weight 234 lb 2.095 oz 232 lb 2.348 oz 234 lb 2.095 oz 234 lb Microbiology Reports for the Last 24 Hours: Microbiology 04/23/21 12:20 Sputum - Endotracheal Tube Aspirate Gram Stain - Final 04/23/21 12:20 Sputum - Endotracheal Tube Aspirate Sputum Culture - Preliminary - Constitutional obtunded - *Routine HEENT Exam Head: Present: normocephalic Eye: Present: EOMI, PERRL ENT: Present: mucous membranes moist - *Routine Neck Exam Present: supple. Absent: lymphadenopathy - *Routine Respiratory Exam Present: patient mechanically ventilated - *Routine Cardiovascular Exam Present: RRR - *Routine Abdominal Exam Present: soft, normoactive bowel sounds. Absent: tenderness - *Routine Extremities Exam Absent: cyanosis, clubbing, edema - *Routine Skin Exam Present: warm. Absent: rash - *Routine Neurological Exam Absent: alert Assessment and Plan (1) Pneumonia due to COVID-19 virus Status: Acute Category: Medical Code(s): U07.1 - COVID-19; J12.82 - Pneumonia due to coronavirus disease 2019 (2) Respiratory failure with hypoxia Status: Acute
[2021-04-27 11:05] LABS: ABG Base Excess 7.8 mmol/L (-2.4-2.3); ABG Oxygen Saturation 98 % (90-100); ABG PH 7.31 mmol/L (7.35-7.45); ABG PO2 114.7 mmhg (80-100); ABG TCO2 36.2 mmhg (23-27)
[2021-04-27 11:09] LABS: Oxygen 80 %; PEEP 14; Source A LINE; Tidal Volume 460; Vent Rate 26
[2021-04-27 11:10] LABS: ABG PCO2 69.3 mmhg (35.0-45.0)
[2021-04-27 12:42] LABS: POC Glucose,Bedside 243 (70-110)
[2021-04-27 14:21] LABS: PTT Heparin (inpatient only) 83.1 Seconds (23.6-34.0)
--- NOTE | 2021-04-27 16:14 | PC.NURSE ---
Patient placed in prone position at this time, patient tolerated well. Will remain in prone position until in the morning per MD order
[2021-04-27 17:11] LABS: POC Glucose,Bedside 236 (70-110)
[2021-04-27 21:43] LABS: PTT Heparin (inpatient only) 65.6 Seconds (23.6-34.0)
--- NOTE | 2021-04-27 21:45 | PC.NURSE ---
[facility] contacted to report PTT. No changes to heparin gtt. Next ptt at 0400.
[2021-04-28] VITALS (33 sets, daily range): BP systolic 122–161; BP diastolic 71–94; PULSE 77–103; RESP 22–30; TEMP 36.3–36.9; O2SAT 92–99; BMI 30.1
--- NOTE | 2021-04-28 00:23 | PC.NURSE ---
MD Carrasquillo consulted over pt's BP. Pt is currently maxed on Levophed. Sedation is low. Propofol is infusing @ 20 mcg/kg/min. Fentanyl is infusing @ 20 mcg/hr. Levophed infusing @ 30 mcg/min. New orders received. If pt does not maintain pressure, to start pt on Dopamine gtt with goal of SBP over 95.
[2021-04-28 04:31] LABS: Basophils % 0.3 % (0.1-2.0); Eosinophils % 0.3 % (0.1-12.0); Hematocrit 38.5 % (42.0-52.0); Hemoglobin 12.2 g/dL (14.1-18.0); Lymphocytes # 0.8 K/mm3 (0.7-4.5); Lymphocytes % 6.8 % (10-50); Mean Corpuscular HGB Conc 31.8 g/dL (31.8-35.4); Mean Corpuscular Hemoglobin 30.4 pg (27.0-31.2); Mean Corpuscular Volume 95.6 fl (80-94); Mean Platelet Volume 9.4 fl (7.4-10.4); Monocytes # 0.4 K/mm3 (0.1-1.0); Monocytes % 2.8 % (1.7-9.3); Neutrophils # 11.2 K/mm3 (1.8-7.8); Neutrophils % 89.8 % (37.0-80.0); Platelet Count 360 K/mm3 (142-424); Red Blood Count 4.02 M/mm3 (4.60-6.20); Red Cell Distribution Width 13.5 % (11.5-17.5); White Blood Count 12.5 K/mm3 (4.8-10.8)
[2021-04-28 04:38] LABS: Chloride 107 mmol/L (98-107); MANUAL DIFFERENTIAL MANUAL DIFFERENTIAL (MANUAL DIFF); Potassium 4.3 mmoL/L (3.5-5.1); Sodium 144 mmol/L (136-145)
[2021-04-28 04:41] LABS: Alanine Aminotransferase 28 U/L (12-78); Albumin Level 2.7 g/dl (3.5-5.0); Albumin/Globulin Ratio 0.7 (1.1-1.8); Alkaline Phosphatase 125 U/L (38-126); Anion Gap 3.3 mEq/L (5-15); Aspartate Amino Transferase 49 U/L (17-59); Bilirubin,Total 0.3 mg/dl (0.2-1.3); Blood Urea Nitrogen 43 mg/dl (9-20); Calcium 7.8 mg/dl (8.4-10.2); Carbon Dioxide 38 mmol/L (22.0-30.0); Creatinine Clearance Estimated 108 mL/min (50-200); Estimated Glomerular Filt Rate 84 ml/min (>60); GFR (African American) 102 ML/MIN (>60); Globulin 3.9 g/dL (1.3-3.2); Glucose 183 mg/dl (74-100); Total Protein,Serum 6.6 g/dl (6.3-8.2)
[2021-04-28 04:47] LABS: PTT Heparin (inpatient only) 68.3 Seconds (23.6-34.0)
--- NOTE | 2021-04-28 04:53 | PC.NURSE ---
[facility] contacted for aPTT. No changes to Heparin gtt. Pt has remained stable . VSS. No changes to vent settings. Pt has remained in prone position. [facility] called and was updated on pt. No bed available.
[2021-04-28 05:31] LABS: Lymphocytes % 8 % (10-50); Monocytes % 1 % (2-9); Neutrophils % 86 % (42-76); Platelet Estimate Normal; Total Cells Counted 100
[2021-04-28 05:32] LABS: Hypochromasia 1+; Rouleaux 3+
--- NOTE | 2021-04-28 06:00 | XR_ITS ---
PROCEDURE INFORMATION: Exam: XR Chest Exam date and time: 04/28/2021 6:00 AM Age: 65 years old Clinical indication: Shortness of breath; Additional info: Follow up intubation// covid positive TECHNIQUE: Imaging protocol: XR of the chest. Views: 1 view. COMPARISON: CR XR CHEST PORTABLE 04/27/2021 9:04 AM FINDINGS: Tubes, catheters and devices: There is an endotracheal tube in place, the tip which projects 6.9 cm above the tami. The full course of the nasogastric tube is not clearly defined on the current radiograph. Lungs: There is no significant change in multifocal airspace opacities both lungs. Pleural spaces: Unremarkable. No pleural effusion. No pneumothorax. Heart/Mediastinum: Unremarkable. No cardiomegaly. Bones/joints: Unremarkable. Soft tissues: Extensive subcutaneous emphysema is again demonstrated. IMPRESSION: 1. No significant change in multifocal pneumonia. 2. Nonvisualization of the course of the NG tube.
[2021-04-28 06:40] LABS: POC Glucose,Bedside 183 (70-110)
[2021-04-28 06:40] LABS: POC Glucose,Bedside 254 (70-110)
--- NOTE | 2021-04-28 07:28 | HMH.GSPN ---
Subjective Narrative: Per nursing patient has issues with tube feeds when prone position. No evidence of any clinical bleeding. Progress Note: A&P (1) Pneumonia due to COVID-19 virus Status: Acute (2) Respiratory failure with hypoxia Status: Acute (3) Pulmonary embolism Status: Acute (4) Subcutaneous air Status: Acute Assessment and Plan for All Diagnoses:: No clinical evidence of bleeding. Hemoglobin stable. Chest x-ray to be done later when patient is no longer prone Exam Vital signs and Labs for Last 24 Hours: Temp Pulse Resp BP Pulse Ox 98.7 F 82 27 H 126/68 97 04/27/21 16:00 04/28/21 06:21 04/27/21 21:56 04/27/21 18:14 04/27/21 21:56 Laboratory Results - last 24 hr 04/27/21 05:47: POC Glucose 243 H 04/27/21 06:00: Specimen Source a line, O2 % 80, ABG pH 7.32 L, ABG pCO2 63.9 H, ABG pO2 131.3 H, ABG HCO3 32.2 H, ABG Total CO2 34.1 H, ABG O2 Saturation 99, ABG Base Excess 6.1 H, ABG Lactate 1.4, Vent Rate 26, Tidal Volume 460, PEEP 14 04/27/21 11:02: Specimen Source A line, O2 % 80, ABG pH 7.31 L, ABG pCO2 69.3 H, ABG pO2 114.7 H, ABG HCO3 34.0 H, ABG Total CO2 36.2 H, ABG O2 Saturation 98, ABG Base Excess 7.8 H, Vent Rate 26, Tidal Volume 460, PEEP 14 04/27/21 11:24: POC Glucose 254 H 04/27/21 13:10: APTT 83.1 H* 04/27/21 17:04: POC Glucose 236 H 04/27/21 20:19: POC Glucose 183 H 04/27/21 21:00: APTT 65.6 H* 04/28/21 04:22: WBC 12.5 H, RBC 4.02 L, Hgb 12.2 L, Hct 38.5 L, MCV 95.6 H, MCH 30.4, MCHC 31.8, RDW 13.5, Plt Count 360, MPV 9.4, Neut % (Auto) 89.8 H, Lymph % (Auto) 6.8 L, [place] % (Auto) 2.8, Eos % (Auto) 0.3, Baso % (Auto) 0.3, Neut # (Auto) 11.2 H, Lymph # (Auto) 0.8, [place] # (Auto) 0.4, Eos # (Auto) 0.0, Baso # (Auto) 0.0, Total Counted 100, Neutrophils % (Manual) 86 H, Band Neutrophils % 5.0, Lymphocytes % (Manual) 8 L, Monocytes % (Manual) 1 L, Platelet Estimate Normal, Hypochromasia 1+, [place] 3+ 04/28/21 04:22: Sodium 144, Potassium 4.3, Chloride 107, Carbon Dioxide 38 H, Anion Gap 3.3 L, BUN 43 H, Creatinine 0.90, Estimated Creat Clear 108, Estimated GFR 84, Est GFR ( Amer) 102, Glucose 183 H D, Calcium 7.8 L, Total Bilirubin 0.3, AST 49 D, ALT 28, Alkaline Phosphatase 125, Total Protein 6.6, Albumin 2.7 L, Globulin 3.9 H, Albumin/Globulin Ratio 0.7 L 04/28/21 04:22: APTT 68.3 H* I & O for Last 24 hours: Intake & Output 04/25/21 04/26/21 04/27/21 04/28/21 11:59 11:59 11:59 11:59 Intake Total 2200 / 2200 3133.167 / 3133.167 3605.5 / 3669.5 1749.167 / 1749.167 Output Total 2620 / 2745 3300 / 3400 2245 / 2320 1585 / 1585 Balance -420 / -545 -166.833 / -182.902 6263.5 / 1349.5 164.167 / 164.167 Weight 232 lb 2.348 oz 234 lb 2.095 oz 234 lb 227 lb 8.273 oz Microbiology Reports for the Last 24 Hours: Microbiology 04/23/21 12:20 Sputum - Endotracheal Tube Aspirate Gram Stain - Final 04/23/21 12:20 Sputum - Endotracheal Tube Aspirate Sputum Culture - Preliminary Narrative: Subcu air stable
[2021-04-28 08:04] LABS: ABG Base Excess 9.2 mmol/L (-2.4-2.3); ABG HCO3 34.5 mmhg (22.0-26.0); ABG Oxygen Saturation 98 % (90-100); ABG PH 7.37 mmol/L (7.35-7.45); ABG PO2 97.5 mmhg (80-100); ABG TCO2 36.4 mmhg (23-27); Lactate Arterial 1.6 mmol/L (0.4-2.0)
[2021-04-28 08:07] LABS: ABG PCO2 61.1 mmhg (35.0-45.0); Allen's Test Patient Unable; Oxygen 75 %; PEEP 14; Tidal Volume 460; Vent Rate 26
--- NOTE | 2021-04-28 09:35 | HMH.ACPN2 ---
Internal Medicine - PN: Subj *Date: 04/28/21 *Time: 09:38 Interval history: Staff relays an uneventful night. He has been proning. Settings remain unchanged. Dr Rosado giving 40 lasix iv this morning. We were contacted this morning by shows an [employer]. Continue to be long waiting lists. Subcutaneous air is stable. He is followed by general surgery actively Exam Vital signs and Labs for Last 24 Hours: Temp Pulse Resp BP Pulse Ox 98.3 F 87 26 H 147/81 H 93 L 04/28/21 09:31 04/28/21 07:00 04/28/21 07:00 04/28/21 07:00 04/28/21 07:00 Laboratory Results - last 24 hr 04/27/21 05:47: POC Glucose 243 H 04/27/21 11:02: Specimen Source A line, O2 % 80, ABG pH 7.31 L, ABG pCO2 69.3 H, ABG pO2 114.7 H, ABG HCO3 34.0 H, ABG Total CO2 36.2 H, ABG O2 Saturation 98, ABG Base Excess 7.8 H, Vent Rate 26, Tidal Volume 460, PEEP 14 04/27/21 11:24: POC Glucose 254 H 04/27/21 13:10: APTT 83.1 H* 04/27/21 17:04: POC Glucose 236 H 04/27/21 20:19: POC Glucose 183 H 04/27/21 21:00: APTT 65.6 H* 04/28/21 04:22: WBC 12.5 H, RBC 4.02 L, Hgb 12.2 L, Hct 38.5 L, MCV 95.6 H, MCH 30.4, MCHC 31.8, RDW 13.5, Plt Count 360, MPV 9.4, Neut % (Auto) 89.8 H, Lymph % (Auto) 6.8 L, [place] % (Auto) 2.8, Eos % (Auto) 0.3, Baso % (Auto) 0.3, Neut # (Auto) 11.2 H, Lymph # (Auto) 0.8, [place] # (Auto) 0.4, Eos # (Auto) 0.0, Baso # (Auto) 0.0, Total Counted 100, Neutrophils % (Manual) 86 H, Band Neutrophils % 5.0, Lymphocytes % (Manual) 8 L, Monocytes % (Manual) 1 L, Platelet Estimate Normal, Hypochromasia 1+, Rouleaux 3+ 04/28/21 04:22: Sodium 144, Potassium 4.3, Chloride 107, Carbon Dioxide 38 H, Anion Gap 3.3 L, BUN 43 H, Creatinine 0.90, Estimated Creat Clear 108, Estimated GFR 84, Est GFR ( Amer) 102, Glucose 183 H D, Calcium 7.8 L, Total Bilirubin 0.3, AST 49 D, ALT 28, Alkaline Phosphatase 125, Total Protein 6.6, Albumin 2.7 L, Globulin 3.9 H, Albumin/Globulin Ratio 0.7 L 04/28/21 04:22: APTT 68.3 H* 04/28/21 06:00: Specimen Source A line, O2 % 75, ABG pH 7.37, ABG pCO2 61.1 H, ABG pO2 97.5, ABG HCO3 34.5 H, ABG Total CO2 36.4 H, ABG O2 Saturation 98, ABG Base Excess 9.2 H, Willian Test Patient unable, ABG Lactate 1.6, Vent Rate 26, Tidal Volume 460, PEEP 14 I & O for Last 24 hours: Intake & Output 04/25/21 04/26/21 04/27/21 04/28/21 23:59 23:59 23:59 23:59 Intake Total 2664.167 / 2664.167 3607 / 3705 3221.5 / 3402.5 568.167 / 568.167 Output Total 3005 / 3180 3175 / 3265 1900 / 2125 1235 / 1235 Balance -340.833 / -515.833 432 / 440 1321.5 / 1277.5 -666.833 / -666.833 Weight 232 lb 2.348 oz 234 lb 2.095 oz 234 lb 227 lb 8.273 oz Microbiology Reports for the Last 24 Hours: Microbiology 04/23/21 12:20 Sputum - Endotracheal Tube Aspirate Gram Stain - Final 04/23/21 12:20 Sputum - Endotracheal Tube Aspirate Sputum Culture - Preliminary - Constitutional obtunded - *Routine HEENT Exam Head: Present: normocephalic Eye: Present: EOMI, PERRL ENT: Present: mucous membranes moist - *Routine Neck Exam Present: supple. Absent: lymphadenopathy - *Routine Respiratory Exam Present: patient mechanically ventilated - *Routine Cardiovascular Exam Present: RRR - *Routine Abdominal Exam Present: soft - *Routine Extremities Exam Absent: cyanosis, clubbing, edema - *Routine Skin Exam Present: warm. Absent: rash - *Routine Neurological Exam Absent: alert, normal speech Assessment and Plan (1) Pneumonia due to COVID-19 virus Status: Acute Category: Medical Code(s): U07.1 - COVID-19; J12.82 - Pneumonia due to coronavirus disease 2019 (2) Respiratory failure with hypoxia Status: Acute Qualifiers: Chronicity: acute Qualified Code(s): J96.01 - Acute respiratory failure with hypoxia Category: Medical Code(s): J96.91 - Respiratory failure, unspecified with hypoxia (3) Pulmonary embolism Status: Acute Qualifiers: Pulmonary embolism type: single subsegmental (without acute cor pulmonale)
--- NOTE | 2021-04-28 09:45 | PC.NURSE ---
Patient placed in on his back at this time, tolerated well.
[2021-04-28 12:38] LABS: ABG Base Excess 9.5 mmol/L (-2.4-2.3); ABG HCO3 33.6 mmhg (22.0-26.0); ABG Oxygen Saturation 98 % (90-100); ABG PH 7.44 mmol/L (7.35-7.45); ABG PO2 95.5 mmhg (80-100); ABG TCO2 35.1 mmhg (23-27)
[2021-04-28 12:39] LABS: Allen's Test Patient Unable; Oxygen 75 %; PEEP 14; Tidal Volume 460; Vent Rate 26
[2021-04-28 12:40] LABS: ABG PCO2 50.2 mmhg (35.0-45.0)
[2021-04-28 17:42] LABS: POC Glucose,Bedside 288 (70-110)
--- NOTE | 2021-04-28 18:00 | PC.NURSE ---
1630- Patient placed in prone position at this time, patient tolerated well.
[2021-04-28 20:14] LABS: POC Glucose,Bedside 175 (70-110)
[2021-04-28 20:14] LABS: POC Glucose,Bedside 231 (70-110)
[2021-04-29] VITALS (44 sets, daily range): BP systolic 112–180; BP diastolic 63–94; PULSE 88–135; RESP 27–32; TEMP 36.6–37.1; O2SAT 9–99; BMI 30.1
[2021-04-29 06:26] LABS: Basophils # 0.1 K/mm3 (0-0.2); Basophils % 0.7 % (0.1-2.0); Eosinophils # 0.1 K/mm3 (0.0-0.4); Eosinophils % 0.9 % (0.1-12.0); Hematocrit 36.6 % (42.0-52.0); Hemoglobin 11.7 g/dL (14.1-18.0); Lymphocytes # 0.9 K/mm3 (0.7-4.5); Lymphocytes % 5.8 % (10-50); Mean Corpuscular HGB Conc 31.9 g/dL (31.8-35.4); Mean Corpuscular Hemoglobin 30.3 pg (27.0-31.2); Mean Corpuscular Volume 94.8 fl (80-94); Mean Platelet Volume 9.3 fl (7.4-10.4); Monocytes # 0.3 K/mm3 (0.1-1.0); Neutrophils # 13.2 K/mm3 (1.8-7.8); Neutrophils % 90.5 % (37.0-80.0); Platelet Count 477 K/mm3 (142-424); Red Blood Count 3.86 M/mm3 (4.60-6.20); Red Cell Distribution Width 13.6 % (11.5-17.5); White Blood Count 14.6 K/mm3 (4.8-10.8)
[2021-04-29 06:31] LABS: Alanine Aminotransferase 36 U/L (12-78); Albumin Level 2.8 g/dl (3.5-5.0); Albumin/Globulin Ratio 0.8 (1.1-1.8); Alkaline Phosphatase 104 U/L (38-126); Anion Gap 5.3 mEq/L (5-15); Aspartate Amino Transferase 48 U/L (17-59); Bilirubin,Total 0.4 mg/dl (0.2-1.3); Blood Urea Nitrogen 47 mg/dl (9-20); Calcium 8.1 mg/dl (8.4-10.2); Carbon Dioxide 40 mmol/L (22.0-30.0); Chloride 101 mmol/L (98-107); Creatinine Clearance Estimated 105 mL/min (50-200); Estimated Glomerular Filt Rate 84 ml/min (>60); GFR (African American) 102 ML/MIN (>60); Globulin 3.6 g/dL (1.3-3.2); Glucose 213 mg/dl (74-100); Potassium 4.3 mmoL/L (3.5-5.1); Sodium 142 mmol/L (136-145); Total Protein,Serum 6.4 g/dl (6.3-8.2)
[2021-04-29 06:42] LABS: MANUAL DIFFERENTIAL MANUAL DIFFERENTIAL (MANUAL DIFF)
[2021-04-29 06:57] LABS: POC Glucose,Bedside 191 (70-110)
[2021-04-29 07:56] LABS: ABG Base Excess 9.4 mmol/L (-2.4-2.3); ABG HCO3 34.2 mmhg (22.0-26.0); ABG Oxygen Saturation 95 % (90-100); ABG PO2 77.2 mmhg (80-100); ABG TCO2 35.9 mmhg (23-27)
--- NOTE | 2021-04-29 08:00 | XR_ITS ---
FINAL REPORT CLINICAL HISTORY: ETT and OG placement, covid COMPARISON: April 28, 2021 FINDINGS: SINGLE VIEW CHEST. An ET tube is present with the tip 5.7 cm superior to the tami. An orogastric tube is present with the tip off the inferior margin of the film. The heart is normal in size. There is extensive pneumomediastinum and and subcutaneous emphysema particularly in the cervical and supraclavicular regions bilaterally. There may be a tiny left apical pneumothorax. There are patchy bibasilar airspace infiltrates consistent with acute pneumonia. IMPRESSION: Redemonstration of pneumomediastinum and subcutaneous emphysema. Tiny left apical pneumothorax. Bibasilar airspace infiltrates, similar to previous. ET and OG tubes as described above. Reviewed, Interpreted and Dictated by Boubacar Lieberman MD Transcribed by Dana Gillespie Authenticated by Boubacar Lieberman MD on 04/29/2021 12:17:59 PM [facility]
[2021-04-29 08:02] LABS: Oxygen 75 %; PEEP 14; Tidal Volume 460; Vent Rate 26
[2021-04-29 08:03] LABS: Lactate Arterial 1.5 mmol/L (0.4-2.0)
[2021-04-29 08:04] LABS: Lymphocytes % 6 % (10-50); Monocytes % 2 % (2-9); Neutrophils % 92 % (42-76); Platelet Estimate Slight Increase; Total Cells Counted 100
[2021-04-29 08:04] LABS: ABG PCO2 56.3 mmhg (35.0-45.0)
[2021-04-29 08:05] LABS: Hypochromasia 1+
[2021-04-29 08:06] LABS: Rouleaux 1+
[2021-04-29 08:06] LABS: POC Glucose,Bedside 220 (70-110)
--- NOTE | 2021-04-29 09:18 | HMH.PULMPN ---
Internal Medicine - PN: Subj *Date: 04/29/21 *Time: 14:12 Interval history: No acute respiratory events over the weekend. Patient tolerating proning protocol well. Exam - Constitutional Constitutional:: Present: no acute distress, comfortable - HENMT Exam HENMT: Present: normocephalic, atraumatic - Eye Exam Eyes:: Present: normal appearance both eyes and related structures - Neck Exam Neck:: Present: normal visual inspection - Respiratory Exam Respiratory:: Present: respiratory distress, rales, rhonchi - Cardiovascular Exam Cardiac:: Present: S1, S2 - GI Exam GI:: Present: soft - Skin Exam Skin: Present: warm, no rash - Neurological Exam Neurological: Present: awake. Absent: alert, normal cognition - Extremities Exam Extremities: Present: no cyanosis, no clubbing, no edema Assessment and Plan (1) Pneumonia due to COVID-19 virus Status: Acute Category: Medical Code(s): U07.1 - COVID-19; J12.82 - Pneumonia due to coronavirus disease 2019 (2) Respiratory failure with hypoxia Status: Acute Qualifiers: Chronicity: acute Qualified Code(s): J96.01 - Acute respiratory failure with hypoxia Category: Medical Code(s): J96.91 - Respiratory failure, unspecified with hypoxia (3) Pulmonary embolism Status: Acute Qualifiers: Pulmonary embolism type: single subsegmental (without acute cor pulmonale) Qualified Code(s): I26.93 - Single subsegmental pulmonary embolism without acute cor pulmonale Category: Medical Code(s): I26.99 - Other pulmonary embolism without acute cor pulmonale (4) Subcutaneous air Status: Acute Category: Medical Code(s): T79.7XXA - Traumatic subcutaneous emphysema, initial encounter - Assessment and plan all Dx Assessment and Plan for all problems:: #Acute hypoxic respiratory failure #COVID-19 pneumonia: #Pulmonary embolus: 65-year-old male, no significant prior respiratory complaints, no significant smoking history. Not yet vaccinated for COVID-19 pneumonia. Present with worsening fatigue malaise and respiratory distress. CRP elevated at 140. D-dimer at 0.92. CTA showed right lower lobe pulmonary emboli showed bilateral diffuse groundglass opacities along with lower lobe patchy consolidation/atelectasis. Sputum culture less than 10 WBC, gram-positive cocci, yeast and hyphae, yeast ID request place on 04/18/21 Echocardiogram, normal EF with inconclusive diastolic parameters. Completed 7 days of ceftriaxone and 5 days of azithromycin. Sputum cultures no growth along with blood cultures. Nasal MRSA PCR negative. Respiratory status continued to worsen and eventually intubated for mechanical ventilatory support on 04/23/2021. Interval update:- Respiratory status remained relatively stable and critical post intubation. Continue to remain critical on high ventilator settings. Tolerating proning protocol well. Improving plateau pressures and minute ventilation. We will closely monitor. Plan: -Intubated and sedated. Continue Versed and fentanyl. Deep sedation. -Continue proning protocol and mechanical ventilatory support. Continue to remain on PEEP of 14, tidal volume of 460, 75% FiO2. ABG reviewed, pH 7.40 PCO2 56 and PO2 of 77. We will decrease minute ventilation. Repeat chest x-ray no worsening pulmonary filtrates, small left pneumothorax, will monitor clinically. No acute intervention needed. Will follow repeat chest x-ray at 4 PM today. Continue Zosyn. Nasal MRS PCR negative Continue dexamethasone and barcitinib.. Continue heparin drip for acute pulmonary embolism. Duo nebs Every 6 hours scheduled -Stable leukocytosis. Continue Zosyn. -Hemodynamically stable. Not on any pressors. -Abdomen soft nontender. Stable Hb No acute intervention needed at this point of time. Continue heparin drip and PPI BID -Renal function stable. We will closely monitor. - Continue mechanical ventilatory support - Continue AnalgoSedation with Versed and Fentan
--- NOTE | 2021-04-29 09:39 | HMH.ACPN2 ---
Internal Medicine - PN: Subj *Date: 04/29/21 *Time: 09:10 Interval history: pt intubated vss, family at bedside Exam Vital signs and Labs for Last 24 Hours: Temp Pulse Resp BP Pulse Ox 98.1 F 112 H 30 H 160/93 H 94 L 04/29/21 08:00 04/29/21 07:00 04/29/21 07:00 04/29/21 07:00 04/29/21 07:00 Laboratory Results - last 24 hr 04/28/21 06:54: POC Glucose 175 H 04/28/21 12:07: POC Glucose 231 H 04/28/21 12:35: Specimen Source A line, O2 % 75, ABG pH 7.44, ABG pCO2 50.2 H, ABG pO2 95.5, ABG HCO3 33.6 H, ABG Total CO2 35.1 H, ABG O2 Saturation 98, ABG Base Excess 9.5 H, Willian Test Patient unable, Vent Rate 26, Tidal Volume 460, PEEP 14 04/28/21 17:32: POC Glucose 288 H 04/28/21 20:03: POC Glucose 220 H 04/29/21 05:23: WBC 14.6 H, RBC 3.86 L, Hgb 11.7 L, Hct 36.6 L, MCV 94.8 H, MCH 30.3, MCHC 31.9, RDW 13.6, Plt Count 477 H D, MPV 9.3, Neut % (Auto) 90.5 H, Lymph % (Auto) 5.8 L, [place] % (Auto) 2.0, Eos % (Auto) 0.9, Baso % (Auto) 0.7, Neut # (Auto) 13.2 H, Lymph # (Auto) 0.9, [place] # (Auto) 0.3, Eos # (Auto) 0.1, Baso # (Auto) 0.1, Total Counted 100, Neutrophils % (Manual) 92 H, Lymphocytes % (Manual) 6 L, Monocytes % (Manual) 2, Platelet Estimate Slight increase, Hypochromasia 1+, Rouleaux 1+ 04/29/21 05:23: Sodium 142, Potassium 4.3, Chloride 101, Carbon Dioxide 40 H, Anion Gap 5.3, BUN 47 H, Creatinine 0.90, Estimated Creat Clear 105, Estimated GFR 84, Est GFR ( Amer) 102, Glucose 213 H, Calcium 8.1 L, Total Bilirubin 0.4, AST 48, ALT 36 D, Alkaline Phosphatase 104, Total Protein 6.4, Albumin 2.8 L, Globulin 3.6 H, Albumin/Globulin Ratio 0.8 L 04/29/21 05:23: APTT 49.0 H 04/29/21 05:41: POC Glucose 191 H 04/29/21 06:00: Specimen Source a-line, O2 % 75, ABG pH 7.40, ABG pCO2 56.3 H, ABG pO2 77.2 L, ABG HCO3 34.2 H, ABG Total CO2 35.9 H, ABG O2 Saturation 95, ABG Base Excess 9.4 H, Willian Test n/a, ABG Lactate 1.5, Vent Rate 26, Tidal Volume 460, PEEP 14 I & O for Last 24 hours: Intake & Output 04/26/21 04/27/21 04/28/21 04/29/21 11:59 11:59 11:59 11:59 Intake Total 3133.167 / 3133.167 3605.5 / 3669.5 2919.167 / 2994.167 2723.333 / 2723.333 Output Total 3300 / 3400 2245 / 2320 2485 / 3285 5435 / 5435 Balance -166.833 / -498.533 6593.5 / 1349.5 434.167 / -290.833 -2711.667 / -2711.667 Weight 234 lb 2.095 oz 234 lb 227 lb 8.273 oz 227 lb 8.273 oz Microbiology Reports for the Last 24 Hours: Microbiology 04/23/21 12:20 Sputum - Endotracheal Tube Aspirate Gram Stain - Final 04/23/21 12:20 Sputum - Endotracheal Tube Aspirate Sputum Culture - Final Staphylococcus haemolyticus - Constitutional no acute distress - *Routine HEENT Exam Head: Present: normocephalic Eye: Present: PERRL ENT: Present: mucous membranes moist - *Routine Neck Exam Comments: sq air to shoulders - *Routine Respiratory Exam Present: patient mechanically ventilated - *Routine Cardiovascular Exam Present: RRR - *Routine Abdominal Exam Present: soft, normoactive bowel sounds. Absent: tenderness - *Routine Exam Comments: orona cath in place - *Routine Extremities Exam Absent: cyanosis, clubbing, edema - *Routine Skin Exam Present: warm. Absent: rash - *Routine Neurological Exam sedated Assessment and Plan (1) Pneumonia due to COVID-19 virus Status: Acute Category: Medical Code(s): U07.1 - COVID-19; J12.82 - Pneumonia due to coronavirus disease 2019 (2) Respiratory failure with hypoxia Status: Acute Qualifiers: Chronicity: acute Qualified Code(s): J96.01 - Acute respiratory failure with hypoxia Category: Medical Code(s): J96.91 - Respiratory failure, unspecified with hypoxia (3) Pulmonary embolism Status: Acute Qualifiers: Pulmonary embolism type: single subsegmental (without acute cor pulmonale) Qualified Code(s): I26.93 - Single subsegmental pulmonary embolism without acute cor pulmonale Category: Medical Code(s): I26.99 - Other
[2021-04-29 11:12] LABS: ABG Base Excess 8.1 mmol/L (-2.4-2.3); ABG HCO3 33.2 mmhg (22.0-26.0); ABG Oxygen Saturation 97 % (90-100); ABG PH 7.38 mmol/L (7.35-7.45); ABG PO2 97.1 mmhg (80-100); ABG TCO2 34.9 mmhg (23-27)
[2021-04-29 11:16] LABS: Oxygen 75 %; Tidal Volume 440
[2021-04-29 11:17] LABS: Allen's Test Patient Unable; PEEP 14; Vent Rate 26
[2021-04-29 11:18] LABS: ABG PCO2 56.8 mmhg (35.0-45.0)
--- NOTE | 2021-04-29 12:03 | SW/DCPLANNER ---
Addendum entered by Yaneth Persaud 05/03/21 09:41: Dr Recio updated this family regarding POC. The plan is for Dr Boyce to round on patient then make contact with Dr Recio to come up with a plan and contact transfer facilities. Family agreeable with plan. Original Note: Patient remains inpatient on ventilator. Family has requested this patient be transferred: pt remains on transfer list to several facilities. I will continue to follow up with MD and family to assist with any needs.
--- NOTE | 2021-04-29 13:00 | P.PN_ITS ---
Subjective Narrative: No significant change from general surgery standpoint Progress Note: A&P (1) Pneumonia due to COVID-19 virus Status: Acute (2) Respiratory failure with hypoxia Status: Acute (3) Pulmonary embolism Status: Acute (4) Subcutaneous air Status: Acute Assessment and plan: Subcutaneous emphysema persists. Chest x-ray reviewed which revealed subcutaneous emphysema. Report reveals tiny left apical pneumothorax . This seems quite subtle upon review of the films. Would not place chest tube based on this imaging. May need follow-up imaging or repeat CT scan of the chest for confirmation. Assessment and Plan for All Diagnoses:: No evidence of any GI bleeding. Nasogastric aspirate appears dark brown. Hemoglobin stable Exam Vital signs and Labs for Last 24 Hours: Temp Pulse Resp BP Pulse Ox 98.1 F 106 H 30 H 160/93 H 94 L 04/29/21 08:00 04/29/21 11:23 04/29/21 07:00 04/29/21 07:00 04/29/21 07:00 Laboratory Results - last 24 hr 04/28/21 06:54: POC Glucose 175 H 04/28/21 12:07: POC Glucose 231 H 04/28/21 17:32: POC Glucose 288 H 04/28/21 20:03: POC Glucose 220 H 04/29/21 05:23: WBC 14.6 H, RBC 3.86 L, Hgb 11.7 L, Hct 36.6 L, MCV 94.8 H, MCH 30.3, MCHC 31.9, RDW 13.6, Plt Count 477 H D, MPV 9.3, Neut % (Auto) 90.5 H, Lymph % (Auto) 5.8 L, [place] % (Auto) 2.0, Eos % (Auto) 0.9, Baso % (Auto) 0.7, Neut # (Auto) 13.2 H, Lymph # (Auto) 0.9, [place] # (Auto) 0.3, Eos # (Auto) 0.1, Baso # (Auto) 0.1, Total Counted 100, Neutrophils % (Manual) 92 H, Lymphocytes % (Manual) 6 L, Monocytes % (Manual) 2, Platelet Estimate Slight increase, Hypochromasia 1+, Rouleaux 1+ 04/29/21 05:23: Sodium 142, Potassium 4.3, Chloride 101, Carbon Dioxide 40 H, Anion Gap 5.3, BUN 47 H, Creatinine 0.90, Estimated Creat Clear 105, Estimated GFR 84, Est GFR ( Amer) 102, Glucose 213 H, Calcium 8.1 L, Total Bilirubin 0.4, AST 48, ALT 36 D, Alkaline Phosphatase 104, Total Protein 6.4, Albumin 2.8 L, Globulin 3.6 H, Albumin/Globulin Ratio 0.8 L 04/29/21 05:23: APTT 49.0 H 04/29/21 05:41: POC Glucose 191 H 04/29/21 06:00: Specimen Source a-line, O2 % 75, ABG pH 7.40, ABG pCO2 56.3 H, ABG pO2 77.2 L, ABG HCO3 34.2 H, ABG Total CO2 35.9 H, ABG O2 Saturation 95, ABG Base Excess 9.4 H, Willian Test n/a, ABG Lactate 1.5, Vent Rate 26, Tidal Volume 460, PEEP 14 04/29/21 11:00: Specimen Source art line, O2 % 75, ABG pH 7.38, ABG pCO2 56.8 H, ABG pO2 97.1, ABG HCO3 33.2 H, ABG Total CO2 34.9 H, ABG O2 Saturation 97, ABG Base Excess 8.1 H, Willian Test Patient unable, Vent Rate 26, Tidal Volume 440, PEEP 14 I & O for Last 24 hours: Intake & Output 04/27/21 04/28/21 04/29/21 04/30/21 11:59 11:59 11:59 11:59 Intake Total 3605.5 / 3669.5 2919.167 / 2994.167 2795.833 / 2795.833 Output Total 2245 / 2320 2485 / 3285 5435 / 5435 Balance 1360.5 / 1349.5 434.167 / -290.833 -2639.167 / -2639.167 Weight 234 lb 227 lb 8.273 oz 227 lb 8.273 oz Microbiology Reports for the Last 24 Hours: Microbiology 04/23/21 12:20 Sputum - Endotracheal Tube Aspirate Gram Stain - Final 04/23/21 12:20 Sputum - Endotracheal Tube Aspirate Sputum Culture - Final Staphylococcus haemolyticus Narrative: Subcutaneous emphysema persists as per nursing staff.
--- NOTE | 2021-04-29 14:59 | PC.NURSE ---
1015 -Dr Rosado rounding on pt at this time. advised him that pt hr has been elevated since start of this shift and has gotten higher. Per Dr Rosado, hold hydralazine ( states it can cause reflex tachycardia). and admin Metoprolol 5mg iv times 1 dose. - also states to keep tube feeds going during proning, but at a much lower rate (10ml/hr) - Notified MD that pt has MRSA in sputum [address] Bowen in regards to pt chest xray that shows possible small pneumothorax. surgeon states that he would prefer a repeat xray or even a chest ct before he places a Chest tube. Dr Bowen states to update Dr Rosado about recommendations. [address] Rosado about pt. states to repeat chest xray at 1600. also informed him that pt hr has again elevated to the 120-130. per Dr Rosado, hold hydralazine. give metoprolol 5 mg iv q6h prn if heart rate is greater that 120 AND sbp greater than 140
--- NOTE | 2021-04-29 16:00 | XR_ITS ---
FINAL REPORT TECHNIQUE: Single view chest CLINICAL HISTORY: monitor for pneumo/intubated COMPARISON: Exam performed earlier today FINDINGS: A single view of the chest was obtained. ET tube is unchanged. There is extensive subcutaneous emphysema and stable pneumomediastinum. The heart and mediastinum are within normal limits. Small left apical pneumothorax is now well seen. There are patchy bibasilar airspace infiltrates, left greater than the right. Osseous structures are unremarkable. IMPRESSION: Left pneumothorax not well visualized. Otherwise, no significant interval change. Reviewed, Interpreted and Dictated by Boubacar Lieberman MD Transcribed by Nathalie Jiménez Authenticated by Boubacar Lieberman MD on 04/29/2021 04:39:19 PM [facility]
[2021-04-29 16:13] LABS: PTT Heparin (inpatient only) 100.5 Seconds (23.6-34.0)
--- NOTE | 2021-04-29 21:31 | PC.NURSE ---
Family at this evening at approx 1800, states they are concerned about pt getting tube feeds while prone. Daughter Michelle requests to hold tube feeds while pt is prone
[2021-04-29 21:33] LABS: POC Glucose,Bedside 254 (70-110)
--- NOTE | 2021-04-29 22:11 | PC.NURSE ---
[facility] contacted at this time about PTT result of 105.0, advised to decrease to heparin to 1700 units/hr, will do another PTT at 0300
--- NOTE | 2021-04-29 22:22 | PC.NURSE ---
[address] peters that he pt wsa tachycardic, tachypneic and bp was normo tensive. pt did not meet criteria for prn dose of metoprolol that he had ordered. (hr 120-130) sbp 115/125. new orders: 500ml bolus of lr
[2021-04-30] VITALS (35 sets, daily range): BP systolic 112–145; BP diastolic 61–87; PULSE 87–130; RESP 26–32; TEMP 36.3–37.4; O2SAT 95–99; BMI 30.1
[2021-04-30 00:24] LABS: POC Glucose,Bedside 251 (70-110)
--- NOTE | 2021-04-30 04:40 | PC.NURSE ---
contacted [facility] to report PTT of 88, gave orders to decrease to 1500 units/hr, and to put in an order for a PTT at 1000
[2021-04-30 06:09] LABS: POC Glucose,Bedside 221 (70-110)
[2021-04-30 08:01] LABS: ABG Base Excess 9.1 mmol/L (-2.4-2.3); ABG HCO3 35.1 mmhg (22.0-26.0); ABG Oxygen Saturation 99 % (90-100); ABG PH 7.32 mmol/L (7.35-7.45); ABG PO2 161.7 mmhg (80-100); ABG TCO2 37.3 mmhg (23-27); Lactate Arterial 1.4 mmol/L (0.4-2.0)
[2021-04-30 08:05] LABS: Allen's Test Patient Unable; Oxygen 75% %; PEEP 14; Source ART LINE; Tidal Volume 440; Vent Rate 26
[2021-04-30 08:06] LABS: ABG PCO2 69.3 mmhg (35.0-45.0)
--- NOTE | 2021-04-30 08:15 | PC.NURSE ---
pt now in supine position until Dr. Rosado orders differently
[2021-04-30 08:18] LABS: Basophils # 0.1 K/mm3 (0-0.2); Basophils % 0.3 % (0.1-2.0); Eosinophils # 0.1 K/mm3 (0.0-0.4); Eosinophils % 0.3 % (0.1-12.0); Hematocrit 33.7 % (42.0-52.0); Hemoglobin 10.3 g/dL (14.1-18.0); Lymphocytes # 0.9 K/mm3 (0.7-4.5); Lymphocytes % 4.5 % (10-50); Mean Corpuscular HGB Conc 30.6 g/dL (31.8-35.4); Mean Corpuscular Hemoglobin 30.1 pg (27.0-31.2); Mean Corpuscular Volume 98.4 fl (80-94); Mean Platelet Volume 9.1 fl (7.4-10.4); Monocytes # 0.5 K/mm3 (0.1-1.0); Monocytes % 2.2 % (1.7-9.3); Neutrophils # 18.8 K/mm3 (1.8-7.8); Neutrophils % 92.7 % (37.0-80.0); Platelet Count 488 K/mm3 (142-424); Red Blood Count 3.42 M/mm3 (4.60-6.20); Red Cell Distribution Width 13.7 % (11.5-17.5); White Blood Count 20.2 K/mm3 (4.8-10.8)
[2021-04-30 08:26] LABS: Alanine Aminotransferase 33 U/L (12-78); Albumin Level 2.8 g/dl (3.5-5.0); Albumin/Globulin Ratio 0.8 (1.1-1.8); Alkaline Phosphatase 91 U/L (38-126); Aspartate Amino Transferase 32 U/L (17-59); Bilirubin,Total 0.4 mg/dl (0.2-1.3); Blood Urea Nitrogen 54 mg/dl (9-20); Calcium 8.1 mg/dl (8.4-10.2); Chloride 105 mmol/L (98-107); Creatinine Clearance Estimated 95 mL/min (50-200); Estimated Glomerular Filt Rate 67 ml/min (>60); GFR (African American) 81 ML/MIN (>60); Globulin 3.5 g/dL (1.3-3.2); Glucose 226 mg/dl (74-100); Potassium 4.7 mmoL/L (3.5-5.1); Sodium 144 mmol/L (136-145); Total Protein,Serum 6.3 g/dl (6.3-8.2)
[2021-04-30 08:32] LABS: Anion Gap 5.7 mEq/L (5-15); Carbon Dioxide 38 mmol/L (22.0-30.0); MANUAL DIFFERENTIAL MANUAL DIFFERENTIAL (MANUAL DIFF)
--- NOTE | 2021-04-30 09:10 | DIET.NUTRFU ---
RD reviewed patient with nurse. Per Dr. Rosado's recommendation, maximum for TF is 50mL. Updated order, pt tolerating 50mL when not proning. When proning, TF not tolerated d/t nonabsorption and coming back out of oral cavity. According to nursing, pt is proning for 16 hrs/day, therefore, TF is being held per family wishes. Dr. Rosado advised to run at low rate of 10 mL/hr during proning, but family refused. TF is only proving pt 600 kcals, 25 g protein, 314 mL fluid plus additional IVF with multiple medications per day, unable to meet pt's needs.
--- NOTE | 2021-04-30 09:32 | HMH.ACPN2 ---
Internal Medicine - PN: Subj *Date: 04/30/21 *Time: 09:44 Interval history: 65-year-old male patient lying in bed on back after being repositioned from prone during the night. He is mechanically ventilated and sedated. Long discussion with family regarding patient's status and all questions answered. Awaiting transfer to multiple facilities. Exam Vital signs and Labs for Last 24 Hours: Temp Pulse Resp BP Pulse Ox 98.1 F 113 H 26 H 132/78 99 04/30/21 08:00 04/30/21 08:00 04/30/21 08:00 04/30/21 08:00 04/30/21 08:00 Laboratory Results - last 24 hr 04/29/21 11:00: Specimen Source art line, O2 % 75, ABG pH 7.38, ABG pCO2 56.8 H, ABG pO2 97.1, ABG HCO3 33.2 H, ABG Total CO2 34.9 H, ABG O2 Saturation 97, ABG Base Excess 8.1 H, Willian Test Patient unable, Vent Rate 26, Tidal Volume 440, PEEP 14 04/29/21 12:50: POC Glucose 254 H 04/29/21 15:00: APTT 100.5 H* 04/29/21 21:15: APTT 105.0 H* 04/29/21 22:02: POC Glucose 251 H 04/30/21 03:30: APTT 88.0 H* 04/30/21 05:58: POC Glucose 221 H 04/30/21 06:00: Specimen Source Art line, O2 % 75%, ABG pH 7.32 L, ABG pCO2 69.3 H, ABG pO2 161.7 H, ABG HCO3 35.1 H, ABG Total CO2 37.3 H, ABG O2 Saturation 99, ABG Base Excess 9.1 H, Willian Test Patient unable, ABG Lactate 1.4, Vent Rate 26, Tidal Volume 440, PEEP 14 04/30/21 07:45: WBC 20.2 H* D, RBC 3.42 L, Hgb 10.3 L, Hct 33.7 L, MCV 98.4 H, MCH 30.1, MCHC 30.6 L, RDW 13.7, Plt Count 488 H, MPV 9.1, Neut % (Auto) 92.7 H, Lymph % (Auto) 4.5 L, [place] % (Auto) 2.2, Eos % (Auto) 0.3, Baso % (Auto) 0.3, Neut # (Auto) 18.8 H, Lymph # (Auto) 0.9, [place] # (Auto) 0.5, Eos # (Auto) 0.1, Baso # (Auto) 0.1 04/30/21 07:45: Sodium 144, Potassium 4.7, Chloride 105, Carbon Dioxide 38 H, Anion Gap 5.7, BUN 54 H, Creatinine 1.10 D, Estimated Creat Clear 95, Estimated GFR 67, Est GFR ( Amer) 81 D, Glucose 226 H, Calcium 8.1 L, Total Bilirubin 0.4, AST 32 D, ALT 33, Alkaline Phosphatase 91, Total Protein 6.3, Albumin 2.8 L, Globulin 3.5 H, Albumin/Globulin Ratio 0.8 L I & O for Last 24 hours: Intake & Output 04/27/21 04/28/21 04/29/21 04/30/21 23:59 23:59 23:59 23:59 Intake Total 3221.5 / 3402.5 3096.167 / 3155.167 3027.166 / 3091.166 841.000 / 841.000 Output Total 1900 / 2125 6310 / 6360 2075 / 2135 440 / 440 Balance 1321.5 / 1277.5 -3213.833 / -3204.833 952.166 / 956.166 401.000 / 401.000 Weight 234 lb 227 lb 8.273 oz 227 lb 8.273 oz 227 lb 1.218 oz Microbiology Reports for the Last 24 Hours: Microbiology 04/23/21 12:20 Sputum - Endotracheal Tube Aspirate Gram Stain - Final 04/23/21 12:20 Sputum - Endotracheal Tube Aspirate Sputum Culture - Final Staphylococcus haemolyticus - Constitutional no acute distress - *Routine Neck Exam Present: trachea midline. Absent: tracheal deviation - *Routine Respiratory Exam Present: patient mechanically ventilated, crackles - *Routine Cardiovascular Exam Present: tachycardia - *Routine Abdominal Exam Present: soft, normoactive bowel sounds. Absent: firm - *Routine Extremities Exam Present: pulses intact. Absent: cyanosis, clubbing - *Routine Skin Exam Present: intact, dry. Absent: cyanosis - *Routine Neurological Exam Present: altered mental status Intubated/Sedated - Routine Psychiatric Exam Present: unable to assess Comments: Intubated/Sedated Assessment and Plan (1) Pneumonia due to COVID-19 virus Status: Acute Category: Medical Code(s): U07.1 - COVID-19; J12.82 - Pneumonia due to coronavirus disease 2019 (2) Respiratory failure with hypoxia Status: Acute Qualifiers: Chronicity: acute Qualified Code(s): J96.01 - Acute respiratory failure with hypoxia Category: Medical Code(s): J96.91 - Respiratory failure, unspecified with hypoxia (3) Pulmonary embolism Status: Acute Qualifiers: Pulmonary embolism type: single subsegmental (without acute cor pulmonale) Qualified Code(s): I26.93 - Single subseg
[2021-04-30 09:53] LABS: Lymphocytes % 4 % (10-50); Macrocytosis 1+; Monocytes % 1 % (2-9); Neutrophils % 95 % (42-76); Platelet Estimate Normal; Total Cells Counted 100
--- NOTE | 2021-04-30 10:11 | XR_ITS ---
FINAL REPORT CLINICAL HISTORY: hypoxia, covid COMPARISON: 04/29/2021 FINDINGS: SINGLE VIEW CHEST The heart is normal in size. The mediastinum is unremarkable. Endotracheal tube is unchanged. Subcutaneous emphysema and pneumomediastinum are seen. Emphysema is slightly improved since prior. There are patchy bibasilar airspace infiltrates, similar to previous. There is no pneumothorax. IMPRESSION: No significant change in the bibasilar airspace infiltrates. Reviewed, Interpreted and Dictated by Boubacar Lieberman MD Transcribed by Starr Cowart Authenticated by Boubacar Lieberman MD on 04/30/2021 11:58:57 AM [facility]
[2021-04-30 11:20] LABS: ABG PH 7.36 mmol/L (7.35-7.45)
[2021-04-30 11:22] LABS: ABG Base Excess 9.4 mmol/L (-2.4-2.3); ABG HCO3 34.9 mmhg (22.0-26.0); ABG Oxygen Saturation 98 % (90-100); ABG PO2 110.7 mmhg (80-100); ABG TCO2 36.8 mmhg (23-27)
[2021-04-30 11:23] LABS: Oxygen 65 %
[2021-04-30 11:29] LABS: Lactate Arterial 1.3 mmol/L (0.4-2.0); PEEP 14; Tidal Volume 440; Vent Rate 26
[2021-04-30 11:36] LABS: POC Glucose,Bedside 251 (70-110)
[2021-04-30 11:38] LABS: POC Glucose,Bedside 311 (70-110)
[2021-04-30 11:47] LABS: PTT Heparin (inpatient only) 67.3 Seconds (23.6-34.0)
--- NOTE | 2021-04-30 11:47 | PC.NURSE ---
received call from lab reporting that PTT is 67.3. Name and verified. Notified pharmacy ([facility]). NO new orders received at this time.
--- NOTE | 2021-04-30 13:26 | HMH.PULMPN ---
Internal Medicine - PN: Subj *Date: 04/30/21 *Time: 13:26 Assessment and Plan (1) Pneumonia due to COVID-19 virus Status: Acute Category: Medical Code(s): U07.1 - COVID-19; J12.82 - Pneumonia due to coronavirus disease 2019 (2) Respiratory failure with hypoxia Status: Acute Qualifiers: Chronicity: acute Qualified Code(s): J96.01 - Acute respiratory failure with hypoxia Category: Medical Code(s): J96.91 - Respiratory failure, unspecified with hypoxia (3) Pulmonary embolism Status: Acute Qualifiers: Pulmonary embolism type: single subsegmental (without acute cor pulmonale) Qualified Code(s): I26.93 - Single subsegmental pulmonary embolism without acute cor pulmonale Category: Medical Code(s): I26.99 - Other pulmonary embolism without acute cor pulmonale (4) Subcutaneous air Status: Acute Category: Medical Code(s): T79.7XXA - Traumatic subcutaneous emphysema, initial encounter - Assessment and plan all Dx Assessment and Plan for all problems:: #Acute hypoxic respiratory failure #COVID-19 pneumonia: #Pulmonary embolus: 65-year-old male, no significant prior respiratory complaints, no significant smoking history. Not yet vaccinated for COVID-19 pneumonia. Present with worsening fatigue malaise and respiratory distress. CRP elevated at 140. D-dimer at 0.92. CTA showed right lower lobe pulmonary emboli showed bilateral diffuse groundglass opacities along with lower lobe patchy consolidation/atelectasis. Sputum culture less than 10 WBC, gram-positive cocci, yeast and hyphae, yeast ID request place on 04/18/21 Echocardiogram, normal EF with inconclusive diastolic parameters. Completed 7 days of ceftriaxone and 5 days of azithromycin. Sputum cultures no growth along with blood cultures. Nasal MRSA PCR negative. Respiratory status continued to worsen and eventually intubated for mechanical ventilatory support on 04/23/2021. Interval update:- Respiratory status remained relatively stable and critical post intubation. Continue to remain critical on high ventilator settings. Tolerating proning protocol well. Improving plateau pressures and minute ventilation. We will closely monitor. Have discussed with patient and family this morning regarding the current clinical condition and addressed all of their concerns and questions Plan: -Intubated and sedated. Continue Versed and fentanyl. Deep sedation. -Improving complaince plateau pressure at 25. Supine ABG showed pH of 7.36, PCO2 63 and PO2 110 on FiO2 of 70%. Will discontinue proning protocol. Repeat chest x-ray no worsening pulmonary filtrates, pneumothorax not readily appreciated on today's chest x-ray.. No acute intervention needed. Continue Zosyn. Nasal MRS PCR negative. Sputum cultures from 04/23/2021 reported to grow staph hemolyticus after 6 days which is methicillin-resistant. We will hold off on initiating vancomycin at this point of time. We will repeat tracheal aspirate and blood cultures. Completed 14 days of baricitinib. Continue dexamethasone. Continue heparin drip for acute pulmonary embolism. Duo nebs Every 6 hours scheduled -Worsening leukocytosis. Continue Zosyn. We will closely monitor on follow with repeat tracheal aspirate and blood cultures. If clinical worsening will consider initiating vancomycin for methicillin-resistant staph hemolyticus -Hemodynamically stable. Not on any pressors. -Abdomen soft nontender. Stable Hb No acute intervention needed at this point of time. Continue heparin drip and PPI BID. Continue tube feeds -Renal function stable. We will closely monitor. - Continue mechanical ventilatory support - Continue AnalgoSedation with Versed and Fentanyl with CPOT gal less than or euqal to 2 and RASS goal of 0 (Deep sedation) - VAP bundle Elevate head of the bed at 30 to 45 degrees Oral care with chlorhexidne GI ulcer prophylaxis - PPI BID Chemical DVT prophylaxis. Thank you fo
[2021-04-30 18:37] LABS: PTT Heparin (inpatient only) 57.8 Seconds (23.6-34.0)
--- NOTE | 2021-04-30 19:27 | PC.NURSE ---
Nightwatch contacted at this time, stated to leave it at 1500 units/hr, recheck at 0600 tomorrow
[2021-05-01] VITALS (36 sets, daily range): BP systolic 118–171; BP diastolic 65–84; PULSE 95–137; RESP 26–31; TEMP 37.3–38.7; O2SAT 92–99; BMI 30.3
[2021-05-01 00:44] LABS: POC Glucose,Bedside 244 (70-110)
--- NOTE | 2021-05-01 06:00 | XR_ITS ---
PROCEDURE INFORMATION: Exam: XR Chest Exam date and time: 05/01/2021 6:00 AM Age: 65 years old Clinical indication: Condition or disease and device placement; Ett placement (vent status); Lung condition and disease; Pneumonia; Other: Covid; Additional info: Daily while intubated TECHNIQUE: Imaging protocol: XR of the chest. Views: 1 view. COMPARISON: CR XR CHEST PORTABLE 04/30/2021 10:38 AM FINDINGS: Tubes, catheters and devices: Endotracheal tube terminates approximately 6.8 cm above the tami. NG tube passes into the stomach. Lungs: Similar patchy bibasilar airspace opacities. Pleural spaces: No discernible pneumothorax. No substantial pleural effusion. Heart/Mediastinum: Unremarkable. No cardiomegaly. Bones/joints: Unremarkable. Soft tissues: Similar subcutaneous emphysema over the thorax. Intraperitoneal space: Query a small amount of pneumoperitoneum in the right upper quadrant. IMPRESSION: 1. Endotracheal tube terminates approximately 6.8 cm above the tami. 2. Similar patchy bibasilar airspace opacities. 3. Query a small amount of pneumoperitoneum.
--- NOTE | 2021-05-01 06:28 | PC.NURSE ---
pt has had an increase in swelling this shift vent settings FiO2 65 Peep 14 Resp 26 TV 440 Fentanyl gtt 145 Versed 0.2 heparin 1500 units
[2021-05-01 07:14] LABS: Basophils # 0.1 K/mm3 (0-0.2); Basophils % 0.2 % (0.1-2.0); Hematocrit 30.7 % (42.0-52.0); Lymphocytes % 4.3 % (10-50); Mean Corpuscular HGB Conc 29.7 g/dL (31.8-35.4); Mean Corpuscular Hemoglobin 29.7 pg (27.0-31.2); Mean Corpuscular Volume 100.1 fl (80-94); Mean Platelet Volume 9.5 fl (7.4-10.4); Monocytes # 0.7 K/mm3 (0.1-1.0); Monocytes % 2.7 % (1.7-9.3); Neutrophils # 22.3 K/mm3 (1.8-7.8); Neutrophils % 92.7 % (37.0-80.0); Platelet Count 640 K/mm3 (142-424); Red Blood Count 3.06 M/mm3 (4.60-6.20); Red Cell Distribution Width 14.1 % (11.5-17.5)
[2021-05-01 07:16] LABS: PTT Heparin (inpatient only) 47.9 Seconds (23.6-34.0)
[2021-05-01 07:20] LABS: Alanine Aminotransferase 31 U/L (12-78); Albumin Level 2.9 g/dl (3.5-5.0); Albumin/Globulin Ratio 0.8 (1.1-1.8); Alkaline Phosphatase 97 U/L (38-126); Aspartate Amino Transferase 38 U/L (17-59); Bilirubin,Total 0.5 mg/dl (0.2-1.3); Blood Urea Nitrogen 59 mg/dl (9-20); Calcium 8.1 mg/dl (8.4-10.2); Chloride 106 mmol/L (98-107); Creatinine Clearance Estimated 81 mL/min (50-200); Estimated Glomerular Filt Rate 55 ml/min (>60); GFR (African American) 67 ML/MIN (>60); Globulin 3.6 g/dL (1.3-3.2); Glucose 237 mg/dl (74-100); Potassium 5.1 mmoL/L (3.5-5.1); Sodium 147 mmol/L (136-145); Total Protein,Serum 6.5 g/dl (6.3-8.2)
[2021-05-01 07:27] LABS: Anion Gap 7.1 mEq/L (5-15); Carbon Dioxide 39 mmol/L (22.0-30.0)
[2021-05-01 07:29] LABS: MANUAL DIFFERENTIAL MANUAL DIFFERENTIAL (MANUAL DIFF)
--- NOTE | 2021-05-01 07:36 | PC.NURSE ---
PTT 47.9. Pharmacy ([facility]) notified. He will call back with new orders for Heparin gtt.
[2021-05-01 07:44] LABS: ABG Base Excess 8.8 mmol/L (-2.4-2.3); ABG HCO3 34.3 mmhg (22.0-26.0); ABG Oxygen Saturation 94 % (90-100); ABG PH 7.35 mmol/L (7.35-7.45); ABG PO2 73.2 mmhg (80-100); ABG TCO2 36.2 mmhg (23-27); Oxygen 65 %
[2021-05-01 07:45] LABS: PEEP 14; Tidal Volume 440; Vent Rate 26
[2021-05-01 07:46] LABS: Lactate Arterial 1.6 mmol/L (0.4-2.0)
[2021-05-01 08:23] LABS: Hypochromasia 1+; Lymphocytes % 6 % (10-50); Macrocytosis 1+; Neutrophils % 94 % (42-76); Platelet Estimate Normal; Total Cells Counted 100
--- NOTE | 2021-05-01 09:07 | HMH.GSPN ---
Subjective Narrative: No changes per nursing staff Progress Note: A&P (1) Pneumonia due to COVID-19 virus Status: Acute (2) Respiratory failure with hypoxia Status: Acute (3) Pulmonary embolism Status: Acute (4) Subcutaneous air Status: Acute (5) Pneumothorax Status: Acute (6) Tachycardia Status: Acute (7) Abnormal chest x-ray Status: Acute Assessment and plan: Possible tiny amount of pneumoperitoneum noted in the right upper quadrant. This radiographic anomaly may or may not represent actual intra-abdominal air. Although this would not be a typical presentation of masking from SQ emphysema , the possibility does exist. Even if a very small amount of air was within the peritoneal space, emergent/urgent surgical intervention would not be warranted. If a significant amount of pneumoperitoneum developed, surgery would still likely not be warranted as the patient's overall prognosis remains dismal. In general, likelihood of survival in this patient seems to be exceptionally low even if he does not develop a surgical emergency . If he does develop a surgical emergency such as perforated viscus, the likelihood of surviving surgery is essentially nonexistent. Exam Vital signs and Labs for Last 24 Hours: Temp Pulse Resp BP Pulse Ox 99.2 F 110 H 30 H 131/74 96 05/01/21 07:52 05/01/21 08:00 05/01/21 08:00 05/01/21 08:00 05/01/21 08:00 Laboratory Results - last 24 hr 04/29/21 17:52: POC Glucose 311 H* 04/30/21 07:45: Total Counted 100, Neutrophils % (Manual) 95 H, Lymphocytes % (Manual) 4 L, Monocytes % (Manual) 1 L, Platelet Estimate Normal, Macrocytosis 1+ 04/30/21 10:20: APTT 67.3 H* 04/30/21 11:10: Specimen Source a-line, O2 % 65, ABG pH 7.36, ABG pCO2 63.0 H, ABG pO2 110.7 H, ABG HCO3 34.9 H, ABG Total CO2 36.8 H, ABG O2 Saturation 98, ABG Base Excess 9.4 H, Willian Test n/a, ABG Lactate 1.3, Vent Rate 26, Tidal Volume 440, PEEP 14 04/30/21 11:27: POC Glucose 251 H 04/30/21 18:00: APTT 57.8 H* 04/30/21 21:47: POC Glucose 244 H 05/01/21 06:50: WBC 24.0 H*, RBC 3.06 L, Hct 30.7 L, MCV 100.1 H, MCH 29.7, MCHC 29.7 L, RDW 14.1, Plt Count 640 H D, MPV 9.5, Neut % (Auto) 92.7 H, Lymph % (Auto) 4.3 L, [place] % (Auto) 2.7, Eos % (Auto) 0.0 L, Baso % (Auto) 0.2, Neut # (Auto) 22.3 H, Lymph # (Auto) 1.0, [place] # (Auto) 0.7, Eos # (Auto) 0.0, Baso # (Auto) 0.1, Total Counted 100, Neutrophils % (Manual) 94 H, Lymphocytes % (Manual) 6 L, Platelet Estimate Normal, Hypochromasia 1+, Macrocytosis 1+ 05/01/21 06:50: Sodium 147 H, Potassium 5.1, Chloride 106, Carbon Dioxide 39 H, Anion Gap 7.1, BUN 59 H, Creatinine 1.30 H, Estimated Creat Clear 81, Estimated GFR 55 L, Est GFR ( Amer) 67, Glucose 237 H, Calcium 8.1 L, Total Bilirubin 0.5, AST 38, ALT 31, Alkaline Phosphatase 97, Total Protein 6.5, Albumin 2.9 L, Globulin 3.6 H, Albumin/Globulin Ratio 0.8 L 05/01/21 06:50: APTT 47.9 H 05/01/21 07:39: Specimen Source art line, O2 % 65, ABG pH 7.35, ABG pCO2 63.0 H, ABG pO2 73.2 L, ABG HCO3 34.3 H, ABG Total CO2 36.2 H, ABG O2 Saturation 94, ABG Base Excess 8.8 H, Willian Test n/a, ABG Lactate 1.6, Vent Rate 26, Tidal Volume 440, PEEP 14 I & O for Last 24 hours: Intake & Output 04/28/21 04/29/21 04/30/21 05/01/21 11:59 11:59 11:59 11:59 Intake Total 2919.167 / 2994.167 3245.833 / 3318.833 2618.333 / 2618.333 2397.333 / 2397.333 Output Total 2485 / 3285 5680 / 5880 1959 / 2009 1295 / 1295 Balance 434.167 / -290.833 -2434.167 / -2561.167 658.333 / 147.137 6185.333 / 1102.333 Weight 227 lb 8.273 oz 227 lb 8.273 oz 227 lb 1.218 oz 228 lb 9.91 oz Microbiology Reports for the Last 24 Hours: Microbiology 04/30/21 11:51 Sputum - Endotracheal Tube Aspirate Gram Stain - Final - Constitutional Comments: No changes - *Routine Cardiovascular Exam Present: tachycardia
--- NOTE | 2021-05-01 09:30 | HMH.PULMPN ---
Internal Medicine - PN: Subj *Date: 05/01/21 *Time: 12:11 Interval history: No acute respiratory events overnight. Exam - Constitutional Constitutional:: Present: no acute distress, comfortable - HENMT Exam HENMT: Present: normocephalic, atraumatic Comment:: Subcutaneous emphysema appears to be worsening today. - Eye Exam Eyes:: Present: normal appearance both eyes and related structures - Neck Exam Neck:: Present: normal visual inspection Comments: Both eyelids appear more puffy secondary to subcutaneous emphysema. - Respiratory Exam Respiratory:: Present: normal respiratory effort, rales, rhonchi - Cardiovascular Exam Cardiac:: Present: S1, S2 - GI Exam GI:: Present: soft, no tenderness. Absent: distended, firm - Skin Exam Skin: Present: warm, no rash - Neurological Exam Neurological: Absent: alert, awake, normal cognition - Extremities Exam Extremities: Present: no cyanosis, no clubbing, edema Assessment and Plan (1) Pneumonia due to COVID-19 virus Status: Acute Category: Medical Code(s): U07.1 - COVID-19; J12.82 - Pneumonia due to coronavirus disease 2019 (2) Respiratory failure with hypoxia Status: Acute Qualifiers: Chronicity: acute Qualified Code(s): J96.01 - Acute respiratory failure with hypoxia Category: Medical Code(s): J96.91 - Respiratory failure, unspecified with hypoxia (3) Pulmonary embolism Status: Acute Qualifiers: Pulmonary embolism type: single subsegmental (without acute cor pulmonale) Qualified Code(s): I26.93 - Single subsegmental pulmonary embolism without acute cor pulmonale Category: Medical Code(s): I26.99 - Other pulmonary embolism without acute cor pulmonale (4) Subcutaneous air Status: Acute Category: Medical Code(s): T79.7XXA - Traumatic subcutaneous emphysema, initial encounter (5) Pneumothorax Status: Acute Category: Medical Code(s): J93.9 - Pneumothorax, unspecified (6) Tachycardia Status: Acute Category: Medical Code(s): R00.0 - Tachycardia, unspecified (7) Abnormal chest x-ray Status: Acute Category: Medical Code(s): R93.89 - Abnormal findings on diagnostic imaging of other specified body structures - Assessment and plan all Dx Assessment and Plan for all problems:: #Acute hypoxic respiratory failure #COVID-19 pneumonia: #Pulmonary embolus: 65-year-old male, no significant prior respiratory complaints, no significant smoking history. Not yet vaccinated for COVID-19 pneumonia. Present with worsening fatigue malaise and respiratory distress. CRP elevated at 140. D-dimer at 0.92. CTA showed right lower lobe pulmonary emboli showed bilateral diffuse groundglass opacities along with lower lobe patchy consolidation/atelectasis. Sputum culture less than 10 WBC, gram-positive cocci, yeast and hyphae, yeast ID request place on 04/18/21 Echocardiogram, normal EF with inconclusive diastolic parameters. Completed 7 days of ceftriaxone and 5 days of azithromycin. Sputum cultures no growth along with blood cultures. Nasal MRSA PCR negative. Respiratory status continued to worsen and eventually intubated for mechanical ventilatory support on 04/23/2021. Interval update:- Respiratory status remained relatively stable and critical post intubation. Continue to remain critical on high ventilator settings. Have discussed with patient and familyyesterday regarding the current clinical condition and addressed all of their concerns and questions Plan: -Intubated and sedated. Continue Versed and fentanyl. Deep sedation. Improving complaince plateau pressure at 25. ABG from this moderately stable pH is 7.3, PCO2 63 and PO2 73.2. He continued to remain on 65% FiO2. Repeat chest x-ray relatively stable with respiratory distress, worsening subcutaneous emphysema. No obvious evidence of pneumothorax. Continue Zosyn. Nasal MRS PCR negative. Sputum cultures from 04/23/2021 reported to grow staph hemolyticus after
[2021-05-01 09:37] LABS: Hemoglobin 9.1 g/dL (14.1-18.0)
--- NOTE | 2021-05-01 10:09 | HMH.ACPN2 ---
Internal Medicine - PN: Subj *Date: 05/01/21 *Time: 09:20 Interval history: sq air worsening. pt on vent sedated Exam Vital signs and Labs for Last 24 Hours: Temp Pulse Resp BP Pulse Ox 99.2 F 110 H 30 H 131/74 96 05/01/21 07:52 05/01/21 08:00 05/01/21 08:00 05/01/21 08:00 05/01/21 08:00 Laboratory Results - last 24 hr 04/29/21 17:52: POC Glucose 311 H* 04/30/21 10:20: APTT 67.3 H* 04/30/21 11:10: Specimen Source a-line, O2 % 65, ABG pH 7.36, ABG pCO2 63.0 H, ABG pO2 110.7 H, ABG HCO3 34.9 H, ABG Total CO2 36.8 H, ABG O2 Saturation 98, ABG Base Excess 9.4 H, Willian Test n/a, ABG Lactate 1.3, Vent Rate 26, Tidal Volume 440, PEEP 14 04/30/21 11:27: POC Glucose 251 H 04/30/21 18:00: APTT 57.8 H* 04/30/21 21:47: POC Glucose 244 H 05/01/21 06:50: WBC 24.0 H*, RBC 3.06 L, Hgb 9.1 L D, Hct 30.7 L, MCV 100.1 H, MCH 29.7, MCHC 29.7 L, RDW 14.1, Plt Count 640 H D, MPV 9.5, Neut % (Auto) 92.7 H, Lymph % (Auto) 4.3 L, [place] % (Auto) 2.7, Eos % (Auto) 0.0 L, Baso % (Auto) 0.2, Neut # (Auto) 22.3 H, Lymph # (Auto) 1.0, [place] # (Auto) 0.7, Eos # (Auto) 0.0, Baso # (Auto) 0.1, Total Counted 100, Neutrophils % (Manual) 94 H, Lymphocytes % (Manual) 6 L, Platelet Estimate Normal, Hypochromasia 1+, Macrocytosis 1+ 05/01/21 06:50: Sodium 147 H, Potassium 5.1, Chloride 106, Carbon Dioxide 39 H, Anion Gap 7.1, BUN 59 H, Creatinine 1.30 H, Estimated Creat Clear 81, Estimated GFR 55 L, Est GFR ( Amer) 67, Glucose 237 H, Calcium 8.1 L, Total Bilirubin 0.5, AST 38, ALT 31, Alkaline Phosphatase 97, Total Protein 6.5, Albumin 2.9 L, Globulin 3.6 H, Albumin/Globulin Ratio 0.8 L 05/01/21 06:50: APTT 47.9 H 05/01/21 07:39: Specimen Source art line, O2 % 65, ABG pH 7.35, ABG pCO2 63.0 H, ABG pO2 73.2 L, ABG HCO3 34.3 H, ABG Total CO2 36.2 H, ABG O2 Saturation 94, ABG Base Excess 8.8 H, Willian Test n/a, ABG Lactate 1.6, Vent Rate 26, Tidal Volume 440, PEEP 14 I & O for Last 24 hours: Intake & Output 04/28/21 04/29/21 04/30/21 05/01/21 11:59 11:59 11:59 11:59 Intake Total 2919.167 / 2994.167 3245.833 / 3318.833 2618.333 / 2618.333 2577.333 / 2577.333 Output Total 2485 / 3285 5680 / 5880 1959 1350 / 1350 Balance 434.167 / -290.833 -2434.167 / -2561.167 658.333 / 974.433 3564.333 / 1227.333 Weight 227 lb 8.273 oz 227 lb 8.273 oz 227 lb 1.218 oz 228 lb 9.91 oz Microbiology Reports for the Last 24 Hours: Microbiology 04/30/21 11:51 Sputum - Endotracheal Tube Aspirate Gram Stain - Final - Constitutional no acute distress - *Routine HEENT Exam Head: Present: normocephalic ENT: Present: mucous membranes moist - *Routine Neck Exam Present: supple Comments: sq air - Routine Chest/Breast/Axilla Exam Comments: sq air from neck to diaphragm, edema to scrotum and penis - *Routine Respiratory Exam Present: patient mechanically ventilated - *Routine Cardiovascular Exam Present: tachycardia - *Routine Abdominal Exam Present: soft, normoactive bowel sounds - *Routine Extremities Exam Present: normal capillary refill - *Routine Skin Exam Present: intact - *Routine Neurological Exam sedated Assessment and Plan (1) Pneumonia due to COVID-19 virus Status: Acute Category: Medical Code(s): U07.1 - COVID-19; J12.82 - Pneumonia due to coronavirus disease 2019 (2) Respiratory failure with hypoxia Status: Acute Qualifiers: Chronicity: acute Qualified Code(s): J96.01 - Acute respiratory failure with hypoxia Category: Medical Code(s): J96.91 - Respiratory failure, unspecified with hypoxia (3) Pulmonary embolism Status: Acute Qualifiers: Pulmonary embolism type: single subsegmental (without acute cor pulmonale) Qualified Code(s): I26.93 - Single subsegmental pulmonary embolism without acute cor pulmonale Category: Medical Code(s): I26.99 - Other pulmonary embolism without acute cor pulmonale (4) Subcutaneous air Status: Acute Category: Medical Code(s): T79.7XXA -
--- NOTE | 2021-05-01 10:49 | DIET.NUTRFU ---
RD visited nursing staff to discuss patient. TF was decreased to 20ml/hr, not meeting his nutritional needs. Per nursing, patient is not doing well, increased swelling on one side of his body. Labs reviewed.
[2021-05-01 11:27] LABS: POC Glucose,Bedside 212 (70-110)
[2021-05-01 15:00] LABS: PTT Heparin (inpatient only) 80.9 Seconds (23.6-34.0)
--- NOTE | 2021-05-01 15:00 | PC.NURSE ---
received call from lab reporting PTT 80.9. Name and verified. Pharmacy ([facility]) notified. Heparin gtt decreased to 1700 units/hr.
[2021-05-01 20:49] LABS: POC Glucose,Bedside 274 (70-110)
[2021-05-01 20:49] LABS: POC Glucose,Bedside 330 (70-110)
[2021-05-01 20:49] LABS: POC Glucose,Bedside 324 (70-110)
[2021-05-01 22:15] LABS: PTT Heparin (inpatient only) 85.2 Seconds (23.6-34.0)
--- NOTE | 2021-05-01 22:36 | PC.NURSE ---
contacted nightwatch about PTT result of 85.2, they stated to decrease to 1500 units/hour, draw another PTT at 0500
[2021-05-02] VITALS (36 sets, daily range): BP systolic 105–165; BP diastolic 64–92; PULSE 79–125; RESP 26–105; TEMP 37.1–37.9; O2SAT 30–100; BMI 30.6
--- NOTE | 2021-05-02 06:00 | XR_ITS ---
PROCEDURE INFORMATION: Exam: XR Chest Exam date and time: 05/02/2021 6:00 AM Age: 65 years old Clinical indication: Device placement; Ett placement (vent status); Patient HX: Covid +; Additional info: Daily while intubated TECHNIQUE: Imaging protocol: XR of the chest. Views: 1 view. COMPARISON: CR XR CHEST PORTABLE 05/01/2021 5:00 AM FINDINGS: Tubes, catheters and devices: Endotracheal tube terminates approximately 5.5 cm above the tami. NG tube passes into the stomach. Lungs: Patchy bibasilar airspace opacities, similar to prior. Pleural spaces: No substantial pleural effusion. No discernible pneumothorax. Heart/Mediastinum: Unremarkable. No cardiomegaly. Bones/joints: Unremarkable. Soft tissues: Similar subcutaneous emphysema over the thorax and neck. IMPRESSION: 1. Similar patchy bibasilar airspace opacities. 2. Similar subcutaneous emphysema. No discernible pneumothorax. 3. Endotracheal tube terminates approximately 5.5 cm above the tami.
[2021-05-02 06:19] LABS: Basophils % 0.2 % (0.1-2.0); Hematocrit 25.7 % (42.0-52.0); Lymphocytes # 0.6 K/mm3 (0.7-4.5); Lymphocytes % 2.5 % (10-50); Mean Corpuscular HGB Conc 30.2 g/dL (31.8-35.4); Mean Corpuscular Hemoglobin 30.2 pg (27.0-31.2); Mean Corpuscular Volume 99.9 fl (80-94); Mean Platelet Volume 9.6 fl (7.4-10.4); Monocytes # 0.6 K/mm3 (0.1-1.0); Monocytes % 2.7 % (1.7-9.3); Neutrophils % 94.7 % (37.0-80.0); Platelet Count 552 K/mm3 (142-424); Red Blood Count 2.57 M/mm3 (4.60-6.20); Red Cell Distribution Width 15.1 % (11.5-17.5); White Blood Count 23.2 K/mm3 (4.8-10.8)
[2021-05-02 06:40] LABS: Alanine Aminotransferase 29 U/L (12-78); Albumin Level 2.7 g/dl (3.5-5.0); Albumin/Globulin Ratio 0.8 (1.1-1.8); Alkaline Phosphatase 93 U/L (38-126); Anion Gap 9.1 mEq/L (5-15); Aspartate Amino Transferase 36 U/L (17-59); Bilirubin,Total 0.8 mg/dl (0.2-1.3); Calcium 7.6 mg/dl (8.4-10.2); Carbon Dioxide 36 mmol/L (22.0-30.0); Chloride 106 mmol/L (98-107); Creatinine Clearance Estimated 32 mL/min (50-200); Estimated Glomerular Filt Rate 19 ml/min (>60); GFR (African American) 23 ML/MIN (>60); Globulin 3.3 g/dL (1.3-3.2); Glucose 310 mg/dl (74-100); Potassium 5.1 mmoL/L (3.5-5.1); Sodium 146 mmol/L (136-145)
[2021-05-02 06:48] LABS: MANUAL DIFFERENTIAL MANUAL DIFFERENTIAL (MANUAL DIFF)
[2021-05-02 07:35] LABS: PTT Heparin (inpatient only) 98.9 Seconds (23.6-34.0)
[2021-05-02 07:48] LABS: Hypochromasia 1+; Lymphocytes % 3 % (10-50); Monocytes % 2 % (2-9); Neutrophils % 95 % (42-76); Total Cells Counted 100
[2021-05-02 07:49] LABS: Macrocytosis 1+; Platelet Estimate Normal
[2021-05-02 07:51] LABS: ABG Base Excess 2.9 mmol/L (-2.4-2.3); ABG HCO3 28.8 mmhg (22.0-26.0); ABG Oxygen Saturation 98 % (90-100); ABG PH 7.33 mmol/L (7.35-7.45); ABG TCO2 30.5 mmhg (23-27)
[2021-05-02 07:54] LABS: Oxygen 65 %; PEEP 14; Source ALINE; Tidal Volume 440; Vent Rate 26
[2021-05-02 07:55] LABS: ABG PCO2 55.4 mmhg (35.0-45.0); Lactate Arterial 1.2 mmol/L (0.4-2.0)
[2021-05-02 08:08] LABS: Blood Urea Nitrogen 84 mg/dl (9-20)
[2021-05-02 08:27] LABS: Hemoglobin 7.8 g/dL (14.1-18.0)
--- NOTE | 2021-05-02 09:03 | ECG_ITS ---
APPROVED REPORT Exam: Resting ECG HR:119 bpm ECG Measurements Heart Rate 119 AXES OK 112 P 52 QRSd 91 QRS 57 QT 339 T 27 QTc 410 Conclusion SINUS TACHYCARDIA WITH SHORT OK INTERVAL NONSPECIFIC T-WAVE ABNORMALITY ABNORMAL RHYTHM ECG UNCONFIRMED REPORT Electronically signed by : Cirilo Carrasquillo MD 05/06/2021 17:32:57
--- NOTE | 2021-05-02 11:07 | HMH.CNCARD ---
History of Present Illness Consult date: 05/02/21 Requesting physician: Beny Recio Chief complaint: tachycardia History of present illness: This is a 65-year-old white gentleman who presented to the emergency department and was admitted with Covid and a right lower lobe pulmonary embolus. The patient is currently intubated on on the ventilator. He is getting sedation. He appears to be in no distress. The patient has continued to remain intubated and on the ventilator since 04/23/2021. He remains critical and on high ventilator settings. The patient became tachycardic overnight and cardiology was consulted. He does have a normal ejection fraction on echocardiogram with no significant wall motion abnormalities or valvular disease. [facility] History I have reviewed the patient's past medical history: Yes *Have you ever received a pneumonia vaccine?: No *Have you received a flu vaccine this season?: No - *Social History Last grade of school completed: Some college Smoking Status: Never smoker Alcohol Intake: never *Occupational Status:: employed Household Members: spouse *Travel in the last 8 weeks: None Family Hx:: No significant family history Meds Home Medications Medication Instructions Recorded Confirmed Type No Known Home Medications 04/14/21 04/14/21 History Allergies Allergy/AdvReac Type Severity Reaction Status Date / Time No Known Allergies Allergy Verified 04/14/21 18:51 Exam Vital signs and Labs for Last 24 Hours: Temp Pulse Resp BP Pulse Ox 99.8 F H 115 H 28 H 152/71 H 97 05/02/21 04:00 05/02/21 07:00 05/02/21 07:00 05/02/21 07:00 05/02/21 07:00 Laboratory Results - last 24 hr 05/01/21 05:34: POC Glucose 212 H 05/01/21 12:00: POC Glucose 324 H* 05/01/21 14:10: APTT 80.9 H* 05/01/21 16:17: POC Glucose 330 H* 05/01/21 20:39: POC Glucose 274 H 05/01/21 21:00: APTT 85.2 H* 05/02/21 05:40: WBC 23.2 H*, RBC 2.57 L, Hgb 7.8 L D, Hct 25.7 L, MCV 99.9 H, MCH 30.2, MCHC 30.2 L, RDW 15.1, Plt Count 552 H, MPV 9.6, Neut % (Auto) 94.7 H, Lymph % (Auto) 2.5 L, [place] % (Auto) 2.7, Eos % (Auto) 0.0 L, Baso % (Auto) 0.2, Neut # (Auto) 22.0 H, Lymph # (Auto) 0.6 L, [place] # (Auto) 0.6, Eos # (Auto) 0.0, Baso # (Auto) 0.0, Total Counted 100, Neutrophils % (Manual) 95 H, Lymphocytes % (Manual) 3 L, Monocytes % (Manual) 2, Platelet Estimate Normal, Hypochromasia 1+, Macrocytosis 1+ 05/02/21 05:40: Sodium 146 H, Potassium 5.1, Chloride 106, Carbon Dioxide 36 H, Anion Gap 9.1, BUN 84 H D, Creatinine 3.30 H D, Estimated Creat Clear 32, Estimated GFR 19 L*, Est GFR ( Amer) 23 L D, Glucose 310 H D, Calcium 7.6 L, Total Bilirubin 0.8, AST 36, ALT 29, Alkaline Phosphatase 93, Total Protein 6.0 L, Albumin 2.7 L, Globulin 3.3 H, Albumin/Globulin Ratio 0.8 L 05/02/21 05:40: APTT 98.9 H* 05/02/21 05:40: Blood Type Confirm O Positive 05/02/21 06:00: Specimen Source Sandra, O2 % 65, ABG pH 7.33 L, ABG pCO2 55.4 H, ABG pO2 116.0 H, ABG HCO3 28.8 H, ABG Total CO2 30.5 H, ABG O2 Saturation 98, ABG Base Excess 2.9 H, ABG Lactate 1.2, Vent Rate 26, Tidal Volume 440, PEEP 14 05/02/21 08:55: Blood Type O Positive, Antibody Screen Negative, Crossmatch ([facility]) See Detail I & O for Last 24 hours: Intake & Output 04/29/21 04/30/21 05/01/21 05/02/21 23:59 23:59 23:59 23:59 Intake Total 3027.166 / 3091.166 2366.500 / 2425.500 2994.333 / 3065.333 925.666 / 925.666 Output Total 2074 / 2134 1300 / 1365 1190 / 1220 240 / 240 Balance 952.166 / 201.464 5520.500 / 7831.681 4872.333 / 1845.333 685.666 / 685.666 Weight 227 lb 8.273 oz 227 lb 1.218 oz 228 lb 9.91 oz 231 lb 0.711 oz Microbiology Reports for the Last 24 Hours: Microbiology 04/30/21 11:51 Sputum - Endotracheal Tube Aspirate Gram Stain - Final 04/30/21 11:51 Sputum - Endotracheal Tube Aspirate Sputum Culture - Preliminary Narrative: Telemetry strip shows sinus tach with a rate of 111. - Constitutional no acute distress, obese - *Routine HEENT Exam He
--- NOTE | 2021-05-02 11:36 | PC.NURSE ---
Holding on blood transfusion at this time per Alfred LYLES
--- NOTE | 2021-05-02 13:46 | DIET.NUTRFU ---
Spoke to Dr. Rosado and decided based on renal fxn and protein needs, Nepro would better met nutritional needs. Crrently tolerating 20ml/hr, not proning anymore so TF is running ATC. Renech to Nepro with goal rate of 55ml/hr to provide 2277kcal, 102.4gm protein and 919 free water with flush of 900ml, total fluid 1819ml. Currently receiving IVF, will adjust flush if still in place when reach goals. Labs reviewed today at Na 146H, K 5.1, BUN 84, Cr 3.3, glucose 310H. He has insulin in place fopr DM control and Nepro is carbsteady. Nursing will increase as tolerated, he still appears to be holding air on one side of body along with face. X-ray ordered to facial areas.
--- NOTE | 2021-05-02 14:01 | XR_ITS ---
FINAL REPORT CLINICAL HISTORY: rt side facial swelling after intubation FINDINGS: Multiple views of the facial bones were performed. There is no acute fracture. Bony alignment appears normal. The visualized sinuses are clear. There is massive subcutaneous emphysema in the cervical and facial regions. IMPRESSION: Massive subcutaneous emphysema in the cervical and facial regions. Reviewed, Interpreted and Dictated by Boubacar Lieberman MD Transcribed by Rosalio Muñoz Authenticated by Boubacar Lieberman MD on 05/02/2021 03:17:31 PM [facility]
--- NOTE | 2021-05-02 14:04 | HMH.PULMPN ---
Internal Medicine - PN: Subj *Date: 05/02/21 *Time: 14:04 Interval history: No acute respiratory events overnight. Patient continued worsening renal function and drop in hemoglobin Exam - Constitutional Constitutional:: Absent: no acute distress, comfortable - HENMT Exam HENMT: Present: normocephalic, atraumatic Comment:: Sub Q emphysema worsenign around eyelids and neck - Eye Exam Eyes:: Present: normal appearance both eyes and related structures - Neck Exam Neck:: Present: normal visual inspection - Respiratory Exam Respiratory:: Present: respiratory distress, rales Comments: Sub Q emphysema worsenign - Cardiovascular Exam Cardiac:: Present: S1, S2 - GI Exam GI:: Present: soft - Skin Exam Skin: Present: warm, no rash - Neurological Exam Neurological: Absent: alert, awake, normal cognition - Extremities Exam Extremities: Present: no cyanosis, no clubbing, edema Comments: Rt > Lt Assessment and Plan (1) Tachycardia Status: Acute Category: Medical Code(s): R00.0 - Tachycardia, unspecified (2) Pneumonia due to COVID-19 virus Status: Acute Category: Medical Code(s): U07.1 - COVID-19; J12.82 - Pneumonia due to coronavirus disease 2019 (3) Respiratory failure with hypoxia Status: Acute Qualifiers: Chronicity: acute Qualified Code(s): J96.01 - Acute respiratory failure with hypoxia Category: Medical Code(s): J96.91 - Respiratory failure, unspecified with hypoxia (4) Pulmonary embolism Status: Acute Qualifiers: Pulmonary embolism type: single subsegmental (without acute cor pulmonale) Qualified Code(s): I26.93 - Single subsegmental pulmonary embolism without acute cor pulmonale Category: Medical Code(s): I26.99 - Other pulmonary embolism without acute cor pulmonale (5) Subcutaneous air Status: Acute Category: Medical Code(s): T79.7XXA - Traumatic subcutaneous emphysema, initial encounter (6) Pneumothorax Status: Acute Category: Medical Code(s): J93.9 - Pneumothorax, unspecified (7) Abnormal chest x-ray Status: Acute Category: Medical Code(s): R93.89 - Abnormal findings on diagnostic imaging of other specified body structures - Assessment and plan all Dx Assessment and Plan for all problems:: #Acute hypoxic respiratory failure #COVID-19 pneumonia: #Pulmonary embolus: 65-year-old male, no significant prior respiratory complaints, no significant smoking history. Not yet vaccinated for COVID-19 pneumonia. Present with worsening fatigue malaise and respiratory distress. CRP elevated at 140. D-dimer at 0.92. CTA showed right lower lobe pulmonary emboli showed bilateral diffuse groundglass opacities along with lower lobe patchy consolidation/atelectasis. Sputum culture less than 10 WBC, gram-positive cocci, yeast and hyphae, yeast ID request place on 04/18/21 Echocardiogram, normal EF with inconclusive diastolic parameters. Completed 7 days of ceftriaxone and 5 days of azithromycin. Sputum cultures no growth along with blood cultures. Nasal MRSA PCR negative. Respiratory status continued to worsen and eventually intubated for mechanical ventilatory support on 04/23/2021. Interval update:- Respiratory status remained relatively stable and critical post intubation. Continue to remain critical on high ventilator settings. Family updated today Plan: -Intubated and sedated. Continue Versed and fentanyl. Improving complaince. ABG continue to improving oxygenation and improving hypercarbic respiratory failure. FiO2 weaned to 60% this morning and PEEP weaned to 12. Repeat chest x-ray relatively stable. ET tube 5 cm above tami. worsening subcutaneous emphysema. No obvious evidence of pneumothorax. Continue Zosyn day 8. Nasal MRS PCR negative. Sputum cultures from 04/23/2021 reported to grow staph hemolyticus after 6 days which is methicillin-resistant. F/U tracheal aspirate and blood cultures. Completed 14 days of baricitinib and dexamet
[2021-05-02 14:25] LABS: POC Glucose,Bedside 377 (70-110)
--- NOTE | 2021-05-02 14:48 | HMH.ACPN2 ---
Internal Medicine - PN: Gretchen *Date: 05/02/21 *Time: 09:10 Interval history: on vent sedated. Exam Vital signs and Labs for Last 24 Hours: Temp Pulse Resp BP Pulse Ox 100.1 F H 121 H 26 H 153/73 H 99 05/02/21 12:00 05/02/21 12:02 05/02/21 12:02 05/02/21 12:00 05/02/21 12:02 Laboratory Results - last 24 hr 05/01/21 12:00: POC Glucose 324 H* 05/01/21 14:10: APTT 80.9 H* 05/01/21 16:17: POC Glucose 330 H* 05/01/21 20:39: POC Glucose 274 H 05/01/21 21:00: APTT 85.2 H* 05/02/21 05:40: WBC 23.2 H*, RBC 2.57 L, Hgb 7.8 L D, Hct 25.7 L, MCV 99.9 H, MCH 30.2, MCHC 30.2 L, RDW 15.1, Plt Count 552 H, MPV 9.6, Neut % (Auto) 94.7 H, Lymph % (Auto) 2.5 L, [place] % (Auto) 2.7, Eos % (Auto) 0.0 L, Baso % (Auto) 0.2, Neut # (Auto) 22.0 H, Lymph # (Auto) 0.6 L, [place] # (Auto) 0.6, Eos # (Auto) 0.0, Baso # (Auto) 0.0, Total Counted 100, Neutrophils % (Manual) 95 H, Lymphocytes % (Manual) 3 L, Monocytes % (Manual) 2, Platelet Estimate Normal, Hypochromasia 1+, Macrocytosis 1+ 05/02/21 05:40: Sodium 146 H, Potassium 5.1, Chloride 106, Carbon Dioxide 36 H, Anion Gap 9.1, BUN 84 H D, Creatinine 3.30 H D, Estimated Creat Clear 32, Estimated GFR 19 L*, Est GFR ( Amer) 23 L D, Glucose 310 H D, Calcium 7.6 L, Total Bilirubin 0.8, AST 36, ALT 29, Alkaline Phosphatase 93, Total Protein 6.0 L, Albumin 2.7 L, Globulin 3.3 H, Albumin/Globulin Ratio 0.8 L 05/02/21 05:40: APTT 98.9 H* 05/02/21 05:40: Blood Type Confirm O Positive 05/02/21 06:00: Specimen Source Sandra, O2 % 65, ABG pH 7.33 L, ABG pCO2 55.4 H, ABG pO2 116.0 H, ABG HCO3 28.8 H, ABG Total CO2 30.5 H, ABG O2 Saturation 98, ABG Base Excess 2.9 H, ABG Lactate 1.2, Vent Rate 26, Tidal Volume 440, PEEP 14 05/02/21 08:55: Blood Type O Positive, Antibody Screen Negative, Crossmatch (AHG) See Detail 05/02/21 12:21: POC Glucose 377 H* I & O for Last 24 hours: Intake & Output 04/30/21 05/01/21 05/02/21 05/03/21 11:59 11:59 11:59 11:59 Intake Total 2618.333 / 2618.333 2647.333 / 2797.333 2798.166 / 2798.166 Output Total 1959 1430 / 1510 670 / 670 Balance 658.333 / 585.368 9057.333 / 9091.813 7311.166 / 2128.166 Weight 227 lb 1.218 oz 228 lb 9.91 oz 231 lb 0.711 oz Microbiology Reports for the Last 24 Hours: Microbiology 04/30/21 11:51 Sputum - Endotracheal Tube Aspirate Gram Stain - Final 04/30/21 11:51 Sputum - Endotracheal Tube Aspirate Sputum Culture - Preliminary 04/30/21 12:36 Blood Blood Culture - Preliminary NO GROWTH AFTER 48 HOURS 04/30/21 12:36 Blood Blood Culture - Preliminary NO GROWTH AFTER 48 HOURS - Constitutional no acute distress - *Routine HEENT Exam Head: Present: normocephalic Eye: Present: PERRL ENT: Present: mucous membranes moist Comments: face swollen and fuffy, poss sq air - *Routine Neck Exam Present: supple. Absent: lymphadenopathy Comments: sq air present - *Routine Respiratory Exam Present: patient mechanically ventilated - *Routine Cardiovascular Exam Present: tachycardia - *Routine Abdominal Exam Present: soft, normoactive bowel sounds. Absent: tenderness - *Routine Extremities Exam Absent: cyanosis, clubbing, edema - *Routine Skin Exam Present: intact - *Routine Neurological Exam sedated Assessment and Plan (1) Tachycardia Status: Acute Category: Medical Code(s): R00.0 - Tachycardia, unspecified (2) Pneumonia due to COVID-19 virus Status: Acute Category: Medical Code(s): U07.1 - COVID-19; J12.82 - Pneumonia due to coronavirus disease 2019 (3) Respiratory failure with hypoxia Status: Acute Qualifiers: Chronicity: acute Qualified Code(s): J96.01 - Acute respiratory failure with hypoxia Category: Medical Code(s): J96.91 - Respiratory failure, unspecified with hypoxia (4) Pulmonary embolism Status: Acute Qualifiers: Pulmonary embolism type: single subsegmental (without acute cor pulmonal
[2021-05-02 14:58] LABS: Basophils % 0.2 % (0.1-2.0); Hematocrit 23.5 % (42.0-52.0); Hemoglobin 7.3 g/dL (14.1-18.0); Lymphocytes # 0.4 K/mm3 (0.7-4.5); Lymphocytes % 1.8 % (10-50); Mean Corpuscular HGB Conc 30.9 g/dL (31.8-35.4); Mean Corpuscular Hemoglobin 30.8 pg (27.0-31.2); Mean Corpuscular Volume 99.9 fl (80-94); Mean Platelet Volume 9.6 fl (7.4-10.4); Monocytes # 0.6 K/mm3 (0.1-1.0); Monocytes % 2.8 % (1.7-9.3); Neutrophils # 19.8 K/mm3 (1.8-7.8); Neutrophils % 95.1 % (37.0-80.0); Platelet Count 587 K/mm3 (142-424); Red Blood Count 2.35 M/mm3 (4.60-6.20); Red Cell Distribution Width 15.3 % (11.5-17.5); White Blood Count 20.8 K/mm3 (4.8-10.8)
[2021-05-02 14:59] LABS: MANUAL DIFFERENTIAL MANUAL DIFFERENTIAL (MANUAL DIFF)
[2021-05-02 15:13] LABS: Anisocytosis 1+; Hypochromasia 2+; Lymphocytes % 5 % (10-50); Monocytes % 2 % (2-9); Neutrophils % 93 % (42-76); Platelet Estimate Moderate Increase; Total Cells Counted 100
[2021-05-02 15:14] LABS: Macrocytosis 1+
[2021-05-02 19:20] LABS: PTT Heparin (inpatient only) 64.3 Seconds (23.6-34.0)
--- NOTE | 2021-05-02 19:42 | PC.NURSE ---
Notified [facility] of PTT level. Awaiting further orders for gtt rate.
--- NOTE | 2021-05-02 19:45 | PC.NURSE ---
No change to Heparin gtt per [facility]. Draw a repeat ptt @ 0100.
[2021-05-02 21:07] LABS: POC Glucose,Bedside 349 (70-110)
[2021-05-02 21:27] LABS: Hematocrit 22.4 % (42.0-52.0)
[2021-05-02 21:29] LABS: Hemoglobin 6.7 g/dL (14.1-18.0)
--- NOTE | 2021-05-02 21:32 | PC.NURSE ---
Received critical H/H of 6.7. Dr Rodriguez paged at this time.
--- NOTE | 2021-05-02 22:22 | PC.NURSE ---
Spoke to daughter at this time, gave her a detailed update on patient.
--- NOTE | 2021-05-02 22:32 | PC.NURSE ---
Verbal consent for blood transfusion obtained over the phone at this time. This RN spoke to pts , addressed any questions regarding blood transfusion, and discussed risks involved.
[2021-05-03] VITALS (37 sets, daily range): BP systolic 102–128; BP diastolic 51–72; PULSE 103–121; RESP 26–28; TEMP 37.1–38.8; O2SAT 94–99; BMI 30.7; BMI 30.8
[2021-05-03 01:20] LABS: POC Glucose,Bedside 335 (70-110)
[2021-05-03 01:20] LABS: POC Glucose,Bedside 321 (70-110)
[2021-05-03 02:07] LABS: PTT Heparin (inpatient only) 66.6 Seconds (23.6-34.0)
--- NOTE | 2021-05-03 02:07 | PC.NURSE ---
Received PTT results from lab. Notified [facility] for order change.
--- NOTE | 2021-05-03 02:10 | PC.NURSE ---
No change in Heparin gtt per [facility], redraw PTT at 0800.
--- NOTE | 2021-05-03 04:54 | PC.NURSE ---
Remains intubated and sedated. Has received 1 unit of PRBC's. Remains sinus tach on telemetry. Sub q air unchanged. LS remains diminished. Bilateral hands noted to have pitting edema. Good urine output noted this shift. No bm this shift. Tube feeds held earlier due to excess amounts of residual. OG remains in place and patent. VSS. No acute changes this shift, will continue to monitor.
--- NOTE | 2021-05-03 05:59 | PC.NURSE ---
It was noted during pts morning xrays he had some brown emesis like drainage coming from his mouth when turning. Assessed patient during turning for a partial bath and posterior skin check, he had copious amounts of brown/black drainage from his mouth. Pt OG tube was attached to wall suction, and pt had 2950ml out of dark brown/black gastric contents. Dr Rodriguez was notified via phone. gave the following orders: Continue heparin gtt Hold tube feeds LIWS to OG tube. Proceed with 2nd unit of PRBC's thats been ordered. Orders repeated and verified. Will continue to monitor patient.
--- NOTE | 2021-05-03 06:00 | XR_ITS ---
PROCEDURE INFORMATION: Exam: XR Chest Exam date and time: 05/03/2021 6:00 AM Age: 65 years old Clinical indication: Device placement; Ett placement (vent status); Patient HX: Covid +; Additional info: Daily while intubated TECHNIQUE: Imaging protocol: XR of the chest. Views: 1 view. COMPARISON: CR XR CHEST PORTABLE 05/02/2021 4:38 AM FINDINGS: Tubes, catheters and devices: The ET tube and nasogastric tube are unchanged. Lungs: Patchy bilateral airspace disease is not significantly changed. Pleural spaces: Unremarkable. No pleural effusion. No pneumothorax. Heart/Mediastinum: Unremarkable. No cardiomegaly. Bones/joints: Unremarkable. Soft tissues: Extensive subcutaneous emphysema is again noted. IMPRESSION: Stable exam.
[2021-05-03 06:22] LABS: Anion Gap 12.2 mEq/L (5-15); Calcium 7.2 mg/dl (8.4-10.2); Carbon Dioxide 34 mmol/L (22.0-30.0); Chloride 106 mmol/L (98-107); Creatinine Clearance Estimated 22 mL/min (50-200); Estimated Glomerular Filt Rate 12 ml/min (>60); GFR (African American) 15 ML/MIN (>60); Glucose 334 mg/dl (74-100); Sodium 146 mmol/L (136-145)
[2021-05-03 06:24] LABS: Basophils # 0.1 K/mm3 (0-0.2); Basophils % 0.2 % (0.1-2.0); Hematocrit 24.5 % (42.0-52.0); Lymphocytes # 0.7 K/mm3 (0.7-4.5); Mean Corpuscular HGB Conc 30.1 g/dL (31.8-35.4); Mean Corpuscular Hemoglobin 29.2 pg (27.0-31.2); Mean Corpuscular Volume 97.2 fl (80-94); Mean Platelet Volume 9.4 fl (7.4-10.4); Monocytes # 0.8 K/mm3 (0.1-1.0); Monocytes % 3.6 % (1.7-9.3); Neutrophils # 20.7 K/mm3 (1.8-7.8); Neutrophils % 93.2 % (37.0-80.0); Platelet Count 533 K/mm3 (142-424); Red Blood Count 2.52 M/mm3 (4.60-6.20); White Blood Count 22.2 K/mm3 (4.8-10.8)
[2021-05-03 06:49] LABS: Hemoglobin 7.4 g/dL (14.1-18.0)
[2021-05-03 06:51] LABS: MANUAL DIFFERENTIAL MANUAL DIFFERENTIAL (MANUAL DIFF)
[2021-05-03 06:54] LABS: Blood Urea Nitrogen 116 mg/dl (9-20); Potassium 6.2 mmoL/L (3.5-5.1)
--- NOTE | 2021-05-03 07:02 | PC.NURSE ---
critical labs reported to Dr. Recio, no new orders given.
[2021-05-03 08:16] LABS: ABG HCO3 31.1 mmhg (22.0-26.0); ABG Oxygen Saturation 95 % (90-100); ABG PH 7.26 mmol/L (7.35-7.45); ABG PO2 83.6 mmhg (80-100); ABG TCO2 33.3 mmhg (23-27); Lactate Arterial 1.4 mmol/L (0.4-2.0)
[2021-05-03 08:19] LABS: Oxygen 60 %
[2021-05-03 08:20] LABS: Allen's Test Patient Unable; PEEP 12; Source Right Radial; Tidal Volume 440; Vent Rate 26
[2021-05-03 08:21] LABS: ABG PCO2 71.4 mmhg (35.0-45.0)
[2021-05-03 08:46] LABS: PTT Heparin (inpatient only) 66.9 Seconds (23.6-34.0)
[2021-05-03 08:58] LABS: Lymphocytes % 4 % (10-50); Monocytes % 4 % (2-9); Neutrophils % 92 % (42-76); Nucleated Red Blood Cells 2; Total Cells Counted 100
[2021-05-03 09:00] LABS: Hypochromasia 2+; Platelet Estimate Normal
--- NOTE | 2021-05-03 09:09 | HMH.PULMPN ---
Internal Medicine - PN: Subj *Date: 05/03/21 *Time: 13:33 Interval history: Patient overnight noted to have worsening hemodynamics, worsening renal function GI bleed and worsening oxygenation. Exam - Constitutional Constitutional:: Absent: no acute distress, comfortable - HENMT Exam HENMT: Present: normocephalic - Eye Exam Eyes:: Absent: normal appearance both eyes and related structures Comment:: Subcutaneous emphysema - Neck Exam Neck:: Absent: normal visual inspection Comments: Subcutaneous emphysema - Respiratory Exam Respiratory:: Present: respiratory distress, crackles, rales Comments: Subcutaneous emphysema - Cardiovascular Exam Cardiac:: Present: S1, S2 - GI Exam GI:: Present: soft - Skin Exam Skin: Present: warm, no rash - Neurological Exam Neurological: Absent: alert, awake, normal cognition - Extremities Exam Extremities: Present: no cyanosis, no clubbing, edema Assessment and Plan (1) Tachycardia Status: Acute Category: Medical Code(s): R00.0 - Tachycardia, unspecified (2) Pneumonia due to COVID-19 virus Status: Acute Category: Medical Code(s): U07.1 - COVID-19; J12.82 - Pneumonia due to coronavirus disease 2019 (3) Respiratory failure with hypoxia Status: Acute Qualifiers: Chronicity: acute Qualified Code(s): J96.01 - Acute respiratory failure with hypoxia Category: Medical Code(s): J96.91 - Respiratory failure, unspecified with hypoxia (4) Pulmonary embolism Status: Acute Qualifiers: Pulmonary embolism type: single subsegmental (without acute cor pulmonale) Qualified Code(s): I26.93 - Single subsegmental pulmonary embolism without acute cor pulmonale Category: Medical Code(s): I26.99 - Other pulmonary embolism without acute cor pulmonale (5) Subcutaneous air Status: Acute Category: Medical Code(s): T79.7XXA - Traumatic subcutaneous emphysema, initial encounter (6) Pneumothorax Status: Acute Category: Medical Code(s): J93.9 - Pneumothorax, unspecified (7) Abnormal chest x-ray Status: Acute Category: Medical Code(s): R93.89 - Abnormal findings on diagnostic imaging of other specified body structures - Assessment and plan all Dx Assessment and Plan for all problems:: #Acute hypoxic respiratory failure #COVID-19 pneumonia: #Pulmonary embolus: 65-year-old male, no significant prior respiratory complaints, no significant smoking history. Not yet vaccinated for COVID-19 pneumonia. Present with worsening fatigue malaise and respiratory distress. CRP elevated at 140. D-dimer at 0.92. CTA showed right lower lobe pulmonary emboli showed bilateral diffuse groundglass opacities along with lower lobe patchy consolidation/atelectasis. Sputum culture less than 10 WBC, gram-positive cocci, yeast and hyphae, yeast ID request place on 04/18/21 Echocardiogram, normal EF with inconclusive diastolic parameters. Completed 7 days of ceftriaxone and 5 days of azithromycin. Sputum cultures no growth along with blood cultures. Nasal MRSA PCR negative. Respiratory status continued to worsen and eventually intubated for mechanical ventilatory support on 04/23/2021. Interval update:- Patient respiratory status and clinical status remain critical and worsening. Declining hemoglobin status post 1 unit of blood will transfusion. We will hold on heparin drip at this point of time. Renal function continued to worsen with worsening oliguria and hyperkalemia. Patient PEEP was decreased to 12 yesterday, blood gas showed worsening hyercarbia ths morning ABG Patient on the list transfer to an outside hospital however no beds are available so far. Have extensively discussed with the family this morning and have updated them regarding his worsening clinical course, worsening renal function and poor prognosis Plan: -Intubated and sedated. Continue Versed and fentanyl. -Worsening hypercarbia after decreasing the PEEP yesterday. Continue to r
[2021-05-03 11:05] LABS: POC Glucose,Bedside 358 (70-110)
--- NOTE | 2021-05-03 13:12 | HMH.ACPN2 ---
<Doyle Sparks - Last Filed: 05/03/21 14:11> Internal Medicine - PN: Subj *Date: 05/03/21 *Time: 14:11 Exam Vital signs and Labs for Last 24 Hours: Temp Pulse Resp BP Pulse Ox 99.9 F H 117 H 26 H 111/57 L 99 05/03/21 11:29 05/03/21 11:39 05/03/21 11:39 05/03/21 11:00 05/03/21 11:39 Laboratory Results - last 24 hr 05/02/21 06:13: POC Glucose 321 H* 05/02/21 08:55: Blood Type O Positive, Antibody Screen Negative, Crossmatch (AHG) See Detail 05/02/21 12:21: POC Glucose 377 H* 05/02/21 14:32: WBC 20.8 H*, RBC 2.35 L, Hgb 7.3 L, Hct 23.5 L, MCV 99.9 H, MCH 30.8, MCHC 30.9 L, RDW 15.3, Plt Count 587 H, MPV 9.6, Neut % (Auto) 95.1 H, Lymph % (Auto) 1.8 L, [place] % (Auto) 2.8, Eos % (Auto) 0.0 L, Baso % (Auto) 0.2, Neut # (Auto) 19.8 H, Lymph # (Auto) 0.4 L, [place] # (Auto) 0.6, Eos # (Auto) 0.0, Baso # (Auto) 0.0, Total Counted 100, Neutrophils % (Manual) 93 H, Lymphocytes % (Manual) 5 L, Monocytes % (Manual) 2, Platelet Estimate Moderate increase, Hypochromasia 2+, Anisocytosis 1+, Macrocytosis 1+ 05/02/21 16:58: POC Glucose 335 H* 05/02/21 18:51: APTT 64.3 H* 05/02/21 20:46: POC Glucose 349 H* 05/02/21 21:00: Hgb 6.7 L*, Hct 22.4 L 05/03/21 01:00: APTT 66.6 H* 05/03/21 05:55: Sodium 146 H, Potassium 6.2 H* D, Chloride 106, Carbon Dioxide 34 H, Anion Gap 12.2, BUN 116 H* D, Creatinine 4.80 H D, Estimated Creat Clear 22, Estimated GFR 12 L*, Est GFR ( Amer) 15 L* D, Glucose 334 H, Calcium 7.2 L 05/03/21 05:55: WBC 22.2 H*, RBC 2.52 L, Hgb 7.4 L D, Hct 24.5 L, MCV 97.2 H, MCH 29.2, MCHC 30.1 L, RDW 17.0, Plt Count 533 H, MPV 9.4, Neut % (Auto) 93.2 H, Lymph % (Auto) 3.0 L, [place] % (Auto) 3.6, Eos % (Auto) 0.0 L, Baso % (Auto) 0.2, Neut # (Auto) 20.7 H, Lymph # (Auto) 0.7, [place] # (Auto) 0.8, Eos # (Auto) 0.0, Baso # (Auto) 0.1, Total Counted 100, Neutrophils % (Manual) 92 H, Lymphocytes % (Manual) 4 L, Monocytes % (Manual) 4, Nucleated RBCs 2, Platelet Estimate Normal, Hypochromasia 2+ 05/03/21 06:00: Specimen Source Right radial, O2 % 60, ABG pH 7.26 L, ABG pCO2 71.4 H, ABG pO2 83.6, ABG HCO3 31.1 H, ABG Total CO2 33.3 H, ABG O2 Saturation 95, ABG Base Excess 4.0 H, Willian Test Patient unable, ABG Lactate 1.4, Vent Rate 26, Tidal Volume 440, PEEP 12 05/03/21 06:30: POC Glucose 358 H* 05/03/21 08:00: APTT 66.9 H* I & O for Last 24 hours: Intake & Output 05/01/21 05/02/21 05/03/21 05/04/21 11:59 11:59 11:59 11:59 Intake Total 2647.333 / 2797.333 2798.166 / 2798.166 3264.833 / 3264.833 Output Total 1430 / 1510 670 / 670 4160 / 4160 Balance 1217.333 / 5488.420 0662.166 / 2128.166 -895.167 / -895.167 Weight 228 lb 9.91 oz 231 lb 0.711 oz 232 lb 12.93 oz Microbiology Reports for the Last 24 Hours: Microbiology 04/30/21 11:51 Sputum - Endotracheal Tube Aspirate - Final Not Reportable 04/30/21 11:51 Sputum - Endotracheal Tube Aspirate - Final Not Reportable 04/30/21 11:51 Sputum - Endotracheal Tube Aspirate - Final Not Reportable 04/30/21 11:51 Sputum - Endotracheal Tube Aspirate Gram Stain - Final 04/30/21 11:51 Sputum - Endotracheal Tube Aspirate Sputum Culture - Final Yeast 04/30/21 12:36 Blood Blood Culture - Preliminary NO GROWTH AFTER 48 HOURS 04/30/21 12:36 Blood Blood Culture - Preliminary NO GROWTH AFTER 48 HOURS Assessment and Plan (1) Tachycardia Status: Acute Category: Medical Code(s): R00.0 - Tachycardia, unspecified (2) Pneumonia due to COVID-19 virus Status: Acute Category: Medical Code(s): U07.1 - COVID-19; J12.82 - Pneumonia due to coronavirus disease 2019 (3) Respiratory failure with hypoxia Status: Acute Qualifiers: Chronicity: acute Qualified Code(s): J96.01 - Acute respiratory failure with hypoxia Category: Medical Code(s): J96.91 - Respiratory failure, unspecified wit
[2021-05-03 13:30] LABS: Basophils # 0.1 K/mm3 (0-0.2); Basophils % 0.2 % (0.1-2.0); Hematocrit 21.8 % (42.0-52.0); Lymphocytes # 0.5 K/mm3 (0.7-4.5); Lymphocytes % 2.5 % (10-50); Mean Corpuscular HGB Conc 30.1 g/dL (31.8-35.4); Mean Corpuscular Hemoglobin 29.2 pg (27.0-31.2); Mean Corpuscular Volume 97.2 fl (80-94); Monocytes # 0.7 K/mm3 (0.1-1.0); Monocytes % 3.5 % (1.7-9.3); Neutrophils % 93.7 % (37.0-80.0); Platelet Count 494 K/mm3 (142-424); Red Blood Count 2.25 M/mm3 (4.60-6.20); Red Cell Distribution Width 17.1 % (11.5-17.5); White Blood Count 20.3 K/mm3 (4.8-10.8)
--- NOTE | 2021-05-03 13:49 | HMH.PHACONS ---
- Pharmacy Consult Date: 05/03/21 Time: 13:49 Referring provider: DR. YAÑEZ Reason for Consult:: VANCOMYCIN DOSING Allergies and ADEs:: Allergies Allergy/AdvReac Type Severity Reaction Status Date / Time No Known Allergies Allergy Verified 04/14/21 18:51 Home Medications:: Home Medications Medication Instructions Recorded Confirmed Type No Known Home Medications 04/14/21 04/14/21 History Height: 1.85 m Weight: 105.6 kg Laboratory Results:: Laboratory Results - last 24 hr 05/02/21 06:13: POC Glucose 321 H* 05/02/21 08:55: Blood Type O Positive, Antibody Screen Negative, Crossmatch (AHG) See Detail 05/02/21 12:21: POC Glucose 377 H* 05/02/21 14:32: WBC 20.8 H*, RBC 2.35 L, Hgb 7.3 L, Hct 23.5 L, MCV 99.9 H, MCH 30.8, MCHC 30.9 L, RDW 15.3, Plt Count 587 H, MPV 9.6, Neut % (Auto) 95.1 H, Lymph % (Auto) 1.8 L, [place] % (Auto) 2.8, Eos % (Auto) 0.0 L, Baso % (Auto) 0.2, Neut # (Auto) 19.8 H, Lymph # (Auto) 0.4 L, Bennett # (Auto) 0.6, Eos # (Auto) 0.0, Baso # (Auto) 0.0, Total Counted 100, Neutrophils % (Manual) 93 H, Lymphocytes % (Manual) 5 L, Monocytes % (Manual) 2, Platelet Estimate Moderate increase, Hypochromasia 2+, Anisocytosis 1+, Macrocytosis 1+ 05/02/21 16:58: POC Glucose 335 H* 05/02/21 18:51: APTT 64.3 H* 05/02/21 20:46: POC Glucose 349 H* 05/02/21 21:00: Hgb 6.7 L*, Hct 22.4 L 05/03/21 01:00: APTT 66.6 H* 05/03/21 05:55: Sodium 146 H, Potassium 6.2 H* D, Chloride 106, Carbon Dioxide 34 H, Anion Gap 12.2, BUN 116 H* D, Creatinine 4.80 H D, Estimated Creat Clear 22, Estimated GFR 12 L*, Est GFR ( Amer) 15 L* D, Glucose 334 H, Calcium 7.2 L 05/03/21 05:55: WBC 22.2 H*, RBC 2.52 L, Hgb 7.4 L D, Hct 24.5 L, MCV 97.2 H, MCH 29.2, MCHC 30.1 L, RDW 17.0, Plt Count 533 H, MPV 9.4, Neut % (Auto) 93.2 H, Lymph % (Auto) 3.0 L, [place] % (Auto) 3.6, Eos % (Auto) 0.0 L, Baso % (Auto) 0.2, Neut # (Auto) 20.7 H, Lymph # (Auto) 0.7, [place] # (Auto) 0.8, Eos # (Auto) 0.0, Baso # (Auto) 0.1, Total Counted 100, Neutrophils % (Manual) 92 H, Lymphocytes % (Manual) 4 L, Monocytes % (Manual) 4, Nucleated RBCs 2, Platelet Estimate Normal, Hypochromasia 2+ 05/03/21 06:00: Specimen Source Right radial, O2 % 60, ABG pH 7.26 L, ABG pCO2 71.4 H, ABG pO2 83.6, ABG HCO3 31.1 H, ABG Total CO2 33.3 H, ABG O2 Saturation 95, ABG Base Excess 4.0 H, Willian Test Patient unable, ABG Lactate 1.4, Vent Rate 26, Tidal Volume 440, PEEP 12 05/03/21 06:30: POC Glucose 358 H* 05/03/21 08:00: APTT 66.9 H* Assessment and Plan (1) Tachycardia Status: Acute Category: Medical Code(s): R00.0 - Tachycardia, unspecified (2) Pneumonia due to COVID-19 virus Status: Acute Category: Medical Code(s): U07.1 - COVID-19; J12.82 - Pneumonia due to coronavirus disease 2019 (3) Respiratory failure with hypoxia Status: Acute Qualifiers: Chronicity: acute Qualified Code(s): J96.01 - Acute respiratory failure with hypoxia Category: Medical Code(s): J96.91 - Respiratory failure, unspecified with hypoxia (4) Pulmonary embolism Status: Acute Qualifiers: Pulmonary embolism type: single subsegmental (without acute cor pulmonale) Qualified Code(s): I26.93 - Single subsegmental pulmonary embolism without acute cor pulmonale Category: Medical Code(s): I26.99 - Other pulmonary embolism without acute cor pulmonale (5) Subcutaneous air Status: Acute Category: Medical Code(s): T79.7XXA - Traumatic subcutaneous emphysema, initial encounter (6) Pneumothorax Status: Acute Category: Medical Code(s): J93.9 - Pneumothorax, unspecified (7) Abnormal chest x-ray Status: Acute Category: Medical Code(s): R93.89 - Abnormal findings on diagnostic imaging of other specified body structures - Assessment and plan all Dx Assessment and Plan for all problems:: Pharmacokinetic dosing service Objective: Patient: Floor: Age: 65 yo Serum creatinine: 4.80 mg/dL Height: 72.
[2021-05-03 13:55] LABS: Chloride 107 mmol/L (98-107); Sodium 146 mmol/L (136-145)
[2021-05-03 13:57] LABS: Hemoglobin 6.6 g/dL (14.1-18.0)
[2021-05-03 13:59] LABS: Anion Gap 12.2 mEq/L (5-15); Calcium 7.8 mg/dl (8.4-10.2); Carbon Dioxide 33 mmol/L (22.0-30.0); Glucose 249 mg/dl (74-100)
[2021-05-03 14:05] LABS: Creatinine Clearance Estimated 21 mL/min (50-200); Estimated Glomerular Filt Rate 11 ml/min (>60); GFR (African American) 14 ML/MIN (>60)
[2021-05-03 14:08] LABS: Blood Urea Nitrogen 117 mg/dl (9-20); Potassium 6.2 mmoL/L (3.5-5.1)
--- NOTE | 2021-05-03 15:45 | PC.NURSE ---
[facility] called to give an update on bed availability. Currently still no beds available.
[2021-05-03 19:15] LABS: Hematocrit 22.6 % (42.0-52.0); Hemoglobin 7.1 g/dL (14.1-18.0)
--- NOTE | 2021-05-03 20:00 | PC.NURSE ---
calling report to Yamilex ESTRADA in [facility] at [facility], pt being transported via ambulance
--- NOTE | 2021-05-03 20:42 | HMH.DCSUM ---
General - General Admission date:: 04/14/21 Discharge date: 05/03/21 HPI HPI: 65-year-old male patient presents to the [facility] emergency department with reports of increasing shortness of breath, fatigue, nonproductive cough for approximately 11 days. He reports he has had fever/chills/body aches and Waiting to get better and shortness of breath to decrease when shortness of breath increased he decided to go to the emergency department. 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 He does not have a primary care provider denies any medication and does not have any chronic medical conditions, he also reports he is a non-smoker 04/14/21 CXR: FINDINGS: Lungs: Patchy left lung infiltrate peripherally, predominantly ground-glass, characteristic of COVID-19 pneumonitis. Pleural spaces: Unremarkable. No pleural effusion. No pneumothorax. Heart/Mediastinum: Unremarkable. No cardiomegaly. Bones/joints: Unremarkable. IMPRESSION: Patchy left lung infiltrate peripherally, predominantly ground-glass, characteristic of COVID-19 pneumonitis. Electronically signed by Tomas Lopez MD 04/14/21 Chest CTA: FINDINGS: Pulmonary arteries: Normal. No pulmonary emboli. Aorta: Unremarkable. No aortic aneurysm. No aortic dissection. Lungs: Posterior segment right lower lobe embolus. Bibasilar dependent atelectasis. Ground-glass peripheral infiltrates bilaterally characteristic of COVID-19 pneumonitis. Pleural spaces: Unremarkable. No pneumothorax. No pleural effusion. Heart: Unremarkable. No cardiomegaly. No pericardial effusion. Lymph nodes: Unremarkable. No enlarged lymph nodes. Liver: Fatty liver. Bones/joints: Unremarkable. No acute fracture. Soft tissues: Unremarkable. IMPRESSION: 1. Ground-glass peripheral infiltrates bilaterally characteristic of COVID-19 pneumonitis. 2. Posterior segment right lower lobe embolus. 3. Bibasilar dependent atelectasis. 4. Fatty liver. Addendum Dictated By: Tomas Lopez MD 65-year-old male patient resting in bed quietly denies any increased shortness of breath during the night current oxygenation 94% on 30 L 100% Vapotherm. Hospital Course Hospital Course: this is a long and complicated course for this pt admitted with covid-19- CTA showed right lower lobe pulm embolism and has been receiving Lovenox twice daily dosing Mr. Donald is a 65-year-old no significant prior respiratory complaints, no smoking history, not yet vaccinated for COVID-19 pneumonia presented to the hospital with worsening respiratory status and found to be having Covid important was called for further management. 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 He is not sure where he has contracted COVID-19 from. 65-year-old male, no significant prior respiratory complaints, no significant smoking history. Not yet vaccinated for COVID-19 pneumonia. Present with worsening fatigue malaise and respiratory distress. CRP elevated at 140. D-dimer at 0.92. CTA revealed no pulmonary embolism showed bilateral diffuse groundglass opacities along with lower lobe patchy consolidation/atelectasis. Plan: -Initiate proning protocol -Recommend to escalate current inpatient status to stepdown -Continue high flow nasal cannula to maintain O2 saturation goal of 88% and above, patient this morning on 30 L 100% saturating 90%. -Continue ceftriaxone azithromycin for total of 5 days, blood cultures pending. -Continue remdesivir, dexamethasone and baricitinib. -Combivent every 6 as needed. pt has ongoing progression of disease- , no significant prior respiratory complaints, no significant smoking history. Not yet vaccinated for COVID-19 pneumonia. Present with worsening fatigue malaise and respiratory distress.
--- NOTE | 2021-05-03 21:12 | PC.NURSE ---
pt transferring to [facility] in [place], RN accompanied pt en route 2111-pt leaving floor via stretcher with RN, EMT, and ribbon cleaner present 2116-pt into ambulance 2120-127/66 (88), 99% on FIO2 100%, 20, 213-117/71 (86), 99%, 20, 105 2152-115/69 (84), 99%, 20, 2208-117/72 (87), 99%, 20, 105 2209-pt admitted to [facility] room 20, hand off given to Yamilex ESTRADA
[2021-05-04 16:34] LABS: POC Glucose,Bedside 165 (70-110)
[2021-05-04 16:34] LABS: POC Glucose,Bedside 186 (70-110)
[2021-05-04 16:34] LABS: POC Glucose,Bedside 254 (70-110)
[2021-05-04 16:34] LABS: POC Glucose,Bedside 159 (70-110)
--- NOTE | 2021-05-07 16:39 | P.PCN_ITS ---
[facility] Procedure Note Procedure Note:: Radial Arterial Line Placement: Indication procedure: Hemodynamic monitoring. Date of the procedure: 04/26/2021 A time out was performed. My hands were washed immediately prior to the procedure. I wore a surgical cap, mask with protective eyewear, sterile gown and sterile gloves throughout the procedure. After an Willian test was performed to ensure adequate perfusion, the RIGHT wrist was prepped using chlorhexidine scrub and draped in sterile fashion using a three quarter sheet drape and sterile towels. Ultrasoung was used to indetify radial artery and the wrist was positioned in the usual fashion. Anesthesia was achieved using 1% lidocaine. Under ultrasound guidance, using the Arrow Radial Arterial Line Kit, a needle was inserted into the radial artery. Arterial blood was seen to pulsate in the flash chamber. The internal guidewire was advanced easily into the radial art melquiades. The catheter was then advanced over the wire and the needle and wire were withdrawn. The catheter was sutured in place. A sterile opsite was placed over the catheter at the insertion site. The patient tolerated the procedure without any hemodynamic compromise. At the time of procedure completion, the catheter was connected to the arterial line monitor and calibrated. Appropriate wavefo rm and blood pressure tracing was observed. Estimated blood loss is 5cc. Patient tolerated the procedure well
== END 2021-05-03 21:12 | disposition short-term general hospital (02) | DRG 207 ==
LOC: ER 20:38 → 2ND 20:44
PROVIDERS: Family Medicine; Internal Medicine Pulmonary Disease; Nurse Practitioner Family; Admitting Provider Emergency Medicine; Emergency Provider Emergency Medicine; Visit Provider Emergency Medicine
DX: U07.1 COVID-19 (principal); J12.82 Pneumonia due to coronavirus disease 2019; J96.01 Acute respiratory failure with hypoxia; I26.93 Single subsegmental thrombotic pulmonary embolism without acute cor pulmonale; T79.7XXA Traumatic subcutaneous emphysema, initial encounter; E87.0 Hyperosmolality and hypernatremia; J93.9 Pneumothorax, unspecified; D64.9 Anemia, unspecified; N28.9 Disorder of kidney and ureter, unspecified
CPT/HCPCS: 31500; 94002; 36620; 36415; 70150; 71045; 71250; 71275; 80048; 80053; 81001; 82728; 82803; 82962; 83605; 83615; 84145; 84484; 85007; 85014; 85018; 85025; 85378; 85384; 85610; 85651; 85730; 86140; 86850; 87040; 87070; 87077; 87081; 87102; 87186; 87205; 87206; 93005; 93306; 94003; 94640; 94760; 94761; 96365; 96367; 97163; 97530; 99285; C9803; J0456; J0696; J2185; J2543; J2704; P9016; Q9967; U0003; U0005